=== PATIENT | male | born 1935 | race Caucasian/White ===

== ENCOUNTER 2017-08-31 15:51 | Inpatient (IN) | payer MEDICARE, OTHER ==
[~2017-08-31 15:51] MED LIST: ETOMIDATE 20 MG INJ; ROCURONIUM 50 MG INJ
[2017-08-31] MEDS ORDERED: BISACODYL (EC) 5 MG TAB PO (16:30)
[2017-08-31] MEDS: SOD CHLORIDE 0.9% 1,000 ML IV (16:30)
[2017-08-31] MEDS ORDERED: DOCUSATE SODIUM 100 MG CAP PO (16:30)
[2017-08-31] MEDS ORDERED: NACL 0.9% 3 ML SYG IV (16:30)
[2017-08-31] MEDS: NA PHOSPHATE/BIPHOS 133 ML ENEMA PR (17:45)
[2017-08-31] MEDS: MAGNESIUM HYDROXIDE 30ML CUP PO (17:46)
[2017-08-31] MEDS: METOCLOPRAMIDE 10 MG INJ IV (17:46)
[2017-08-31] MEDS: LORAZEPAM 2 MG INJ IV (19:12)
[2017-08-31] MEDS ORDERED: HEPARIN 5,000 UNIT/0.5 ML VIAL (20:47)
[2017-08-31] MEDS: POLYETHYLENE GLYCOL 17 GM PACKET PO (20:53)
[2017-08-31] MEDS: clonAZEPAM 0.5 MG TAB PO (20:53)
[2017-08-31] MEDS: ATORVASTATIN 10 MG TAB PO (20:53)
[2017-08-31] MEDS ORDERED: PROPRANOLOL 40 MG TAB PO (21:00)
[2017-08-31] MEDS ORDERED: ATORVASTATIN 10 MG TAB PO (21:00)
[2017-08-31] MEDS ORDERED: FERROUS FUMARATE (SR) TAB PO (21:00)
[2017-08-31] MEDS: PROPRANOLOL (LA) 60 MG CAP PO (22:17)
[2017-08-31] MEDS: HEPARIN 5,000 UNIT/0.5 ML VIAL SC (22:20)
[2017-08-31 23:53] LABS: AADO2 Arterial 552.4 mmHg (7.0-24.0); Allen Test ACCEPTAB; Arterial Base Excess -6.9 mmol/L (-3.0-3); Arterial Blood Gas Oxygen Sat 97.1 mmHG (95.0-100.0); Arterial COHb 0.6 % (0.0-3.0); Arterial Fraction of Oxyhgb 96.3 % (93.0-99.0); Arterial HCO3 20.9 mmol/L (22.0-26.0); Arterial MetHb 0.2 % (0.0-1.5); Arterial Total Hemglobin 14.1 g/dl (12.0-18.0); Arterial pCO2 50.7 mmhg (35-45); MODE MASK - NRB; Site Left Radial
[2017-09-01] MEDS: ALBUTEROL/IPRATROPIUM (NEB) 3 ML AMP HHN (00:19)
[2017-09-01] MEDS: METOCLOPRAMIDE 10 MG INJ IV ×5 (00:35→23:57)
[2017-09-01 01:19] LABS: ADD MAN DIFF? NO
[2017-09-01 01:22] LABS: BASOPHIL # 0.1 10^3/ul (0.0-0.1); BASOPHILS % 0.3 % (0.0-2.0); HEMATOCRIT 36.7 % (42.0-52.0); HEMOGLOBIN 12.2 g/dl (14.0-18.0); LYMPHOCYTES # 1.4 10^3/ul (0.8-2.9); MEAN CORPUSCULAR HEMOGLOBIN 30.3 pg (29.0-33.0); MEAN CORPUSCULAR HGB CONC 33.2 g/dl (32.0-37.0); MEAN CORPUSCULAR VOLUME 91.3 fl (82.0-101.0); MEAN PLATELET VOLUME 9.1 fl (7.4-10.4); MONOCYTES % 5.1 % (0.0-11.0); NEUTROPHIL # 17.6 10^3/ul (1.6-7.5); NEUTROPHILS % 86.5 % (39.0-77.0); NUCLEATED RED BLOOD CELLS% 0.1 /100WBC (0.0-0.0); PLATELET COUNT 365 10^3/UL (140-415); RED BLOOD COUNT 4.02 10^6/ul (4.70-6.10); RED CELL DISTRIBUTION WIDTH 13.4 % (11.5-14.5)
[2017-09-01 01:22] LABS: WHITE BLOOD COUNT 20.3 10^3/ul (4.8-10.8)
[2017-09-01] MEDS ORDERED: PROPOFOL 100 ML (01:40)
[2017-09-01 01:41] LABS: ANION GAP 20 (8-16); BLOOD UREA NITROGEN 38 mg/dl (7-20); CALCIUM 9.3 mg/dl (8.4-10.2); CARBON DIOXIDE 20 mmol/L (21-31); CHLORIDE 108 mmol/L (97-110); CREATININE 1.26 mg/dl (0.61-1.24); GLUCOSE 136 mg/dl (70-220); SODIUM 145 mmol/L (135-144)
[2017-09-01 01:44] LABS: POTASSIUM 2.7 mmol/L (3.5-5.1)
[2017-09-01 02:16] LABS: MAGNESIUM 1.9 mg/dl (1.7-2.5)
[2017-09-01] MEDS: PROPOFOL 100 ML IV ×2 (03:00→13:11)
[2017-09-01] MEDS: MAGNESIUM SULFATE 1 GM/D5W 100 ML IVPB (03:20)
[2017-09-01] MEDS: POTASSIUM CHLORIDE 250 ML IVPB ×2 (03:36→07:09)
[2017-09-01] MEDS: AMPICILLIN/SULB 3 GM/NS (PMX) 100 ML IVPB ×5 (03:36→23:57)
[2017-09-01 03:37] LABS: AADO2 Arterial 569.2 mmHg (7.0-24.0); Allen Test ACCEPTAB; Arterial Blood Gas Oxygen Sat 97.3 mmHG (95.0-100.0); Arterial COHb 0.3 % (0.0-3.0); Arterial Fraction of Oxyhgb 96.6 % (93.0-99.0); Arterial MetHb 0.4 % (0.0-1.5); MODE VENT - AC; Site Right Radial
[2017-09-01] MEDS: SOD CHLORIDE 0.9% 1,000 ML IV (05:45)
[2017-09-01] MEDS: HEPARIN 5,000 UNIT/0.5 ML VIAL SC ×3 (05:54→21:48)
[2017-09-01 06:35] LABS: ADD MAN DIFF? NO
[2017-09-01 06:38] LABS: WHITE BLOOD COUNT 19.9 10^3/ul (4.8-10.8)
[2017-09-01 06:38] LABS: BASOPHIL # 0.1 10^3/ul (0.0-0.1); BASOPHILS % 0.3 % (0.0-2.0); EOSINOPHILS % 0.1 % (0.0-7.0); HEMATOCRIT 36.8 % (42.0-52.0); LYMPHOCYTES # 2.2 10^3/ul (0.8-2.9); LYMPHOCYTES % 11.2 % (15.0-51.0); MEAN CORPUSCULAR HEMOGLOBIN 30.1 pg (29.0-33.0); MEAN CORPUSCULAR HGB CONC 32.6 g/dl (32.0-37.0); MEAN CORPUSCULAR VOLUME 92.2 fl (82.0-101.0); MEAN PLATELET VOLUME 10.1 fl (7.4-10.4); MONOCYTE # 1.2 10^3/ul (0.3-0.9); MONOCYTES % 5.9 % (0.0-11.0); NEUTROPHIL # 16.3 10^3/ul (1.6-7.5); NEUTROPHILS % 81.8 % (39.0-77.0); PLATELET COUNT 329 10^3/UL (140-415); RED BLOOD COUNT 3.99 10^6/ul (4.70-6.10); RED CELL DISTRIBUTION WIDTH 13.4 % (11.5-14.5)
[2017-09-01 07:18] LABS: ALANINE AMINOTRANSFERASE 12 IU/L (13-69); ALBUMIN 3.5 g/dl (3.3-4.9); ALBUMIN/GLOBULIN RATIO 1.06; ALKALINE PHOSPHATASE 101 IU/L (42-121); ANION GAP 25 (8-16); ASPARTATE AMINO TRANSFERASE 36 IU/L (15-46); BILIRUBIN,INDIRECT 0.2 mg/dl (0-1.1); BILIRUBIN,TOTAL 0.2 mg/dl (0.2-1.3); BLOOD UREA NITROGEN 39 mg/dl (7-20); CARBON DIOXIDE 15 mmol/L (21-31); CHLORIDE 110 mmol/L (97-110); CREATININE 1.39 mg/dl (0.61-1.24); GLUCOSE 104 mg/dl (70-220); POTASSIUM 3.1 mmol/L (3.5-5.1); SODIUM 147 mmol/L (135-144); TOTAL PROTEIN 6.8 g/dl (6.1-8.1)
[2017-09-01 07:33] LABS: LACTIC ACID 1.8 mmol/L (0.5-2.0)
[2017-09-01 07:34] LABS: PHOSPHORUS 4.5 mg/dl (2.5-4.9)
[2017-09-01 07:34] LABS: MAGNESIUM 1.9 mg/dl (1.7-2.5)
[2017-09-01] MEDS: PROPRANOLOL (LA) 60 MG CAP PO ×3 (09:00→20:15)
[2017-09-01] MEDS ORDERED: CLOPIDOGREL 75 MG TAB PO (09:00)
[2017-09-01] MEDS: POLYETHYLENE GLYCOL 17 GM PACKET PO ×2 (09:00→20:48)
[2017-09-01] MEDS: CLOPIDOGREL 75 MG TAB PO (09:00)
[2017-09-01] MEDS: ASPIRIN (EC) 81 MG TAB PO (09:00)
[2017-09-01] MEDS: ONDANSETRON 4 MG INJ IV (10:55)
[2017-09-01 13:09] LABS: AADO2 Arterial 108.2 mmHg (7.0-24.0); Allen Test ACCEPTAB; Arterial Base Excess -2.4 mmol/L (-3.0-3); Arterial Blood Gas Oxygen Sat 92.4 mmHG (95.0-100.0); Arterial COHb 0.3 % (0.0-3.0); Arterial Fraction of Oxyhgb 91.9 % (93.0-99.0); Arterial HCO3 21.2 mmol/L (22.0-26.0); Arterial MetHb 0.2 % (0.0-1.5); Arterial Total Hemglobin 12.5 g/dl (12.0-18.0); Arterial pCO2 32.6 mmhg (35-45); Blood Gas PS 10; MODE VENT - CPAP; Site Right Radial
[2017-09-01 19:52] LABS: ANION GAP 17 (8-16); BLOOD UREA NITROGEN 41 mg/dl (7-20); CALCIUM 8.9 mg/dl (8.4-10.2); CARBON DIOXIDE 26 mmol/L (21-31); CHLORIDE 110 mmol/L (97-110); CREATININE 1.24 mg/dl (0.61-1.24); GLUCOSE 105 mg/dl (70-220); POTASSIUM 3.1 mmol/L (3.5-5.1); SODIUM 150 mmol/L (135-144)
[2017-09-01] MEDS: ATORVASTATIN 10 MG TAB PO (20:15)
[2017-09-01 20:19] LABS: MAGNESIUM 2.4 mg/dl (1.7-2.5)
[2017-09-01] MEDS ORDERED: POTASSIUM CHLORIDE 250 ML IVPB (20:30)
[2017-09-01] MEDS: PHENOL 1.4% SOLN 180 ML BTL MT (20:44)
[2017-09-01] MEDS: POTASSIUM CHLORIDE 40 MEQ in SOD CHLORIDE 0.9% 250 ML IV (21:22)
[2017-09-02] MEDS: PROPOFOL 100 ML IV ×2 (00:02→15:08)
[2017-09-02] MEDS: POTASSIUM CHLORIDE 40 MEQ in SOD CHLORIDE 0.9% 250 ML IV (02:07)
[2017-09-02] MEDS: METOCLOPRAMIDE 10 MG INJ IV ×3 (05:53→18:22)
[2017-09-02] MEDS: AMPICILLIN/SULB 3 GM/NS (PMX) 100 ML IVPB ×3 (05:55→18:23)
[2017-09-02] MEDS: HEPARIN 5,000 UNIT/0.5 ML VIAL SC ×3 (05:59→21:44)
[2017-09-02 06:22] LABS: ADD MAN DIFF? NO
[2017-09-02 06:26] LABS: BASOPHIL # 0.1 10^3/ul (0.0-0.1); BASOPHILS % 0.4 % (0.0-2.0); EOSINOPHILS # 0.3 10^3/ul (0.0-0.5); HEMATOCRIT 34.1 % (42.0-52.0); HEMOGLOBIN 10.9 g/dl (14.0-18.0); LYMPHOCYTES # 1.7 10^3/ul (0.8-2.9); LYMPHOCYTES % 12.1 % (15.0-51.0); MEAN CORPUSCULAR HEMOGLOBIN 29.9 pg (29.0-33.0); MEAN CORPUSCULAR VOLUME 93.7 fl (82.0-101.0); MEAN PLATELET VOLUME 9.6 fl (7.4-10.4); MONOCYTES % 7.6 % (0.0-11.0); NEUTROPHIL # 10.6 10^3/ul (1.6-7.5); NEUTROPHILS % 77.4 % (39.0-77.0); PLATELET COUNT 334 10^3/UL (140-415); RED BLOOD COUNT 3.64 10^6/ul (4.70-6.10); RED CELL DISTRIBUTION WIDTH 13.7 % (11.5-14.5)
[2017-09-02 06:26] LABS: WHITE BLOOD COUNT 13.7 10^3/ul (4.8-10.8)
[2017-09-02 07:39] LABS: ALANINE AMINOTRANSFERASE 23 IU/L (13-69); ALBUMIN 3.1 g/dl (3.3-4.9); ALBUMIN/GLOBULIN RATIO 0.93; ALKALINE PHOSPHATASE 103 IU/L (42-121); ANION GAP 20 (8-16); ASPARTATE AMINO TRANSFERASE 33 IU/L (15-46); BILIRUBIN,INDIRECT 0.1 mg/dl (0-1.1); BILIRUBIN,TOTAL 0.1 mg/dl (0.2-1.3); BLOOD UREA NITROGEN 36 mg/dl (7-20); CARBON DIOXIDE 23 mmol/L (21-31); CHLORIDE 115 mmol/L (97-110); CREATININE 1.05 mg/dl (0.61-1.24); GLUCOSE 94 mg/dl (70-220); POTASSIUM 3.5 mmol/L (3.5-5.1); SODIUM 154 mmol/L (135-144); TOTAL PROTEIN 6.4 g/dl (6.1-8.1)
[2017-09-02] MEDS: POLYETHYLENE GLYCOL 17 GM PACKET PO ×2 (09:00→21:42)
[2017-09-02 09:03] LABS: AADO2 Arterial 105.2 mmHg (7.0-24.0); Allen Test ACCEPTAB; Arterial Blood Gas Oxygen Sat 92.4 mmHG (95.0-100.0); Arterial COHb 0.4 % (0.0-3.0); Arterial Fraction of Oxyhgb 91.7 % (93.0-99.0); Arterial HCO3 21.4 mmol/L (22.0-26.0); Arterial MetHb 0.4 % (0.0-1.5); Arterial Total Hemglobin 11.9 g/dl (12.0-18.0); Arterial pCO2 35.8 mmhg (35-45); MODE NASAL CANNULA; Site Right Radial
[2017-09-02] MEDS: BISACODYL (EC) 5 MG TAB PO (09:30)
[2017-09-02] MEDS: METHYLNALTREXONE 12 MG/0.6 ML VIAL SC (11:04)
[2017-09-02] MEDS: ASPIRIN (EC) 81 MG TAB PO (12:41)
[2017-09-02] MEDS: CLOPIDOGREL 75 MG TAB PO (12:41)
[2017-09-02] MEDS: PROPRANOLOL (LA) 60 MG CAP PO ×3 (12:41→21:43)
[2017-09-02] MEDS: ATORVASTATIN 10 MG TAB PO (21:42)
[2017-09-02] MEDS: clonAZEPAM 0.5 MG TAB PO (23:00)
[2017-09-03] MEDS: METOCLOPRAMIDE 10 MG INJ IV ×5 (00:23→23:40)
[2017-09-03] MEDS: AMPICILLIN/SULB 3 GM/NS (PMX) 100 ML IVPB ×5 (01:23→23:32)
[2017-09-03 05:09] LABS: ADD MAN DIFF? NO
[2017-09-03 05:15] LABS: BASOPHIL # 0.1 10^3/ul (0.0-0.1); BASOPHILS % 0.5 % (0.0-2.0); EOSINOPHILS # 0.4 10^3/ul (0.0-0.5); EOSINOPHILS % 3.3 % (0.0-7.0); HEMATOCRIT 32.1 % (42.0-52.0); HEMOGLOBIN 10.3 g/dl (14.0-18.0); LYMPHOCYTES # 1.9 10^3/ul (0.8-2.9); LYMPHOCYTES % 14.8 % (15.0-51.0); MEAN CORPUSCULAR HEMOGLOBIN 30.2 pg (29.0-33.0); MEAN CORPUSCULAR HGB CONC 32.1 g/dl (32.0-37.0); MEAN CORPUSCULAR VOLUME 94.1 fl (82.0-101.0); MEAN PLATELET VOLUME 9.9 fl (7.4-10.4); MONOCYTE # 1.2 10^3/ul (0.3-0.9); MONOCYTES % 8.9 % (0.0-11.0); NEUTROPHIL # 9.4 10^3/ul (1.6-7.5); PLATELET COUNT 327 10^3/UL (140-415); RED BLOOD COUNT 3.41 10^6/ul (4.70-6.10)
[2017-09-03 05:55] LABS: ALANINE AMINOTRANSFERASE 29 IU/L (13-69); ALBUMIN 2.7 g/dl (3.3-4.9); ALBUMIN/GLOBULIN RATIO 0.79; ALKALINE PHOSPHATASE 84 IU/L (42-121); ANION GAP 12 (8-16); ASPARTATE AMINO TRANSFERASE 28 IU/L (15-46); BILIRUBIN,INDIRECT 0.2 mg/dl (0-1.1); BILIRUBIN,TOTAL 0.2 mg/dl (0.2-1.3); BLOOD UREA NITROGEN 28 mg/dl (7-20); CARBON DIOXIDE 26 mmol/L (21-31); CHLORIDE 116 mmol/L (97-110); GLUCOSE 96 mg/dl (70-220); SODIUM 151 mmol/L (135-144); TOTAL PROTEIN 6.1 g/dl (6.1-8.1)
[2017-09-03] MEDS: HEPARIN 5,000 UNIT/0.5 ML VIAL SC ×3 (06:10→21:28)
[2017-09-03 06:16] LABS: POTASSIUM 2.5 mmol/L (3.5-5.1)
[2017-09-03] MEDS: POTASSIUM CHLORIDE 250 ML IVPB ×2 (08:01→13:36)
[2017-09-03] MEDS: PROPRANOLOL (LA) 60 MG CAP PO ×3 (08:59→21:37)
[2017-09-03] MEDS: CLOPIDOGREL 75 MG TAB PO (08:59)
[2017-09-03] MEDS: ASPIRIN (EC) 81 MG TAB PO (09:00)
[2017-09-03] MEDS: POLYETHYLENE GLYCOL 17 GM PACKET PO ×2 (09:00→21:30)
[2017-09-03] MEDS: clonAZEPAM 0.5 MG TAB PO ×2 (09:02→21:30)
[2017-09-03] MEDS: ATORVASTATIN 10 MG TAB PO (21:24)
[2017-09-04 05:44] LABS: ADD MAN DIFF? NO
[2017-09-04 05:56] LABS: BASOPHIL # 0.1 10^3/ul (0.0-0.1); BASOPHILS % 0.5 % (0.0-2.0); EOSINOPHILS # 0.3 10^3/ul (0.0-0.5); HEMATOCRIT 36.2 % (42.0-52.0); HEMOGLOBIN 11.4 g/dl (14.0-18.0); LYMPHOCYTES # 1.9 10^3/ul (0.8-2.9); LYMPHOCYTES % 12.4 % (15.0-51.0); MEAN CORPUSCULAR HEMOGLOBIN 30.3 pg (29.0-33.0); MEAN CORPUSCULAR HGB CONC 31.5 g/dl (32.0-37.0); MEAN CORPUSCULAR VOLUME 96.3 fl (82.0-101.0); MEAN PLATELET VOLUME 9.9 fl (7.4-10.4); MONOCYTE # 1.4 10^3/ul (0.3-0.9); MONOCYTES % 9.4 % (0.0-11.0); NEUTROPHIL # 11.5 10^3/ul (1.6-7.5); NEUTROPHILS % 75.1 % (39.0-77.0); PLATELET COUNT 373 10^3/UL (140-415); RED BLOOD COUNT 3.76 10^6/ul (4.70-6.10); RED CELL DISTRIBUTION WIDTH 13.9 % (11.5-14.5)
[2017-09-04 05:56] LABS: WHITE BLOOD COUNT 15.3 10^3/ul (4.8-10.8)
[2017-09-04] MEDS: METOCLOPRAMIDE 10 MG INJ IV ×3 (06:18→17:25)
[2017-09-04] MEDS: AMPICILLIN/SULB 3 GM/NS (PMX) 100 ML IVPB ×3 (06:19→17:25)
[2017-09-04] MEDS: HEPARIN 5,000 UNIT/0.5 ML VIAL SC ×2 (06:21→13:13)
[2017-09-04 07:19] LABS: ALANINE AMINOTRANSFERASE 19 IU/L (13-69); ALBUMIN 2.9 g/dl (3.3-4.9); ALBUMIN/GLOBULIN RATIO 0.78; ALKALINE PHOSPHATASE 86 IU/L (42-121); ANION GAP 13 (8-16); ASPARTATE AMINO TRANSFERASE 30 IU/L (15-46); BILIRUBIN,INDIRECT 0.4 mg/dl (0-1.1); BILIRUBIN,TOTAL 0.4 mg/dl (0.2-1.3); BLOOD UREA NITROGEN 22 mg/dl (7-20); CALCIUM 8.8 mg/dl (8.4-10.2); CARBON DIOXIDE 25 mmol/L (21-31); CHLORIDE 115 mmol/L (97-110); GLUCOSE 106 mg/dl (70-220); SODIUM 150 mmol/L (135-144); TOTAL PROTEIN 6.6 g/dl (6.1-8.1)
[2017-09-04] MEDS: ALBUTEROL/IPRATROPIUM (NEB) 3 ML AMP HHN ×2 (07:21→19:40)
[2017-09-04] MEDS: PROPRANOLOL (LA) 60 MG CAP PO ×3 (08:47→20:29)
[2017-09-04] MEDS: ASPIRIN (EC) 81 MG TAB PO (08:47)
[2017-09-04] MEDS: CLOPIDOGREL 75 MG TAB PO (08:48)
[2017-09-04] MEDS: POLYETHYLENE GLYCOL 17 GM PACKET PO ×2 (08:48→20:30)
[2017-09-04] MEDS: clonAZEPAM 0.5 MG TAB PO ×2 (08:49→20:27)
[2017-09-04 10:45] LABS: Allen Test ACCEPTAB; Arterial Base Excess -3.1 mmol/L (-3.0-3); Arterial COHb 0.6 % (0.0-3.0); Arterial Fraction of Oxyhgb 87.2 % (93.0-99.0); Arterial HCO3 20.5 mmol/L (22.0-26.0); Arterial MetHb 0.3 % (0.0-1.5); Arterial Total Hemglobin 12.5 g/dl (12.0-18.0); Arterial pCO2 32.3 mmhg (35-45); MODE NASAL CANNULA; Site Right Radial
[2017-09-04] MEDS: D5W + KCL 20 MEQ 1,000 ML IV ×2 (11:22→21:00)
[2017-09-04] MEDS: POTASSIUM CHLORIDE (SR) 20 MEQ TAB PO ×2 (11:37→15:44)
[2017-09-04] MEDS: FUROSEMIDE 40 MG INJ IV (11:41)
[2017-09-04] MEDS: ATORVASTATIN 10 MG TAB PO (20:28)
[2017-09-04] MEDS: BARIUM SULF 2% 450 ML BTL (BERRY SMOOTHIE) PO (22:30)
[2017-09-04] MEDS ORDERED: VANCOMYCIN IV PER PHARMACY XX (22:30)
[2017-09-04 23:35] LABS: Allen Test ACCEPTAB; Arterial Base Excess -5.8 mmol/L (-3.0-3); Arterial Blood Gas Oxygen Sat 93.6 mmHG (95.0-100.0); Arterial COHb 0.4 % (0.0-3.0); Arterial HCO3 18.2 mmol/L (22.0-26.0); Arterial MetHb 0.2 % (0.0-1.5); Arterial Total Hemglobin 12.7 g/dl (12.0-18.0); Arterial pCO2 31.3 mmhg (35-45); MODE MASK - NRB; Site Right Radial
[2017-09-04] MEDS: VANCOMYCIN 2 GM in SOD CHLORIDE 0.9% 500 ML IVPB (23:57)
[2017-09-05] MEDS ORDERED: SUCCINYLCHOLINE CHLORIDE 100 MG/5 ML SYG IV
[2017-09-05] MEDS ORDERED: ETOMIDATE 20 MG INJ
[2017-09-05] MEDS ORDERED: PIPER-TAZO 3.375 GM IV (PMX) 50 ML IVPB
[2017-09-05] MEDS: METOCLOPRAMIDE 10 MG INJ IV ×5 (00:07→23:54)
[2017-09-05] MEDS: HEPARIN 5,000 UNIT/0.5 ML VIAL SC ×4 (00:10→21:02)
[2017-09-05] MEDS: D5W + KCL 20 MEQ 1,000 ML IV (01:21)
[2017-09-05] MEDS ORDERED: PHENYLephrine (100 MCG/ML) 5ML SYG (02:23)
[2017-09-05] MEDS ORDERED: ROCURONIUM 50 MG INJ ×2 (02:23→07:00)
[2017-09-05 02:39] LABS: AADO2 Arterial 587.6 mmHg (7.0-24.0); Allen Test ACCEPTAB; Arterial Base Excess -4.2 mmol/L (-3.0-3); Arterial COHb 0 % (0.0-3.0); Arterial Fraction of Oxyhgb 96.8 % (93.0-99.0); Arterial HCO3 19.4 mmol/L (22.0-26.0); Arterial MetHb 0.2 % (0.0-1.5); Arterial Total Hemglobin 11.9 g/dl (12.0-18.0); Arterial pCO2 31.2 mmhg (35-45); MODE VENT - AC; Site Right Radial
[2017-09-05] MEDS ORDERED: METHYLENE BLUE 1% 10 ML INJ (03:07)
[2017-09-05] MEDS ORDERED: morphine 2 MG INJ IV (05:00)
[2017-09-05] MEDS ORDERED: LORAZEPAM 2 MG INJ IV (05:00)
[2017-09-05] MEDS ORDERED: LABETALOL HCL 20MG INJ IV (05:00)
[2017-09-05] MEDS ORDERED: EPHEDrine SULFATE 50 MG/5 ML SYG IV (05:00)
[2017-09-05] MEDS ORDERED: morphine 10 MG INJ IV (05:00)
[2017-09-05] MEDS ORDERED: hydrALAzine 20 MG INJ IV (05:00)
[2017-09-05] MEDS ORDERED: MIDAZOLAM 1 MG/ML 2 ML INJ IV (05:00)
[2017-09-05] MEDS ORDERED: NORepinephrine 8MG/250 ML (PMX 250 ML (05:16)
[2017-09-05] MEDS: NORepinephrine 8MG/250 ML (PMX 250 ML IV ×2 (05:30→05:41)
[2017-09-05] MEDS: SOD CHLORIDE 0.9% 1,000 ML IV ×2 (05:39→11:05)
[2017-09-05 05:44] LABS: ADD MAN DIFF? NO
[2017-09-05] MEDS: PANTOPRAZOLE 40 MG INJ IV (05:48)
[2017-09-05] MEDS: AMPICILLIN/SULB 3 GM/NS (PMX) 100 ML IVPB ×3 (05:48→15:33)
[2017-09-05 06:01] LABS: BASOPHILS % 0.2 % (0.0-2.0); EOSINOPHILS # 0.2 10^3/ul (0.0-0.5); EOSINOPHILS % 1.2 % (0.0-7.0); HEMATOCRIT 32.8 % (42.0-52.0); HEMOGLOBIN 10.1 g/dl (14.0-18.0); LYMPHOCYTES # 1.9 10^3/ul (0.8-2.9); LYMPHOCYTES % 14.3 % (15.0-51.0); MEAN CORPUSCULAR HEMOGLOBIN 29.9 pg (29.0-33.0); MEAN CORPUSCULAR HGB CONC 30.8 g/dl (32.0-37.0); MEAN PLATELET VOLUME 10.1 fl (7.4-10.4); MONOCYTE # 0.8 10^3/ul (0.3-0.9); MONOCYTES % 6.2 % (0.0-11.0); NEUTROPHILS % 77.1 % (39.0-77.0); PLATELET COUNT 325 10^3/UL (140-415); RED BLOOD COUNT 3.38 10^6/ul (4.70-6.10); RED CELL DISTRIBUTION WIDTH 13.8 % (11.5-14.5)
[2017-09-05] MEDS: morphine 2 MG INJ IV (06:29)
[2017-09-05] MEDS: D5-NS + KCL 20 MEQ 1,000 ML IV ×3 (06:33→23:04)
[2017-09-05 06:39] LABS: ANION GAP 10 (8-16); BLOOD UREA NITROGEN 22 mg/dl (7-20); CALCIUM 7.7 mg/dl (8.4-10.2); CARBON DIOXIDE 23 mmol/L (21-31); CHLORIDE 114 mmol/L (97-110); CREATININE 1.38 mg/dl (0.61-1.24); GLUCOSE 148 mg/dl (70-220); MAGNESIUM 1.4 mg/dl (1.7-2.5); POTASSIUM 3.1 mmol/L (3.5-5.1); SODIUM 144 mmol/L (135-144)
[2017-09-05 06:46] LABS: B-TYPE NATRIURETIC PEPTIDE 2600 PG/ML (0-450)
[2017-09-05] MEDS: ENOXAPARIN 40 MG/0.4 ML SYG SC (07:00)
[2017-09-05] MEDS: POLYETHYLENE GLYCOL 17 GM PACKET PO ×2 (08:40→20:18)
[2017-09-05] MEDS: morphine 4 MG/ML VIAL IV (08:52)
[2017-09-05] MEDS: ASPIRIN (EC) 81 MG TAB PO (09:00)
[2017-09-05] MEDS: PROPRANOLOL (LA) 60 MG CAP PO ×3 (09:00→20:17)
[2017-09-05] MEDS: clonAZEPAM 0.5 MG TAB PO ×2 (09:00→20:17)
[2017-09-05] MEDS: CLOPIDOGREL 75 MG TAB PO (09:00)
[2017-09-05] MEDS: FUROSEMIDE 40 MG INJ IV (09:00)
[2017-09-05] MEDS ORDERED: FENTAnyl (DRIP) 1000 mcg/100mL 100 ML IV (09:18)
[2017-09-05] MEDS: FENTAnyl (DRIP) 1000 mcg/100mL 100 ML IV ×2 (09:28→21:30)
[2017-09-05] MEDS: MAGNESIUM SULFATE 4 GM/100 ML 100 ML IVPB (09:35)
[2017-09-05] MEDS: POTASSIUM CHLORIDE 250 ML IVPB ×2 (10:34→13:28)
[2017-09-05] MEDS ORDERED: ALBUMIN HUMAN 5% 250 ML (13:11)
[2017-09-05] MEDS: metroNIDAZOLE 500 MG/NS (PMX) 100 ML IVPB (13:20)
[2017-09-05] MEDS: ALBUMIN HUMAN 5% 250 ML IV (13:29)
[2017-09-05] MEDS ORDERED: PHENYLephrine 20MG IN 250 ML 250 ML IV (13:30)
[2017-09-05] MEDS ORDERED: PHENYLephrine 10 MG INJ (14:42)
[2017-09-05] MEDS: PHENYLephrine 20MG IN 250 ML 250 ML IV ×4 (15:09→23:56)
[2017-09-05] MEDS: ATORVASTATIN 10 MG TAB PO (20:18)
[2017-09-05] MEDS: FAMOTIDINE 20 MG INJ IV (20:24)
[2017-09-05] MEDS ORDERED: AMPICILLIN/SULB 3 GM/NS (PMX) 100 ML IVPB (21:00)
[2017-09-05] MEDS: MEROPENEM 500MG/50 ML (PMX) 50 ML IVPB (21:30)
[2017-09-05] MEDS ORDERED: ACETAMINOPHEN 1000MG/100ML IV 100 ML (22:18)
[2017-09-05] MEDS ORDERED: ACETAMINOPHEN 1000MG/100ML IV 100 ML IVPB (22:30)
[2017-09-05] MEDS: ACETAMINOPHEN 1000 MG/100 ML IVPB (22:34)
[2017-09-06] MEDS: PHENYLephrine 40 MG in DEXTROSE 5% 496 ML IV ×2 (03:28→10:56)
[2017-09-06] MEDS: VANCOMYCIN 1 GM in NS 250 ML IVPB (04:45)
[2017-09-06 05:31] LABS: ADD MAN DIFF? NO
[2017-09-06 05:38] LABS: BASOPHIL # 0.1 10^3/ul (0.0-0.1); BASOPHILS % 0.4 % (0.0-2.0); EOSINOPHILS # 0.5 10^3/ul (0.0-0.5); EOSINOPHILS % 2.5 % (0.0-7.0); HEMATOCRIT 32.4 % (42.0-52.0); LYMPHOCYTES # 2.4 10^3/ul (0.8-2.9); LYMPHOCYTES % 12.4 % (15.0-51.0); MEAN CORPUSCULAR HEMOGLOBIN 30.6 pg (29.0-33.0); MEAN CORPUSCULAR HGB CONC 30.9 g/dl (32.0-37.0); MEAN CORPUSCULAR VOLUME 99.1 fl (82.0-101.0); MEAN PLATELET VOLUME 10.4 fl (7.4-10.4); MONOCYTE # 1.5 10^3/ul (0.3-0.9); MONOCYTES % 7.7 % (0.0-11.0); NEUTROPHIL # 14.7 10^3/ul (1.6-7.5); PLATELET COUNT 320 10^3/UL (140-415); RED BLOOD COUNT 3.27 10^6/ul (4.70-6.10); RED CELL DISTRIBUTION WIDTH 13.7 % (11.5-14.5)
[2017-09-06 05:38] LABS: WHITE BLOOD COUNT 19.3 10^3/ul (4.8-10.8)
[2017-09-06] MEDS: D5-NS + KCL 20 MEQ 1,000 ML IV (05:41)
[2017-09-06] MEDS: METOCLOPRAMIDE 10 MG INJ IV ×3 (05:41→18:40)
[2017-09-06] MEDS: HEPARIN 5,000 UNIT/0.5 ML VIAL SC ×2 (05:51→13:29)
[2017-09-06 05:56] LABS: LACTIC ACID 1.4 mmol/L (0.5-2.0)
[2017-09-06 06:10] LABS: ANION GAP 13 (8-16); BLOOD UREA NITROGEN 24 mg/dl (7-20); CALCIUM 7.5 mg/dl (8.4-10.2); CARBON DIOXIDE 17 mmol/L (21-31); CHLORIDE 119 mmol/L (97-110); GLUCOSE 182 mg/dl (70-220); PHOSPHORUS 3.6 mg/dl (2.5-4.9); POTASSIUM 4.6 mmol/L (3.5-5.1); SODIUM 144 mmol/L (135-144)
[2017-09-06] MEDS: MEROPENEM 500MG/50 ML (PMX) 50 ML IVPB ×3 (06:38→21:27)
[2017-09-06] MEDS: PROPRANOLOL (LA) 60 MG CAP PO (08:54)
[2017-09-06] MEDS: clonAZEPAM 0.5 MG TAB PO ×2 (08:56→21:00)
[2017-09-06] MEDS: CLOPIDOGREL 75 MG TAB PO (08:56)
[2017-09-06] MEDS: POLYETHYLENE GLYCOL 17 GM PACKET PO ×2 (08:56→21:00)
[2017-09-06] MEDS: ASPIRIN (EC) 81 MG TAB PO (08:57)
[2017-09-06] MEDS: FAMOTIDINE 20 MG INJ IV (09:00)
[2017-09-06] MEDS: ENOXAPARIN 40 MG/0.4 ML SYG SC (10:08)
[2017-09-06] MEDS: SOD CHLORIDE 0.9% 1,000 ML IV ×3 (10:09→18:12)
[2017-09-06] MEDS: ACETAMINOPHEN 1000 MG/100 ML IVPB (10:09)
[2017-09-06] MEDS ORDERED: ACETAMINOPHEN 650 MG SUPP PR (11:30)
[2017-09-06] MEDS: CASPOFUNGIN 70 MG in SOD CHLORIDE 0.9% 250 ML IVPB (18:13)
[2017-09-06] MEDS ORDERED: LORAZEPAM 2 MG INJ (20:54)
[2017-09-06] MEDS: ATORVASTATIN 10 MG TAB PO (21:00)
[2017-09-06] MEDS: LORAZEPAM 2 MG INJ IV (21:08)
[2017-09-06 21:27] LABS: ADD MAN DIFF? NO
[2017-09-06] MEDS: LEVETIRACETAM IV 500 MG in DEXTROSE 5% 100 ML IVPB (21:27)
[2017-09-06 21:29] LABS: BASOPHIL # 0.1 10^3/ul (0.0-0.1); BASOPHILS % 0.3 % (0.0-2.0); EOSINOPHILS # 0.2 10^3/ul (0.0-0.5); EOSINOPHILS % 1.2 % (0.0-7.0); HEMATOCRIT 30.2 % (42.0-52.0); HEMOGLOBIN 9.2 g/dl (14.0-18.0); LYMPHOCYTES # 1.2 10^3/ul (0.8-2.9); LYMPHOCYTES % 6.3 % (15.0-51.0); MEAN CORPUSCULAR HEMOGLOBIN 30.4 pg (29.0-33.0); MEAN CORPUSCULAR HGB CONC 30.5 g/dl (32.0-37.0); MEAN CORPUSCULAR VOLUME 99.7 fl (82.0-101.0); MEAN PLATELET VOLUME 10.2 fl (7.4-10.4); MONOCYTE # 0.9 10^3/ul (0.3-0.9); MONOCYTES % 4.4 % (0.0-11.0); NEUTROPHIL # 16.7 10^3/ul (1.6-7.5); NEUTROPHILS % 85.8 % (39.0-77.0); PLATELET COUNT 241 10^3/UL (140-415); RED BLOOD COUNT 3.03 10^6/ul (4.70-6.10); RED CELL DISTRIBUTION WIDTH 14.1 % (11.5-14.5)
[2017-09-06 21:29] LABS: WHITE BLOOD COUNT 19.4 10^3/ul (4.8-10.8)
[2017-09-06 21:48] LABS: ANION GAP 14 (8-16); BLOOD UREA NITROGEN 25 mg/dl (7-20); CALCIUM 7.3 mg/dl (8.4-10.2); CARBON DIOXIDE 16 mmol/L (21-31); CHLORIDE 115 mmol/L (97-110); CREATININE 2.62 mg/dl (0.61-1.24); GLUCOSE 86 mg/dl (70-220); MAGNESIUM 1.9 mg/dl (1.7-2.5); PHOSPHORUS 4.5 mg/dl (2.5-4.9); POTASSIUM 4.2 mmol/L (3.5-5.1); SODIUM 141 mmol/L (135-144)
[2017-09-06] MEDS: FENTAnyl (DRIP) 1000 mcg/100mL 100 ML IV (21:59)
[2017-09-06 23:10] LABS: SODIUM,URINE RANDOM 58 mmol/L (30-90)
[2017-09-06 23:10] LABS: CREATININE,URINE RANDOM 99.89 mg/dl (20-370)
[2017-09-06 23:31] LABS: ADD UMIC YES; UR AMORPHOUS CRYSTAL FEW /HPF (NONE SEEN); UR ASCORBIC ACID NEGATIVE (NEGATIVE); UR BACTERIA FEW /HPF (NONE SEEN); UR BILIRUBIN (Dip) NEGATIVE (NEGATIVE); UR BLOOD (Dip) 2+ mg/dL (NEGATIVE); UR CLARITY CLOUDY (CLEAR); UR COLOR YELLOW (YELLOW); UR GLUCOSE (Dip) NEGATIVE (NEGATIVE); UR KETONES (Dip) NEGATIVE (NEGATIVE); UR LEUKOCYTE ESTERASE (Dip) 3+ Leu/ul (NEGATIVE); UR MUCUS FEW /HPF (NONE SEEN); UR NITRITE (Dip) NEGATIVE (NEGATIVE); UR RBC 29 /HPF (0-5); UR SPECIFIC GRAVITY (Dip) 1.014 (1.003-1.030); UR TOTAL PROTEIN (Dip) 2+ mg/dl (NEGATIVE); UR UROBILINOGEN (Dip) NEGATIVE (NEGATIVE); UR WBC 126 /HPF (0-5)
[2017-09-07] MEDS: METOCLOPRAMIDE 10 MG INJ IV ×4 (00:37→18:23)
[2017-09-07] MEDS: HEPARIN 5,000 UNIT/0.5 ML VIAL SC ×4 (00:38→21:51)
[2017-09-07] MEDS: ACETAMINOPHEN 1000MG/100ML IV 100 ML IVPB (01:31)
[2017-09-07] MEDS: SOD CHLORIDE 0.9% 1,000 ML IV (04:37)
[2017-09-07 05:45] LABS: ADD MAN DIFF? NO
[2017-09-07 05:57] LABS: BASOPHIL # 0.1 10^3/ul (0.0-0.1); BASOPHILS % 0.2 % (0.0-2.0); EOSINOPHILS # 0.2 10^3/ul (0.0-0.5); EOSINOPHILS % 0.8 % (0.0-7.0); HEMATOCRIT 31.7 % (42.0-52.0); HEMOGLOBIN 9.5 g/dl (14.0-18.0); LYMPHOCYTES # 1.6 10^3/ul (0.8-2.9); LYMPHOCYTES % 7.1 % (15.0-51.0); MEAN CORPUSCULAR HEMOGLOBIN 30.2 pg (29.0-33.0); MEAN CORPUSCULAR VOLUME 100.6 fl (82.0-101.0); MEAN PLATELET VOLUME 10.6 fl (7.4-10.4); MONOCYTE # 0.9 10^3/ul (0.3-0.9); MONOCYTES % 4.3 % (0.0-11.0); NEUTROPHIL # 18.9 10^3/ul (1.6-7.5); NEUTROPHILS % 86.5 % (39.0-77.0); NUCLEATED RED BLOOD CELLS% 0.1 /100WBC (0.0-0.0); PLATELET COUNT 291 10^3/UL (140-415); RED BLOOD COUNT 3.15 10^6/ul (4.70-6.10); RED CELL DISTRIBUTION WIDTH 14.1 % (11.5-14.5)
[2017-09-07 05:57] LABS: WHITE BLOOD COUNT 21.9 10^3/ul (4.8-10.8)
[2017-09-07] MEDS: MEROPENEM 500MG/50 ML (PMX) 50 ML IVPB ×2 (06:04→21:34)
[2017-09-07 06:26] LABS: ANION GAP 12 (8-16); BLOOD UREA NITROGEN 27 mg/dl (7-20); CALCIUM 7.7 mg/dl (8.4-10.2); CARBON DIOXIDE 17 mmol/L (21-31); CHLORIDE 117 mmol/L (97-110); CREATININE 2.88 mg/dl (0.61-1.24); GLUCOSE 94 mg/dl (70-220); MAGNESIUM 1.9 mg/dl (1.7-2.5); PHOSPHORUS 4.7 mg/dl (2.5-4.9); POTASSIUM 4.3 mmol/L (3.5-5.1); SODIUM 142 mmol/L (135-144)
[2017-09-07 08:13] LABS: AADO2 Arterial 439.4 mmHg (7.0-24.0); Allen Test ACCEPTAB; Arterial Blood Gas Oxygen Sat 95.5 mmHG (95.0-100.0); Arterial COHb 0.1 % (0.0-3.0); Arterial HCO3 15.5 mmol/L (22.0-26.0); Arterial MetHb 0.4 % (0.0-1.5); Arterial Total Hemglobin 10.4 g/dl (12.0-18.0); Arterial pCO2 46.9 mmhg (35-45); MODE VENT - AC; Site Right Radial
[2017-09-07] MEDS: CLOPIDOGREL 75 MG TAB PO (08:58)
[2017-09-07] MEDS: ASPIRIN (EC) 81 MG TAB PO (08:58)
[2017-09-07] MEDS: POLYETHYLENE GLYCOL 17 GM PACKET PO ×2 (08:59→21:34)
[2017-09-07] MEDS: FAMOTIDINE 20 MG INJ IV (08:59)
[2017-09-07] MEDS: clonAZEPAM 0.5 MG TAB PO ×2 (08:59→21:34)
[2017-09-07] MEDS: NA BICARBONATE 8.4% 50 ML SYG IV (10:32)
[2017-09-07] MEDS: SODIUM BICARBONATE (IV ADD) 100 MEQ in DEXTROSE 5%-0.45% NACL 900 ML IV ×2 (12:08→21:33)
[2017-09-07] MEDS: metroNIDAZOLE 500 MG/NS (PMX) 100 ML IVPB ×2 (14:09→21:36)
[2017-09-07 14:26] LABS: Allen Test ACCEPTAB; MODE VENT - AC; Site Right Radial
[2017-09-07] MEDS: CASPOFUNGIN 50 MG in SOD CHLORIDE 0.9% 250 ML IVPB (15:47)
[2017-09-07] MEDS ORDERED: VANCOMYCIN 1 GM in NS 250 ML IVPB (17:00)
[2017-09-07] MEDS: ACETAMINOPHEN 325 MG TAB PO (21:34)
[2017-09-07] MEDS: ATORVASTATIN 10 MG TAB PO (21:34)
[2017-09-08] MEDS: METOCLOPRAMIDE 10 MG INJ IV ×5 (00:54→23:48)
[2017-09-08 05:20] LABS: ADD MAN DIFF? NO
[2017-09-08 05:24] LABS: BASOPHILS % 0.1 % (0.0-2.0); EOSINOPHILS # 0.1 10^3/ul (0.0-0.5); EOSINOPHILS % 0.7 % (0.0-7.0); HEMATOCRIT 28.1 % (42.0-52.0); HEMOGLOBIN 8.6 g/dl (14.0-18.0); LYMPHOCYTES # 1.2 10^3/ul (0.8-2.9); MEAN CORPUSCULAR HEMOGLOBIN 30.1 pg (29.0-33.0); MEAN CORPUSCULAR HGB CONC 30.6 g/dl (32.0-37.0); MEAN CORPUSCULAR VOLUME 98.3 fl (82.0-101.0); MEAN PLATELET VOLUME 10.7 fl (7.4-10.4); MONOCYTE # 0.7 10^3/ul (0.3-0.9); NEUTROPHIL # 14.7 10^3/ul (1.6-7.5); NEUTROPHILS % 87.4 % (39.0-77.0); PLATELET COUNT 229 10^3/UL (140-415); RED BLOOD COUNT 2.86 10^6/ul (4.70-6.10); RED CELL DISTRIBUTION WIDTH 14.1 % (11.5-14.5)
[2017-09-08 05:24] LABS: WHITE BLOOD COUNT 16.9 10^3/ul (4.8-10.8)
[2017-09-08 06:01] LABS: ANION GAP 13 (8-16); BLOOD UREA NITROGEN 33 mg/dl (7-20); CALCIUM 7.3 mg/dl (8.4-10.2); CARBON DIOXIDE 20 mmol/L (21-31); CHLORIDE 115 mmol/L (97-110); CREATININE 3.08 mg/dl (0.61-1.24); GLUCOSE 121 mg/dl (70-220); MAGNESIUM 1.8 mg/dl (1.7-2.5); PHOSPHORUS 5.2 mg/dl (2.5-4.9); POTASSIUM 3.8 mmol/L (3.5-5.1); SODIUM 144 mmol/L (135-144)
[2017-09-08 06:07] LABS: VANCOMYCIN,RANDOM 10.2 ug/ml
[2017-09-08] MEDS: metroNIDAZOLE 500 MG/NS (PMX) 100 ML IVPB ×3 (06:27→21:29)
[2017-09-08] MEDS: SODIUM BICARBONATE (IV ADD) 100 MEQ in DEXTROSE 5%-0.45% NACL 900 ML IV ×2 (06:28→10:23)
[2017-09-08] MEDS: HEPARIN 5,000 UNIT/0.5 ML VIAL SC ×3 (06:31→21:34)
[2017-09-08] MEDS: FUROSEMIDE 40 MG INJ IV (07:00)
[2017-09-08 08:48] LABS: Allen Test ACCEPTAB; MODE VENT - AC; Site Right Radial
[2017-09-08] MEDS: VANCOMYCIN 1 GM in NS 250 ML IVPB (09:53)
[2017-09-08] MEDS: POLYETHYLENE GLYCOL 17 GM PACKET PO ×2 (09:57→21:29)
[2017-09-08] MEDS: FAMOTIDINE 20 MG INJ IV (10:00)
[2017-09-08] MEDS: CLOPIDOGREL 75 MG TAB PO (10:23)
[2017-09-08] MEDS: ASPIRIN (EC) 81 MG TAB PO (10:23)
[2017-09-08] MEDS: MEROPENEM 500MG/50 ML (PMX) 50 ML IVPB ×2 (10:45→21:50)
[2017-09-08] MEDS: clonAZEPAM 0.5 MG TAB PO ×2 (10:45→21:39)
[2017-09-08 10:55] LABS: AADO2 Arterial 445.5 mmHg (7.0-24.0); Arterial Base Excess -9.3 mmol/L (-3.0-3); Arterial Blood Gas Oxygen Sat 95.9 mmHG (95.0-100.0); Arterial COHb 0.1 % (0.0-3.0); Arterial Fraction of Oxyhgb 95.3 % (93.0-99.0); Arterial HCO3 17.5 mmol/L (22.0-26.0); Arterial MetHb 0.5 % (0.0-1.5); Arterial Total Hemglobin 10.6 g/dl (12.0-18.0); Arterial pCO2 41.4 mmhg (35-45)
[2017-09-08 10:56] LABS: AADO2 Arterial 304.2 mmHg (7.0-24.0); Arterial Base Excess -9.1 mmol/L (-3.0-3); Arterial Blood Gas Oxygen Sat 99.1 mmHG (95.0-100.0); Arterial COHb 0.2 % (0.0-3.0); Arterial Fraction of Oxyhgb 98.6 % (93.0-99.0); Arterial HCO3 14.5 mmol/L (22.0-26.0); Arterial MetHb 0.3 % (0.0-1.5); Arterial Total Hemglobin 8.9 g/dl (12.0-18.0); Arterial pCO2 24.4 mmhg (35-45)
[2017-09-08] MEDS: MAGNESIUM SULFATE 2 GM/50 ML 50 ML IVPB (13:18)
[2017-09-08 14:01] LABS: CREATININE, RANDOM URINE 122 mg/dL (20-370); MICROALBUMIN 17.9 mg/dL; MICROALBUMIN/CREATININE RATIO 147 (<30)
[2017-09-08] MEDS: AMIODARONE 900 MG in DEXTROSE 5% 482 ML IV (15:11)
[2017-09-08] MEDS: CASPOFUNGIN 50 MG in SOD CHLORIDE 0.9% 250 ML IVPB (16:00)
[2017-09-08] MEDS: FENTAnyl (DRIP) 1000 mcg/100mL 100 ML IV (18:32)
[2017-09-08] MEDS: ATORVASTATIN 10 MG TAB PO (21:29)
[2017-09-08] MEDS: BALSAM PERU/CASTOR OIL 60 GM TUBE TOP (21:38)
[2017-09-08] MEDS ORDERED: NORepinephrine 8MG/250 ML (PMX 250 ML (22:24)
[2017-09-09] MEDS: SODIUM BICARBONATE (IV ADD) 100 MEQ in DEXTROSE 5%-0.45% NACL 900 ML IV (01:13)
[2017-09-09 05:01] LABS: ADD MAN DIFF? NO
[2017-09-09 05:12] LABS: BASOPHILS % 0.2 % (0.0-2.0); EOSINOPHILS # 0.4 10^3/ul (0.0-0.5); EOSINOPHILS % 2.8 % (0.0-7.0); HEMOGLOBIN 8.8 g/dl (14.0-18.0); LYMPHOCYTES # 0.9 10^3/ul (0.8-2.9); LYMPHOCYTES % 6.4 % (15.0-51.0); MEAN CORPUSCULAR HEMOGLOBIN 29.9 pg (29.0-33.0); MEAN CORPUSCULAR HGB CONC 31.4 g/dl (32.0-37.0); MEAN CORPUSCULAR VOLUME 95.2 fl (82.0-101.0); MEAN PLATELET VOLUME 10.2 fl (7.4-10.4); MONOCYTE # 0.7 10^3/ul (0.3-0.9); MONOCYTES % 5.2 % (0.0-11.0); NEUTROPHIL # 11.9 10^3/ul (1.6-7.5); NEUTROPHILS % 84.8 % (39.0-77.0); PLATELET COUNT 233 10^3/UL (140-415); RED BLOOD COUNT 2.94 10^6/ul (4.70-6.10); RED CELL DISTRIBUTION WIDTH 14.1 % (11.5-14.5)
[2017-09-09] MEDS: metroNIDAZOLE 500 MG/NS (PMX) 100 ML IVPB ×3 (05:20→21:39)
[2017-09-09] MEDS: HEPARIN 5,000 UNIT/0.5 ML VIAL SC ×3 (05:21→21:41)
[2017-09-09] MEDS: METOCLOPRAMIDE 10 MG INJ IV ×3 (05:30→18:36)
[2017-09-09 06:27] LABS: ANION GAP 9 (8-16); BLOOD UREA NITROGEN 35 mg/dl (7-20); CALCIUM 7.5 mg/dl (8.4-10.2); CARBON DIOXIDE 26 mmol/L (21-31); CHLORIDE 111 mmol/L (97-110); CREATININE 2.85 mg/dl (0.61-1.24); GLUCOSE 108 mg/dl (70-220); MAGNESIUM 1.8 mg/dl (1.7-2.5); PHOSPHORUS 4.2 mg/dl (2.5-4.9); POTASSIUM 3.2 mmol/L (3.5-5.1); SODIUM 143 mmol/L (135-144)
[2017-09-09] MEDS: SOD CHLORIDE 0.9% 1,000 ML IV (08:13)
[2017-09-09] MEDS: POTASSIUM CHLORIDE 250 ML IVPB (08:13)
[2017-09-09 09:13] LABS: AADO2 Arterial 411.1 mmHg (7.0-24.0); Allen Test ACCEPTAB; Arterial Base Excess -3.1 mmol/L (-3.0-3); Arterial Blood Gas Oxygen Sat 97.5 mmHG (95.0-100.0); Arterial COHb 0.5 % (0.0-3.0); Arterial Fraction of Oxyhgb 96.7 % (93.0-99.0); Arterial HCO3 23.9 mmol/L (22.0-26.0); Arterial MetHb 0.3 % (0.0-1.5); Arterial Total Hemglobin 12.1 g/dl (12.0-18.0); Arterial pCO2 51.6 mmhg (35-45); MODE VENT - AC; Site Right Radial
[2017-09-09] MEDS: FAMOTIDINE 20 MG INJ IV (09:19)
[2017-09-09] MEDS: ASPIRIN (EC) 81 MG TAB PO (09:19)
[2017-09-09] MEDS: MEROPENEM 500MG/50 ML (PMX) 50 ML IVPB ×2 (09:19→21:39)
[2017-09-09] MEDS: CLOPIDOGREL 75 MG TAB PO (09:19)
[2017-09-09] MEDS: POLYETHYLENE GLYCOL 17 GM PACKET PO ×2 (09:19→21:40)
[2017-09-09] MEDS: BALSAM PERU/CASTOR OIL 60 GM TUBE TOP ×2 (09:23→21:40)
[2017-09-09] MEDS: clonAZEPAM 0.5 MG TAB PO ×2 (09:28→21:42)
[2017-09-09] MEDS: FUROSEMIDE 40 MG INJ IV (10:09)
[2017-09-09] MEDS: FENTAnyl (DRIP) 1000 mcg/100mL 100 ML IV (12:57)
[2017-09-09] MEDS: CASPOFUNGIN 50 MG in SOD CHLORIDE 0.9% 250 ML IVPB (15:50)
[2017-09-09] MEDS: ACETAMINOPHEN 325 MG TAB PO (21:40)
[2017-09-09] MEDS: ATORVASTATIN 10 MG TAB PO (21:40)
[2017-09-10] MEDS: METOCLOPRAMIDE 10 MG INJ IV ×5 (00:27→23:33)
[2017-09-10 03:43] LABS: ADD MAN DIFF? NO
[2017-09-10] MEDS: SOD CHLORIDE 0.9% 1,000 ML IV ×2 (04:06→23:24)
[2017-09-10] MEDS: FENTAnyl (DRIP) 1000 mcg/100mL 100 ML IV (04:17)
[2017-09-10 04:19] LABS: WHITE BLOOD COUNT 11.1 10^3/ul (4.8-10.8)
[2017-09-10 04:19] LABS: BASOPHILS % 0.2 % (0.0-2.0); EOSINOPHILS # 0.3 10^3/ul (0.0-0.5); EOSINOPHILS % 2.3 % (0.0-7.0); HEMATOCRIT 26.8 % (42.0-52.0); HEMOGLOBIN 8.5 g/dl (14.0-18.0); LYMPHOCYTES # 1.1 10^3/ul (0.8-2.9); LYMPHOCYTES % 9.7 % (15.0-51.0); MEAN CORPUSCULAR HEMOGLOBIN 29.7 pg (29.0-33.0); MEAN CORPUSCULAR HGB CONC 31.7 g/dl (32.0-37.0); MEAN CORPUSCULAR VOLUME 93.7 fl (82.0-101.0); MEAN PLATELET VOLUME 10.4 fl (7.4-10.4); MONOCYTE # 0.6 10^3/ul (0.3-0.9); MONOCYTES % 5.1 % (0.0-11.0); NEUTROPHIL # 9.1 10^3/ul (1.6-7.5); NEUTROPHILS % 82.1 % (39.0-77.0); PLATELET COUNT 281 10^3/UL (140-415); RED BLOOD COUNT 2.86 10^6/ul (4.70-6.10); RED CELL DISTRIBUTION WIDTH 14.1 % (11.5-14.5)
[2017-09-10 04:20] LABS: ANION GAP 11 (8-16); BLOOD UREA NITROGEN 35 mg/dl (7-20); CALCIUM 7.2 mg/dl (8.4-10.2); CARBON DIOXIDE 27 mmol/L (21-31); CHLORIDE 108 mmol/L (97-110); CREATININE 2.45 mg/dl (0.61-1.24); GLUCOSE 96 mg/dl (70-220); MAGNESIUM 1.6 mg/dl (1.7-2.5); POTASSIUM 3.1 mmol/L (3.5-5.1); SODIUM 143 mmol/L (135-144)
[2017-09-10] MEDS: metroNIDAZOLE 500 MG/NS (PMX) 100 ML IVPB ×3 (05:52→21:20)
[2017-09-10] MEDS: POTASSIUM CHLORIDE 50 ML IVPB ×4 (05:52→09:11)
[2017-09-10] MEDS: HEPARIN 5,000 UNIT/0.5 ML VIAL SC (05:53)
[2017-09-10] MEDS ORDERED: POTASSIUM CHLORIDE 30 MEQ in SOD CHLORIDE 0.9% 150 ML IVPB (06:30)
[2017-09-10 08:08] LABS: AADO2 Arterial 337.6 mmHg (7.0-24.0); Allen Test ACCEPTAB; Arterial Base Excess -0.1 mmol/L (-3.0-3); Arterial Blood Gas Oxygen Sat 98.2 mmHG (95.0-100.0); Arterial COHb 0.7 % (0.0-3.0); Arterial Fraction of Oxyhgb 97.3 % (93.0-99.0); Arterial HCO3 24.8 mmol/L (22.0-26.0); Arterial MetHb 0.2 % (0.0-1.5); Arterial pCO2 41.3 mmhg (35-45); MODE VENT - AC; Site Right Radial
[2017-09-10] MEDS: POLYETHYLENE GLYCOL 17 GM PACKET PO ×2 (09:00→20:42)
[2017-09-10] MEDS: CLOPIDOGREL 75 MG TAB PO (09:11)
[2017-09-10] MEDS: MEROPENEM 500MG/50 ML (PMX) 50 ML IVPB ×2 (09:11→20:42)
[2017-09-10] MEDS: FAMOTIDINE 20 MG INJ IV (09:11)
[2017-09-10] MEDS: clonAZEPAM 0.5 MG TAB PO ×2 (09:11→20:42)
[2017-09-10] MEDS: ASPIRIN (EC) 81 MG TAB PO (09:11)
[2017-09-10] MEDS: BALSAM PERU/CASTOR OIL 60 GM TUBE TOP ×2 (09:12→20:42)
[2017-09-10] MEDS: VANCOMYCIN 1 GM in NS 250 ML IVPB (10:03)
[2017-09-10] MEDS: ENOXAPARIN 80 MG/0.8 ML SYG SC (10:08)
[2017-09-10] MEDS: MAGNESIUM SULFATE 2 GM/50 ML 50 ML IVPB (11:11)
[2017-09-10] MEDS: FUROSEMIDE 20 MG INJ IV (15:30)
[2017-09-10] MEDS: CASPOFUNGIN 50 MG in SOD CHLORIDE 0.9% 250 ML IVPB (15:30)
[2017-09-10] MEDS: ATORVASTATIN 10 MG TAB PO (20:42)
[2017-09-11] MEDS: FENTAnyl (DRIP) 1000 mcg/100mL 100 ML IV (01:54)
[2017-09-11 05:31] LABS: ADD MAN DIFF? NO
[2017-09-11] MEDS: METOCLOPRAMIDE 10 MG INJ IV ×3 (05:37→16:45)
[2017-09-11] MEDS: metroNIDAZOLE 500 MG/NS (PMX) 100 ML IVPB ×3 (05:37→21:39)
[2017-09-11 05:38] LABS: BASOPHILS % 0.3 % (0.0-2.0); EOSINOPHILS # 0.3 10^3/ul (0.0-0.5); EOSINOPHILS % 3.4 % (0.0-7.0); HEMATOCRIT 26.4 % (42.0-52.0); HEMOGLOBIN 8.4 g/dl (14.0-18.0); LYMPHOCYTES # 0.9 10^3/ul (0.8-2.9); LYMPHOCYTES % 10.4 % (15.0-51.0); MEAN CORPUSCULAR HEMOGLOBIN 29.6 pg (29.0-33.0); MEAN CORPUSCULAR HGB CONC 31.8 g/dl (32.0-37.0); MEAN PLATELET VOLUME 10.2 fl (7.4-10.4); MONOCYTE # 0.5 10^3/ul (0.3-0.9); MONOCYTES % 5.4 % (0.0-11.0); NEUTROPHIL # 7.1 10^3/ul (1.6-7.5); NEUTROPHILS % 79.5 % (39.0-77.0); PLATELET COUNT 304 10^3/UL (140-415); RED BLOOD COUNT 2.84 10^6/ul (4.70-6.10); RED CELL DISTRIBUTION WIDTH 14.3 % (11.5-14.5)
[2017-09-11 05:38] LABS: WHITE BLOOD COUNT 8.9 10^3/ul (4.8-10.8)
[2017-09-11 06:11] LABS: ANION GAP 10 (8-16); BLOOD UREA NITROGEN 37 mg/dl (7-20); CALCIUM 7.4 mg/dl (8.4-10.2); CARBON DIOXIDE 27 mmol/L (21-31); CHLORIDE 111 mmol/L (97-110); CREATININE 1.84 mg/dl (0.61-1.24); GLUCOSE 95 mg/dl (70-220); MAGNESIUM 1.8 mg/dl (1.7-2.5); PHOSPHORUS 2.9 mg/dl (2.5-4.9); SODIUM 145 mmol/L (135-144)
[2017-09-11 06:15] LABS: POTASSIUM 2.9 mmol/L (3.5-5.1)
[2017-09-11 08:11] LABS: AADO2 Arterial 305.9 mmHg (7.0-24.0); Allen Test ACCEPTAB; Arterial Base Excess -0.7 mmol/L (-3.0-3); Arterial COHb 0.3 % (0.0-3.0); Arterial Fraction of Oxyhgb 95.6 % (93.0-99.0); Arterial HCO3 22.8 mmol/L (22.0-26.0); Arterial MetHb 0.1 % (0.0-1.5); Arterial Total Hemglobin 9.2 g/dl (12.0-18.0); Arterial pCO2 33.2 mmhg (35-45); MODE VENT - AC; Site Right Radial
[2017-09-11] MEDS: POLYETHYLENE GLYCOL 17 GM PACKET PO ×2 (08:23→20:40)
[2017-09-11] MEDS: FAMOTIDINE 20 MG INJ IV (09:29)
[2017-09-11] MEDS: POTASSIUM CHLORIDE 20 MEQ POWDER FOR ORAL SOLN GTB ×2 (09:29→10:34)
[2017-09-11] MEDS: ASPIRIN 81 MG TAB GTB (09:29)
[2017-09-11] MEDS: clonAZEPAM 0.5 MG TAB PO ×2 (09:29→20:41)
[2017-09-11] MEDS: CLOPIDOGREL 75 MG TAB PO (09:29)
[2017-09-11] MEDS: MEROPENEM 500MG/50 ML (PMX) 50 ML IVPB ×2 (09:30→20:35)
[2017-09-11] MEDS: BALSAM PERU/CASTOR OIL 60 GM TUBE TOP ×2 (09:30→20:41)
[2017-09-11] MEDS: ENOXAPARIN 80 MG/0.8 ML SYG SC (09:31)
[2017-09-11] MEDS: FUROSEMIDE 40 MG INJ IV ×2 (09:34→16:53)
[2017-09-11] MEDS: MAGNESIUM SULFATE 2 GM/50 ML 50 ML IVPB (10:29)
[2017-09-11] MEDS: DIGOXIN 500 MCG INJ IV ×2 (13:37→19:38)
[2017-09-11 14:17] LABS: ANION GAP 13 (8-16); BLOOD UREA NITROGEN 37 mg/dl (7-20); CALCIUM 7.4 mg/dl (8.4-10.2); CARBON DIOXIDE 26 mmol/L (21-31); CHLORIDE 109 mmol/L (97-110); CREATININE 1.93 mg/dl (0.61-1.24); GLUCOSE 106 mg/dl (70-220); POTASSIUM 3.4 mmol/L (3.5-5.1); SODIUM 145 mmol/L (135-144)
[2017-09-11] MEDS: CASPOFUNGIN 50 MG in SOD CHLORIDE 0.9% 250 ML IVPB (16:53)
[2017-09-11] MEDS: AMIODARONE 200 MG TAB PO (20:41)
[2017-09-11] MEDS: ATORVASTATIN 10 MG TAB PO (20:41)
[2017-09-11] MEDS: METOPROLOL 25 MG TAB PO (20:41)
[2017-09-12] MEDS: metroNIDAZOLE 500 MG/NS (PMX) 100 ML IVPB ×3 (05:15→22:26)
[2017-09-12] MEDS: METOCLOPRAMIDE 10 MG INJ IV ×2 (05:15)
[2017-09-12 05:18] LABS: ADD MAN DIFF? NO
[2017-09-12 05:20] LABS: WHITE BLOOD COUNT 8.1 10^3/ul (4.8-10.8)
[2017-09-12 05:20] LABS: BASOPHILS % 0.4 % (0.0-2.0); EOSINOPHILS # 0.4 10^3/ul (0.0-0.5); HEMATOCRIT 25.2 % (42.0-52.0); HEMOGLOBIN 8.1 g/dl (14.0-18.0); LYMPHOCYTES % 12.7 % (15.0-51.0); MEAN CORPUSCULAR HEMOGLOBIN 30.2 pg (29.0-33.0); MEAN CORPUSCULAR HGB CONC 32.1 g/dl (32.0-37.0); MEAN PLATELET VOLUME 10.1 fl (7.4-10.4); MONOCYTE # 0.5 10^3/ul (0.3-0.9); MONOCYTES % 5.8 % (0.0-11.0); NEUTROPHIL # 6.1 10^3/ul (1.6-7.5); NEUTROPHILS % 74.9 % (39.0-77.0); PLATELET COUNT 336 10^3/UL (140-415); RED BLOOD COUNT 2.68 10^6/ul (4.70-6.10); RED CELL DISTRIBUTION WIDTH 14.6 % (11.5-14.5)
[2017-09-12 06:04] LABS: ALANINE AMINOTRANSFERASE 24 IU/L (13-69); ALBUMIN 1.9 g/dl (3.3-4.9); ALBUMIN/GLOBULIN RATIO 0.67; ALKALINE PHOSPHATASE 193 IU/L (42-121); ANION GAP 12 (8-16); ASPARTATE AMINO TRANSFERASE 32 IU/L (15-46); BLOOD UREA NITROGEN 37 mg/dl (7-20); CALCIUM 7.4 mg/dl (8.4-10.2); CARBON DIOXIDE 29 mmol/L (21-31); CHLORIDE 108 mmol/L (97-110); CREATININE 1.93 mg/dl (0.61-1.24); GLUCOSE 96 mg/dl (70-220); SODIUM 146 mmol/L (135-144); TOTAL PROTEIN 4.7 g/dl (6.1-8.1)
[2017-09-12 06:05] LABS: POTASSIUM 2.7 mmol/L (3.5-5.1)
[2017-09-12] MEDS ORDERED: POTASSIUM CHLORIDE 250 ML (06:10)
[2017-09-12] MEDS: POTASSIUM CHLORIDE 250 ML IVPB ×3 (06:12→16:38)
[2017-09-12 07:12] LABS: MAGNESIUM 2.1 mg/dl (1.7-2.5)
[2017-09-12 07:12] LABS: PHOSPHORUS 2.6 mg/dl (2.5-4.9)
[2017-09-12] MEDS: POLYETHYLENE GLYCOL 17 GM PACKET PO (08:08)
[2017-09-12] MEDS: METOPROLOL 25 MG TAB PO ×2 (08:42→20:56)
[2017-09-12] MEDS: SPIRONOLACTONE 25 MG TAB NGT (08:42)
[2017-09-12] MEDS: ASPIRIN 81 MG TAB GTB (08:42)
[2017-09-12] MEDS: FUROSEMIDE 40 MG INJ IV (08:42)
[2017-09-12] MEDS: AMIODARONE 200 MG TAB PO ×3 (08:43→20:55)
[2017-09-12] MEDS: CLOPIDOGREL 75 MG TAB PO (08:43)
[2017-09-12] MEDS: BALSAM PERU/CASTOR OIL 60 GM TUBE TOP ×2 (08:43→20:56)
[2017-09-12] MEDS: clonAZEPAM 0.5 MG TAB PO ×2 (08:45→20:55)
[2017-09-12] MEDS: MEROPENEM 500MG/50 ML (PMX) 50 ML IVPB ×2 (08:45→21:29)
[2017-09-12] MEDS: FAMOTIDINE 20 MG INJ IV (08:45)
[2017-09-12] MEDS: ENOXAPARIN 80 MG/0.8 ML SYG SC (08:46)
[2017-09-12 10:18] LABS: VANCOMYCIN,TROUGH 9.9 ug/ml (10.0-20.0)
[2017-09-12] MEDS: VANCOMYCIN 1 GM in NS 250 ML IVPB (10:27)
[2017-09-12 15:21] LABS: ANION GAP 10 (8-16); BLOOD UREA NITROGEN 39 mg/dl (7-20); CALCIUM 7.2 mg/dl (8.4-10.2); CARBON DIOXIDE 29 mmol/L (21-31); CHLORIDE 111 mmol/L (97-110); CREATININE 1.61 mg/dl (0.61-1.24); GLUCOSE 96 mg/dl (70-220); POTASSIUM 3.5 mmol/L (3.5-5.1); SODIUM 146 mmol/L (135-144)
[2017-09-12] MEDS: CASPOFUNGIN 50 MG in SOD CHLORIDE 0.9% 250 ML IVPB (15:57)
[2017-09-12] MEDS: ATORVASTATIN 10 MG TAB PO (20:55)
[2017-09-13] MEDS: ACETAMINOPHEN 325 MG TAB PO ×2 (04:13→16:44)
[2017-09-13 05:42] LABS: ADD MAN DIFF? NO
[2017-09-13 05:48] LABS: WHITE BLOOD COUNT 9.3 10^3/ul (4.8-10.8)
[2017-09-13 05:48] LABS: BASOPHILS % 0.3 % (0.0-2.0); EOSINOPHILS # 0.4 10^3/ul (0.0-0.5); EOSINOPHILS % 4.2 % (0.0-7.0); HEMATOCRIT 26.4 % (42.0-52.0); HEMOGLOBIN 8.2 g/dl (14.0-18.0); LYMPHOCYTES # 1.1 10^3/ul (0.8-2.9); LYMPHOCYTES % 11.4 % (15.0-51.0); MEAN CORPUSCULAR HEMOGLOBIN 29.9 pg (29.0-33.0); MEAN CORPUSCULAR HGB CONC 31.1 g/dl (32.0-37.0); MEAN CORPUSCULAR VOLUME 96.4 fl (82.0-101.0); MEAN PLATELET VOLUME 10.1 fl (7.4-10.4); MONOCYTE # 0.6 10^3/ul (0.3-0.9); MONOCYTES % 6.4 % (0.0-11.0); NEUTROPHIL # 7.1 10^3/ul (1.6-7.5); NEUTROPHILS % 76.2 % (39.0-77.0); PLATELET COUNT 407 10^3/UL (140-415); RED BLOOD COUNT 2.74 10^6/ul (4.70-6.10); RED CELL DISTRIBUTION WIDTH 14.9 % (11.5-14.5)
[2017-09-13] MEDS: metroNIDAZOLE 500 MG/NS (PMX) 100 ML IVPB ×3 (05:55→23:13)
[2017-09-13 06:11] LABS: PHOSPHORUS 2.7 mg/dl (2.5-4.9)
[2017-09-13 06:11] LABS: MAGNESIUM 1.9 mg/dl (1.7-2.5)
[2017-09-13 06:22] LABS: ALANINE AMINOTRANSFERASE 22 IU/L (13-69); ALBUMIN 1.7 g/dl (3.3-4.9); ALBUMIN/GLOBULIN RATIO 0.62; ALKALINE PHOSPHATASE 172 IU/L (42-121); ANION GAP 9 (8-16); ASPARTATE AMINO TRANSFERASE 29 IU/L (15-46); BLOOD UREA NITROGEN 39 mg/dl (7-20); CALCIUM 7.6 mg/dl (8.4-10.2); CARBON DIOXIDE 29 mmol/L (21-31); CHLORIDE 115 mmol/L (97-110); CREATININE 1.66 mg/dl (0.61-1.24); GLUCOSE 99 mg/dl (70-220); POTASSIUM 3.9 mmol/L (3.5-5.1); SODIUM 149 mmol/L (135-144); TOTAL PROTEIN 4.4 g/dl (6.1-8.1)
[2017-09-13] MEDS: ENOXAPARIN 80 MG/0.8 ML SYG SC (08:40)
[2017-09-13] MEDS: CLOPIDOGREL 75 MG TAB PO (08:41)
[2017-09-13] MEDS: FAMOTIDINE 20 MG INJ IV ×2 (08:41→20:50)
[2017-09-13] MEDS: clonAZEPAM 0.5 MG TAB PO (08:41)
[2017-09-13] MEDS: BALSAM PERU/CASTOR OIL 60 GM TUBE TOP ×2 (08:41→21:01)
[2017-09-13] MEDS: SPIRONOLACTONE 25 MG TAB NGT (08:41)
[2017-09-13] MEDS: FUROSEMIDE 40 MG INJ IV ×3 (08:42→18:10)
[2017-09-13] MEDS: METOPROLOL 25 MG TAB PO ×2 (08:42→20:51)
[2017-09-13] MEDS: AMIODARONE 200 MG TAB PO ×3 (08:43→20:52)
[2017-09-13] MEDS: MEROPENEM 500MG/50 ML (PMX) 50 ML IVPB (11:03)
[2017-09-13 13:12] LABS: Allen Test ACCEPTAB; MODE VENT - AC; Site Right Radial
[2017-09-13] MEDS: CASPOFUNGIN 50 MG in SOD CHLORIDE 0.9% 250 ML IVPB (14:06)
[2017-09-13] MEDS: ATORVASTATIN 10 MG TAB PO (20:50)
[2017-09-13] MEDS: MEROPENEM 1 GM/50ML(PMX) 50 ML IVPB (21:01)
[2017-09-14 05:11] LABS: ADD MAN DIFF? NO
[2017-09-14 05:13] LABS: BASOPHILS % 0.3 % (0.0-2.0); EOSINOPHILS # 0.4 10^3/ul (0.0-0.5); HEMATOCRIT 26.1 % (42.0-52.0); HEMOGLOBIN 8.3 g/dl (14.0-18.0); LYMPHOCYTES # 1.4 10^3/ul (0.8-2.9); LYMPHOCYTES % 11.8 % (15.0-51.0); MEAN CORPUSCULAR HEMOGLOBIN 29.9 pg (29.0-33.0); MEAN CORPUSCULAR HGB CONC 31.8 g/dl (32.0-37.0); MEAN CORPUSCULAR VOLUME 93.9 fl (82.0-101.0); MEAN PLATELET VOLUME 9.7 fl (7.4-10.4); MONOCYTE # 0.6 10^3/ul (0.3-0.9); MONOCYTES % 5.4 % (0.0-11.0); NEUTROPHIL # 9.2 10^3/ul (1.6-7.5); NEUTROPHILS % 78.6 % (39.0-77.0); PLATELET COUNT 444 10^3/UL (140-415); RED BLOOD COUNT 2.78 10^6/ul (4.70-6.10); RED CELL DISTRIBUTION WIDTH 15.1 % (11.5-14.5)
[2017-09-14 05:13] LABS: WHITE BLOOD COUNT 11.7 10^3/ul (4.8-10.8)
[2017-09-14 05:49] LABS: ANION GAP 9 (8-16); BLOOD UREA NITROGEN 42 mg/dl (7-20); CALCIUM 7.6 mg/dl (8.4-10.2); CARBON DIOXIDE 30 mmol/L (21-31); CHLORIDE 113 mmol/L (97-110); CREATININE 1.49 mg/dl (0.61-1.24); GLUCOSE 91 mg/dl (70-220); MAGNESIUM 1.7 mg/dl (1.7-2.5); PHOSPHORUS 3.5 mg/dl (2.5-4.9); POTASSIUM 3.6 mmol/L (3.5-5.1); SODIUM 148 mmol/L (135-144)
[2017-09-14] MEDS ORDERED: PENDING SANTYL ORDER FOR WOUND CARE XX (06:00)
[2017-09-14] MEDS: FUROSEMIDE 40 MG INJ IV ×2 (06:01→18:01)
[2017-09-14] MEDS: metroNIDAZOLE 500 MG/NS (PMX) 100 ML IVPB ×3 (06:01→21:39)
[2017-09-14 07:57] LABS: AADO2 Arterial 169.1 mmHg (7.0-24.0); Arterial Blood Gas Oxygen Sat 95.4 mmHG (95.0-100.0); Arterial COHb 0.1 % (0.0-3.0); Arterial HCO3 26.8 mmol/L (22.0-26.0); Arterial MetHb 0.3 % (0.0-1.5); Arterial Total Hemglobin 9.6 g/dl (12.0-18.0); Arterial pCO2 33.4 mmhg (35-45)
[2017-09-14] MEDS: MAGNESIUM SULFATE 2 GM/50 ML 50 ML IVPB (09:15)
[2017-09-14] MEDS: MEROPENEM 1 GM/50ML(PMX) 50 ML IVPB (09:15)
[2017-09-14] MEDS: POTASSIUM CHLORIDE 20 MEQ POWDER FOR ORAL SOLN NGT (09:15)
[2017-09-14] MEDS: BALSAM PERU/CASTOR OIL 60 GM TUBE TOP ×2 (09:16→21:03)
[2017-09-14] MEDS: CLOPIDOGREL 75 MG TAB PO (09:16)
[2017-09-14] MEDS: SPIRONOLACTONE 25 MG TAB NGT (09:16)
[2017-09-14] MEDS: ENOXAPARIN 80 MG/0.8 ML SYG SC (09:16)
[2017-09-14] MEDS: METOPROLOL 25 MG TAB PO ×2 (09:17→21:02)
[2017-09-14] MEDS: AMIODARONE 200 MG TAB PO ×3 (09:17→21:02)
[2017-09-14] MEDS: FAMOTIDINE 20 MG INJ IV (09:18)
[2017-09-14] MEDS: VANCOMYCIN 1.25 GM in SOD CHLORIDE 0.9% 250 ML IVPB (09:21)
[2017-09-14] MEDS: ATORVASTATIN 10 MG TAB PO (21:02)
[2017-09-15 04:58] LABS: ADD MAN DIFF? NO
[2017-09-15 05:14] LABS: BASOPHILS % 0.3 % (0.0-2.0); EOSINOPHILS # 0.8 10^3/ul (0.0-0.5); EOSINOPHILS % 7.8 % (0.0-7.0); HEMATOCRIT 24.8 % (42.0-52.0); HEMOGLOBIN 7.7 g/dl (14.0-18.0); LYMPHOCYTES # 1.3 10^3/ul (0.8-2.9); LYMPHOCYTES % 12.4 % (15.0-51.0); MEAN CORPUSCULAR HEMOGLOBIN 29.6 pg (29.0-33.0); MEAN CORPUSCULAR VOLUME 95.4 fl (82.0-101.0); MEAN PLATELET VOLUME 9.9 fl (7.4-10.4); MONOCYTE # 0.6 10^3/ul (0.3-0.9); NEUTROPHIL # 7.7 10^3/ul (1.6-7.5); NEUTROPHILS % 72.5 % (39.0-77.0); PLATELET COUNT 427 10^3/UL (140-415)
[2017-09-15 05:14] LABS: WHITE BLOOD COUNT 10.6 10^3/ul (4.8-10.8)
[2017-09-15 05:36] LABS: ALANINE AMINOTRANSFERASE 25 IU/L (13-69); ALBUMIN/GLOBULIN RATIO 0.68; ALKALINE PHOSPHATASE 118 IU/L (42-121); ANION GAP 9 (8-16); ASPARTATE AMINO TRANSFERASE 32 IU/L (15-46); BLOOD UREA NITROGEN 43 mg/dl (7-20); CALCIUM 7.4 mg/dl (8.4-10.2); CARBON DIOXIDE 32 mmol/L (21-31); CHLORIDE 109 mmol/L (97-110); CREATININE 1.61 mg/dl (0.61-1.24); GLUCOSE 107 mg/dl (70-220); POTASSIUM 3.1 mmol/L (3.5-5.1); SODIUM 147 mmol/L (135-144); TOTAL PROTEIN 4.9 g/dl (6.1-8.1)
[2017-09-15 05:46] LABS: PHOSPHORUS 3.2 mg/dl (2.5-4.9)
[2017-09-15] MEDS: LANSOPRAZOLE 30 MG CAP GTB (05:50)
[2017-09-15] MEDS: metroNIDAZOLE 500 MG/NS (PMX) 100 ML IVPB ×3 (05:50→22:23)
[2017-09-15] MEDS: FUROSEMIDE 40 MG INJ IV ×2 (05:50→17:29)
[2017-09-15] MEDS: POTASSIUM CHLORIDE 20 MEQ POWDER FOR ORAL SOLN NGT (08:31)
[2017-09-15] MEDS: METOLAZONE 5 MG TAB PO (08:32)
[2017-09-15] MEDS: AMIODARONE 200 MG TAB PO ×3 (08:32→20:57)
[2017-09-15] MEDS: CLOPIDOGREL 75 MG TAB PO (08:32)
[2017-09-15] MEDS: ENOXAPARIN 80 MG/0.8 ML SYG SC (08:33)
[2017-09-15] MEDS: BALSAM PERU/CASTOR OIL 60 GM TUBE TOP ×2 (08:36→21:00)
[2017-09-15] MEDS: METOPROLOL 25 MG TAB PO ×2 (09:48→21:00)
[2017-09-15] MEDS: SPIRONOLACTONE 25 MG TAB NGT (09:48)
[2017-09-15 14:32] LABS: ANION GAP 10 (8-16); BLOOD UREA NITROGEN 42 mg/dl (7-20); CALCIUM 7.2 mg/dl (8.4-10.2); CARBON DIOXIDE 31 mmol/L (21-31); CHLORIDE 108 mmol/L (97-110); CREATININE 1.56 mg/dl (0.61-1.24); GLUCOSE 91 mg/dl (70-220); POTASSIUM 3.8 mmol/L (3.5-5.1); SODIUM 145 mmol/L (135-144)
[2017-09-15] MEDS: ATORVASTATIN 10 MG TAB PO (20:57)
[2017-09-16] MEDS: ACETAMINOPHEN 325 MG TAB PO (00:24)
[2017-09-16 05:14] LABS: ADD MAN DIFF? NO
[2017-09-16 05:18] LABS: WHITE BLOOD COUNT 11.4 10^3/ul (4.8-10.8)
[2017-09-16 05:18] LABS: BASOPHILS % 0.3 % (0.0-2.0); EOSINOPHILS # 0.8 10^3/ul (0.0-0.5); EOSINOPHILS % 6.6 % (0.0-7.0); HEMATOCRIT 24.1 % (42.0-52.0); HEMOGLOBIN 7.6 g/dl (14.0-18.0); LYMPHOCYTES # 1.6 10^3/ul (0.8-2.9); LYMPHOCYTES % 13.7 % (15.0-51.0); MEAN CORPUSCULAR HEMOGLOBIN 29.5 pg (29.0-33.0); MEAN CORPUSCULAR HGB CONC 31.5 g/dl (32.0-37.0); MEAN CORPUSCULAR VOLUME 93.4 fl (82.0-101.0); MEAN PLATELET VOLUME 9.7 fl (7.4-10.4); MONOCYTE # 0.7 10^3/ul (0.3-0.9); MONOCYTES % 5.8 % (0.0-11.0); NEUTROPHIL # 8.3 10^3/ul (1.6-7.5); NEUTROPHILS % 72.7 % (39.0-77.0); PLATELET COUNT 396 10^3/UL (140-415); RED BLOOD COUNT 2.58 10^6/ul (4.70-6.10); RED CELL DISTRIBUTION WIDTH 14.9 % (11.5-14.5)
[2017-09-16 06:09] LABS: ANION GAP 10 (8-16); BLOOD UREA NITROGEN 41 mg/dl (7-20); CALCIUM 7.2 mg/dl (8.4-10.2); CARBON DIOXIDE 32 mmol/L (21-31); CHLORIDE 106 mmol/L (97-110); CREATININE 1.57 mg/dl (0.61-1.24); GLUCOSE 106 mg/dl (70-220); MAGNESIUM 1.9 mg/dl (1.7-2.5); PHOSPHORUS 3.5 mg/dl (2.5-4.9); POTASSIUM 3.5 mmol/L (3.5-5.1); SODIUM 144 mmol/L (135-144)
[2017-09-16] MEDS: metroNIDAZOLE 500 MG/NS (PMX) 100 ML IVPB ×3 (06:18→21:52)
[2017-09-16] MEDS: FUROSEMIDE 40 MG INJ IV ×3 (06:19→21:52)
[2017-09-16] MEDS: LANSOPRAZOLE 30 MG CAP GTB (06:19)
[2017-09-16] MEDS: AMIODARONE 200 MG TAB PO ×3 (08:42→20:37)
[2017-09-16] MEDS: CLOPIDOGREL 75 MG TAB PO (08:42)
[2017-09-16] MEDS: SPIRONOLACTONE 25 MG TAB NGT (08:42)
[2017-09-16] MEDS: BALSAM PERU/CASTOR OIL 60 GM TUBE TOP ×2 (08:50→20:44)
[2017-09-16] MEDS: ENOXAPARIN 80 MG/0.8 ML SYG SC (08:50)
[2017-09-16] MEDS: METOPROLOL 25 MG TAB PO ×2 (09:49→20:37)
[2017-09-16] MEDS: ATORVASTATIN 10 MG TAB PO (20:37)
[2017-09-17 04:46] LABS: ADD MAN DIFF? NO
[2017-09-17 04:55] LABS: BASOPHIL # 0.1 10^3/ul (0.0-0.1); BASOPHILS % 0.4 % (0.0-2.0); EOSINOPHILS # 0.7 10^3/ul (0.0-0.5); EOSINOPHILS % 4.9 % (0.0-7.0); HEMATOCRIT 24.9 % (42.0-52.0); HEMOGLOBIN 7.9 g/dl (14.0-18.0); LYMPHOCYTES # 1.7 10^3/ul (0.8-2.9); LYMPHOCYTES % 12.7 % (15.0-51.0); MEAN CORPUSCULAR HEMOGLOBIN 29.6 pg (29.0-33.0); MEAN CORPUSCULAR HGB CONC 31.7 g/dl (32.0-37.0); MEAN CORPUSCULAR VOLUME 93.3 fl (82.0-101.0); MEAN PLATELET VOLUME 10.2 fl (7.4-10.4); MONOCYTE # 0.7 10^3/ul (0.3-0.9); MONOCYTES % 5.4 % (0.0-11.0); NEUTROPHIL # 10.4 10^3/ul (1.6-7.5); NEUTROPHILS % 75.9 % (39.0-77.0); PLATELET COUNT 405 10^3/UL (140-415); RED BLOOD COUNT 2.67 10^6/ul (4.70-6.10); RED CELL DISTRIBUTION WIDTH 14.7 % (11.5-14.5)
[2017-09-17 04:55] LABS: WHITE BLOOD COUNT 13.7 10^3/ul (4.8-10.8)
[2017-09-17 05:15] LABS: ALANINE AMINOTRANSFERASE 26 IU/L (13-69); ALBUMIN/GLOBULIN RATIO 0.66; ALKALINE PHOSPHATASE 98 IU/L (42-121); ANION GAP 10 (8-16); ASPARTATE AMINO TRANSFERASE 32 IU/L (15-46); BILIRUBIN,INDIRECT 0.1 mg/dl (0-1.1); BILIRUBIN,TOTAL 0.1 mg/dl (0.2-1.3); BLOOD UREA NITROGEN 41 mg/dl (7-20); CALCIUM 7.4 mg/dl (8.4-10.2); CARBON DIOXIDE 36 mmol/L (21-31); CHLORIDE 100 mmol/L (97-110); GLUCOSE 106 mg/dl (70-220); MAGNESIUM 1.8 mg/dl (1.7-2.5); PHOSPHORUS 3.9 mg/dl (2.5-4.9); POTASSIUM 3.7 mmol/L (3.5-5.1); SODIUM 142 mmol/L (135-144)
[2017-09-17] MEDS: metroNIDAZOLE 500 MG/NS (PMX) 100 ML IVPB ×3 (05:25→21:56)
[2017-09-17] MEDS: FUROSEMIDE 40 MG INJ IV ×3 (05:25→21:55)
[2017-09-17] MEDS: LANSOPRAZOLE 30 MG CAP GTB (05:25)
[2017-09-17 06:24] LABS: AADO2 Arterial 170.8 mmHg (7.0-24.0); Allen Test ACCEPTAB; Arterial Base Excess 9.5 mmol/L (-3.0-3); Arterial Blood Gas Oxygen Sat 93.9 mmHG (95.0-100.0); Arterial COHb 0.3 % (0.0-3.0); Arterial Fraction of Oxyhgb 93.5 % (93.0-99.0); Arterial HCO3 32.7 mmol/L (22.0-26.0); Arterial MetHb 0.1 % (0.0-1.5); Arterial Total Hemglobin 8.9 g/dl (12.0-18.0); Arterial pCO2 38.7 mmhg (35-45); MODE VENT - AC; Site Right Radial
[2017-09-17] MEDS: ENOXAPARIN 80 MG/0.8 ML SYG SC (09:40)
[2017-09-17] MEDS: SPIRONOLACTONE 25 MG TAB NGT (09:40)
[2017-09-17] MEDS: AMIODARONE 200 MG TAB PO ×3 (09:41→20:46)
[2017-09-17] MEDS: CLOPIDOGREL 75 MG TAB PO (09:41)
[2017-09-17] MEDS: METOPROLOL 25 MG TAB PO ×2 (09:41→20:46)
[2017-09-17] MEDS: BALSAM PERU/CASTOR OIL 60 GM TUBE TOP ×2 (09:42→20:45)
[2017-09-17] MEDS: METOLAZONE 5 MG TAB PO (15:22)
[2017-09-17] MEDS: ATORVASTATIN 10 MG TAB PO (20:45)
[2017-09-17] MEDS: ACETAMINOPHEN 325 MG TAB PO (21:56)
[2017-09-17] MEDS: ZOLPIDEM 5 MG TAB PO (21:56)
[2017-09-18] MEDS: LORAZEPAM 2 MG INJ IV (00:30)
[2017-09-18 06:00] LABS: ADD MAN DIFF? NO
[2017-09-18 06:05] LABS: BASOPHILS % 0.2 % (0.0-2.0); EOSINOPHILS # 0.4 10^3/ul (0.0-0.5); EOSINOPHILS % 2.2 % (0.0-7.0); HEMATOCRIT 24.5 % (42.0-52.0); HEMOGLOBIN 7.7 g/dl (14.0-18.0); LYMPHOCYTES # 1.6 10^3/ul (0.8-2.9); LYMPHOCYTES % 8.9 % (15.0-51.0); MEAN CORPUSCULAR HEMOGLOBIN 29.1 pg (29.0-33.0); MEAN CORPUSCULAR HGB CONC 31.4 g/dl (32.0-37.0); MEAN CORPUSCULAR VOLUME 92.5 fl (82.0-101.0); MEAN PLATELET VOLUME 10.3 fl (7.4-10.4); MONOCYTE # 0.7 10^3/ul (0.3-0.9); NEUTROPHIL # 15.4 10^3/ul (1.6-7.5); NEUTROPHILS % 84.1 % (39.0-77.0); PLATELET COUNT 388 10^3/UL (140-415); RED BLOOD COUNT 2.65 10^6/ul (4.70-6.10); RED CELL DISTRIBUTION WIDTH 14.6 % (11.5-14.5)
[2017-09-18 06:05] LABS: WHITE BLOOD COUNT 18.3 10^3/ul (4.8-10.8)
[2017-09-18] MEDS: FUROSEMIDE 40 MG INJ IV (06:42)
[2017-09-18] MEDS: LANSOPRAZOLE 30 MG CAP GTB (06:42)
[2017-09-18] MEDS: metroNIDAZOLE 500 MG/NS (PMX) 100 ML IVPB ×3 (06:42→22:11)
[2017-09-18 06:50] LABS: ANION GAP 10 (8-16); BLOOD UREA NITROGEN 39 mg/dl (7-20); CALCIUM 7.3 mg/dl (8.4-10.2); CARBON DIOXIDE 37 mmol/L (21-31); CHLORIDE 96 mmol/L (97-110); CREATININE 1.63 mg/dl (0.61-1.24); GLUCOSE 115 mg/dl (70-220); POTASSIUM 3.2 mmol/L (3.5-5.1); SODIUM 140 mmol/L (135-144)
[2017-09-18] MEDS: METOPROLOL 25 MG TAB PO ×2 (09:00→20:54)
[2017-09-18] MEDS: SPIRONOLACTONE 25 MG TAB NGT (09:15)
[2017-09-18] MEDS: ENOXAPARIN 80 MG/0.8 ML SYG SC (09:15)
[2017-09-18] MEDS: POTASSIUM CHLORIDE 20 MEQ POWDER FOR ORAL SOLN NGT (09:15)
[2017-09-18] MEDS: ACETAZOLAMIDE 500 MG INJ IV ×2 (09:15→20:54)
[2017-09-18] MEDS: BALSAM PERU/CASTOR OIL 60 GM TUBE TOP ×2 (09:15→20:55)
[2017-09-18] MEDS: AMIODARONE 200 MG TAB PO ×3 (09:28→20:54)
[2017-09-18] MEDS ORDERED: VANCOMYCIN IV PER PHARMACY XX (11:00)
[2017-09-18] MEDS: BARIUM SULF 2% 450 ML BTL (BERRY SMOOTHIE) PO (11:00)
[2017-09-18] MEDS: VANCOMYCIN 1.25 GM in SOD CHLORIDE 0.9% 250 ML IVPB (14:40)
[2017-09-18] MEDS: MEROPENEM 500MG/50 ML (PMX) 50 ML IVPB ×2 (14:40→20:55)
[2017-09-18 15:45] LABS: ANION GAP 9 (8-16); BLOOD UREA NITROGEN 36 mg/dl (7-20); CALCIUM 7.6 mg/dl (8.4-10.2); CARBON DIOXIDE 38 mmol/L (21-31); CHLORIDE 97 mmol/L (97-110); CREATININE 1.76 mg/dl (0.61-1.24); GLUCOSE 128 mg/dl (70-220); POTASSIUM 4.1 mmol/L (3.5-5.1); SODIUM 140 mmol/L (135-144)
[2017-09-18] MEDS: ATORVASTATIN 10 MG TAB PO (20:54)
[2017-09-19] MEDS: LORAZEPAM 2 MG INJ IV (00:57)
[2017-09-19 05:02] LABS: ADD MAN DIFF? NO
[2017-09-19 05:18] LABS: BASOPHIL # 0.1 10^3/ul (0.0-0.1); BASOPHILS % 0.4 % (0.0-2.0); EOSINOPHILS # 0.9 10^3/ul (0.0-0.5); EOSINOPHILS % 4.8 % (0.0-7.0); HEMATOCRIT 25.2 % (42.0-52.0); HEMOGLOBIN 7.8 g/dl (14.0-18.0); LYMPHOCYTES # 1.6 10^3/ul (0.8-2.9); LYMPHOCYTES % 9.1 % (15.0-51.0); MEAN CORPUSCULAR HEMOGLOBIN 29.5 pg (29.0-33.0); MEAN CORPUSCULAR VOLUME 95.5 fl (82.0-101.0); MEAN PLATELET VOLUME 10.5 fl (7.4-10.4); MONOCYTES % 5.4 % (0.0-11.0); NEUTROPHIL # 14.1 10^3/ul (1.6-7.5); NEUTROPHILS % 79.6 % (39.0-77.0); PLATELET COUNT 380 10^3/UL (140-415); RED BLOOD COUNT 2.64 10^6/ul (4.70-6.10); RED CELL DISTRIBUTION WIDTH 14.4 % (11.5-14.5)
[2017-09-19 05:18] LABS: WHITE BLOOD COUNT 17.7 10^3/ul (4.8-10.8)
[2017-09-19 06:01] LABS: ANION GAP 10 (8-16); BLOOD UREA NITROGEN 35 mg/dl (7-20); CALCIUM 7.8 mg/dl (8.4-10.2); CARBON DIOXIDE 35 mmol/L (21-31); CHLORIDE 100 mmol/L (97-110); CREATININE 1.78 mg/dl (0.61-1.24); GLUCOSE 124 mg/dl (70-220); MAGNESIUM 1.9 mg/dl (1.7-2.5); PHOSPHORUS 4.5 mg/dl (2.5-4.9); POTASSIUM 3.6 mmol/L (3.5-5.1); SODIUM 141 mmol/L (135-144)
[2017-09-19] MEDS: metroNIDAZOLE 500 MG/NS (PMX) 100 ML IVPB ×3 (06:21→21:58)
[2017-09-19] MEDS: LANSOPRAZOLE 30 MG CAP GTB (06:21)
[2017-09-19] MEDS: METOPROLOL 25 MG TAB PO ×2 (08:50→20:45)
[2017-09-19] MEDS: MEROPENEM 500MG/50 ML (PMX) 50 ML IVPB ×2 (09:01→20:43)
[2017-09-19] MEDS: BALSAM PERU/CASTOR OIL 60 GM TUBE TOP ×2 (09:02→20:55)
[2017-09-19] MEDS: SPIRONOLACTONE 25 MG TAB NGT (09:02)
[2017-09-19] MEDS: AMIODARONE 200 MG TAB PO ×3 (09:02→20:44)
[2017-09-19] MEDS: ACETAZOLAMIDE 500 MG INJ IV ×2 (09:03→20:43)
[2017-09-19] MEDS: ENOXAPARIN 80 MG/0.8 ML SYG SC (09:06)
[2017-09-19 11:25] LABS: Allen Test ACCEPTAB; Arterial Base Excess 3.3 mmol/L (-3.0-3); Arterial Blood Gas Oxygen Sat 96.3 mmHG (95.0-100.0); Arterial COHb 0.3 % (0.0-3.0); Arterial Fraction of Oxyhgb 95.8 % (93.0-99.0); Arterial HCO3 27.6 mmol/L (22.0-26.0); Arterial MetHb 0.2 % (0.0-1.5); Arterial Total Hemglobin 8.3 g/dl (12.0-18.0); Arterial pCO2 40.6 mmhg (35-45); Blood Gas PS 10; MODE VENT - CPAP; Site Right Radial
[2017-09-19] MEDS: ATORVASTATIN 10 MG TAB PO (20:43)
[2017-09-20] MEDS: ZOLPIDEM 5 MG TAB PO (00:06)
[2017-09-20] MEDS: ACETAMINOPHEN 325 MG TAB PO (00:06)
[2017-09-20 05:42] LABS: ADD MAN DIFF? NO
[2017-09-20 05:49] LABS: BASOPHIL # 0.1 10^3/ul (0.0-0.1); BASOPHILS % 0.5 % (0.0-2.0); EOSINOPHILS # 0.7 10^3/ul (0.0-0.5); EOSINOPHILS % 4.8 % (0.0-7.0); HEMOGLOBIN 7.4 g/dl (14.0-18.0); LYMPHOCYTES # 1.2 10^3/ul (0.8-2.9); LYMPHOCYTES % 7.6 % (15.0-51.0); MEAN CORPUSCULAR HEMOGLOBIN 29.4 pg (29.0-33.0); MEAN CORPUSCULAR HGB CONC 30.8 g/dl (32.0-37.0); MEAN CORPUSCULAR VOLUME 95.2 fl (82.0-101.0); MEAN PLATELET VOLUME 10.3 fl (7.4-10.4); MONOCYTE # 0.7 10^3/ul (0.3-0.9); MONOCYTES % 4.6 % (0.0-11.0); NEUTROPHIL # 12.6 10^3/ul (1.6-7.5); PLATELET COUNT 386 10^3/UL (140-415); RED BLOOD COUNT 2.52 10^6/ul (4.70-6.10); RED CELL DISTRIBUTION WIDTH 14.3 % (11.5-14.5)
[2017-09-20 05:49] LABS: WHITE BLOOD COUNT 15.3 10^3/ul (4.8-10.8)
[2017-09-20 06:29] LABS: ANION GAP 11 (8-16); BLOOD UREA NITROGEN 30 mg/dl (7-20); CARBON DIOXIDE 28 mmol/L (21-31); CHLORIDE 105 mmol/L (97-110); CREATININE 1.67 mg/dl (0.61-1.24); GLUCOSE 99 mg/dl (70-220); PHOSPHORUS 4.3 mg/dl (2.5-4.9); POTASSIUM 3.1 mmol/L (3.5-5.1); SODIUM 141 mmol/L (135-144)
[2017-09-20] MEDS: LANSOPRAZOLE 30 MG CAP GTB (06:31)
[2017-09-20] MEDS: metroNIDAZOLE 500 MG/NS (PMX) 100 ML IVPB ×3 (06:31→21:26)
[2017-09-20] MEDS: MEROPENEM 500MG/50 ML (PMX) 50 ML IVPB ×2 (09:15→21:12)
[2017-09-20] MEDS: AMIODARONE 200 MG TAB PO ×3 (09:16→21:25)
[2017-09-20] MEDS: SPIRONOLACTONE 25 MG TAB NGT (09:16)
[2017-09-20] MEDS: BALSAM PERU/CASTOR OIL 60 GM TUBE TOP ×2 (09:17→21:25)
[2017-09-20] MEDS: ACETAZOLAMIDE 500 MG INJ IV ×2 (09:17→21:24)
[2017-09-20] MEDS: METOPROLOL 25 MG TAB PO ×2 (09:17→21:25)
[2017-09-20] MEDS: ENOXAPARIN 80 MG/0.8 ML SYG SC (09:37)
[2017-09-20] MEDS: POTASSIUM CHLORIDE 250 ML IVPB ×2 (09:44→14:34)
[2017-09-20] MEDS: VANCOMYCIN 1.25 GM in SOD CHLORIDE 0.9% 250 ML IVPB (14:34)
[2017-09-20] MEDS: LIDOCAINE 1% (MPF) 5 ML VIAL SC (16:30)
[2017-09-20] MEDS: SOD CHLORIDE 0.9% 100 ML (16:50)
[2017-09-20] MEDS: ALBUTEROL/IPRATROPIUM (NEB) 3 ML AMP HHN ×2 (18:18→20:45)
[2017-09-20] MEDS: ATORVASTATIN 10 MG TAB PO (21:25)
[2017-09-21] MEDS: ALBUTEROL/IPRATROPIUM (NEB) 3 ML AMP HHN (00:47)
[2017-09-21] MEDS: LORAZEPAM 2 MG INJ IV ×3 (01:15→23:40)
[2017-09-21 02:29] LABS: AADO2 Arterial 589.9 mmHg (7.0-24.0); Allen Test ACCEPTAB; Arterial Base Excess -4.4 mmol/L (-3.0-3); Arterial Blood Gas Oxygen Sat 93.7 mmHG (95.0-100.0); Arterial COHb 0.3 % (0.0-3.0); Arterial Fraction of Oxyhgb 93.2 % (93.0-99.0); Arterial HCO3 21.9 mmol/L (22.0-26.0); Arterial MetHb 0.2 % (0.0-1.5); Arterial Total Hemglobin 9.1 g/dl (12.0-18.0); Arterial pCO2 45.5 mmhg (35-45); MODE MASK - NRB; Site Right Radial
[2017-09-21 03:10] LABS: AADO2 Arterial 502.7 mmHg (7.0-24.0); Allen Test ACCEPTAB; Arterial Base Excess -2.6 mmol/L (-3.0-3); Arterial Blood Gas Oxygen Sat 98.7 mmHG (95.0-100.0); Arterial COHb 0.3 % (0.0-3.0); Arterial Fraction of Oxyhgb 98.1 % (93.0-99.0); Arterial HCO3 23.8 mmol/L (22.0-26.0); Arterial MetHb 0.3 % (0.0-1.5); Arterial Total Hemglobin 9.4 g/dl (12.0-18.0); Blood Gas IEPAP 18/5; Blood Gas PS 13; MODE MASK - BIPAP; Site Right Radial
[2017-09-21] MEDS: ACETAMINOPHEN 325 MG TAB PO ×2 (04:46→23:47)
[2017-09-21 05:04] LABS: AADO2 Arterial 433.9 mmHg (7.0-24.0); Allen Test ACCEPTAB; Arterial Base Excess -5.6 mmol/L (-3.0-3); Arterial Blood Gas Oxygen Sat 99.2 mmHG (95.0-100.0); Arterial COHb 0.3 % (0.0-3.0); Arterial Fraction of Oxyhgb 98.5 % (93.0-99.0); Arterial HCO3 23.3 mmol/L (22.0-26.0); Arterial MetHb 0.4 % (0.0-1.5); Arterial Total Hemglobin 9.5 g/dl (12.0-18.0); Arterial pCO2 65.7 mmhg (35-45); MODE VENT - AC; Site Right Radial
[2017-09-21] MEDS: LANSOPRAZOLE 30 MG CAP GTB (06:19)
[2017-09-21] MEDS: metroNIDAZOLE 500 MG/NS (PMX) 100 ML IVPB ×3 (06:19→22:04)
[2017-09-21 06:26] LABS: ADD MAN DIFF? NO
[2017-09-21] MEDS: DEXTROSE 5%-0.45% NACL 1,000 ML IV (06:28)
[2017-09-21 06:31] LABS: ABNORMAL IP MESSAGE 1; BASOPHIL # 0.1 10^3/ul (0.0-0.1); BASOPHILS % 0.4 % (0.0-2.0); EOSINOPHILS # 0.5 10^3/ul (0.0-0.5); EOSINOPHILS % 2.3 % (0.0-7.0); HEMOGLOBIN 8.3 g/dl (14.0-18.0); LYMPHOCYTES # 1.1 10^3/ul (0.8-2.9); LYMPHOCYTES % 4.5 % (15.0-51.0); MEAN CORPUSCULAR HEMOGLOBIN 29.1 pg (29.0-33.0); MEAN CORPUSCULAR HGB CONC 29.6 g/dl (32.0-37.0); MEAN CORPUSCULAR VOLUME 98.2 fl (82.0-101.0); MONOCYTE # 1.2 10^3/ul (0.3-0.9); NEUTROPHIL # 20.4 10^3/ul (1.6-7.5); NEUTROPHILS % 86.9 % (39.0-77.0); PLATELET COUNT 488 10^3/UL (140-415); POSITIVE DIFF @See below; RED BLOOD COUNT 2.85 10^6/ul (4.70-6.10); RED CELL DISTRIBUTION WIDTH 14.1 % (11.5-14.5)
[2017-09-21 06:31] LABS: WHITE BLOOD COUNT 23.4 10^3/ul (4.8-10.8)
[2017-09-21 06:55] LABS: ANION GAP 10 (8-16); BLOOD UREA NITROGEN 28 mg/dl (7-20); CALCIUM 8.1 mg/dl (8.4-10.2); CARBON DIOXIDE 27 mmol/L (21-31); CHLORIDE 110 mmol/L (97-110); CREATININE 1.72 mg/dl (0.61-1.24); GLUCOSE 149 mg/dl (70-220); MAGNESIUM 2.1 mg/dl (1.7-2.5); PHOSPHORUS 5.3 mg/dl (2.5-4.9); POTASSIUM 4.4 mmol/L (3.5-5.1); SODIUM 143 mmol/L (135-144)
[2017-09-21] MEDS ORDERED: ETOMIDATE 20 MG INJ (07:00)
[2017-09-21] MEDS ORDERED: ROCURONIUM 50 MG INJ ×2 (07:00)
[2017-09-21 08:26] LABS: AADO2 Arterial 418.1 mmHg (7.0-24.0); Allen Test ACCEPTAB; Arterial Base Excess -4.8 mmol/L (-3.0-3); Arterial Blood Gas Oxygen Sat 98.3 mmHG (95.0-100.0); Arterial COHb 0.3 % (0.0-3.0); Arterial Fraction of Oxyhgb 97.9 % (93.0-99.0); Arterial HCO3 22.6 mmol/L (22.0-26.0); Arterial MetHb 0.1 % (0.0-1.5); Arterial Total Hemglobin 8.8 g/dl (12.0-18.0); Arterial pCO2 54.1 mmhg (35-45); MODE VENT - AC; Site Right Radial
[2017-09-21] MEDS: ALBUMIN HUMAN 5% 250 ML IV (08:53)
[2017-09-21] MEDS: METOPROLOL 25 MG TAB PO ×2 (09:00→21:00)
[2017-09-21] MEDS: SPIRONOLACTONE 25 MG TAB NGT (09:01)
[2017-09-21] MEDS: AMIODARONE 200 MG TAB PO ×3 (09:02→21:22)
[2017-09-21] MEDS: ENOXAPARIN 80 MG/0.8 ML SYG SC (09:03)
[2017-09-21] MEDS: BALSAM PERU/CASTOR OIL 60 GM TUBE TOP ×2 (09:04→21:21)
[2017-09-21] MEDS: MEROPENEM 500MG/50 ML (PMX) 50 ML IVPB (11:49)
[2017-09-21] MEDS: LEVETIRACETAM 500 MG (PMX) 100 ML IVPB (12:37)
[2017-09-21] MEDS: ALBUMIN HUMAN 25% 100 ML IV ×2 (13:10→20:28)
[2017-09-21] MEDS: PIPER-TAZO 3.375 GM IV (PMX) 50 ML IVPB ×2 (13:25→21:31)
[2017-09-21] MEDS ORDERED: FENTAnyl (DRIP) 1000 mcg/100mL 100 ML IV (13:44)
[2017-09-21] MEDS: FENTAnyl (DRIP) 1000 mcg/100mL 100 ML IV (14:01)
[2017-09-21] MEDS: FUROSEMIDE 40 MG INJ IV (19:48)
[2017-09-21] MEDS: ATORVASTATIN 10 MG TAB PO (21:22)
[2017-09-22] MEDS: FENTAnyl (DRIP) 1000 mcg/100mL 100 ML IV (04:26)
[2017-09-22] MEDS: ALBUMIN HUMAN 25% 100 ML IV (04:27)
[2017-09-22 05:59] LABS: ANION GAP 13 (8-16); BLOOD UREA NITROGEN 29 mg/dl (7-20); CALCIUM 8.3 mg/dl (8.4-10.2); CARBON DIOXIDE 28 mmol/L (21-31); CHLORIDE 108 mmol/L (97-110); CREATININE 1.72 mg/dl (0.61-1.24); GLUCOSE 135 mg/dl (70-220); MAGNESIUM 1.9 mg/dl (1.7-2.5); PHOSPHORUS 3.2 mg/dl (2.5-4.9); POTASSIUM 4.1 mmol/L (3.5-5.1); SODIUM 145 mmol/L (135-144)
[2017-09-22] MEDS: LANSOPRAZOLE 30 MG CAP GTB (06:04)
[2017-09-22] MEDS: PIPER-TAZO 3.375 GM IV (PMX) 50 ML IVPB ×3 (06:04→21:39)
[2017-09-22] MEDS: FUROSEMIDE 40 MG INJ IV ×4 (06:05→17:56)
[2017-09-22] MEDS: ACETAMINOPHEN 325 MG TAB PO (06:11)
[2017-09-22] MEDS: LORAZEPAM 2 MG INJ IV ×2 (06:22→22:23)
[2017-09-22] MEDS: metroNIDAZOLE 500 MG/NS (PMX) 100 ML IVPB ×3 (06:44→21:39)
[2017-09-22 07:50] LABS: WHITE BLOOD COUNT 14.7 10^3/ul (4.8-10.8)
[2017-09-22 07:50] LABS: ABNORMAL IP MESSAGE 1; HEMATOCRIT 20.9 % (42.0-52.0); MEAN CORPUSCULAR HEMOGLOBIN 29.2 pg (29.0-33.0); MEAN CORPUSCULAR HGB CONC 29.7 g/dl (32.0-37.0); MEAN CORPUSCULAR VOLUME 98.6 fl (82.0-101.0); MEAN PLATELET VOLUME 9.7 fl (7.4-10.4); PLATELET COUNT 274 10^3/UL (140-415); POSITIVE DIFF @See below; RED BLOOD COUNT 2.12 10^6/ul (4.70-6.10)
[2017-09-22 08:13] LABS: HEMOGLOBIN 6.2 g/dl (14.0-18.0)
[2017-09-22 08:14] LABS: ADD MAN DIFF? YES
[2017-09-22 08:40] LABS: Arterial Base Excess -3.5 mmol/L (-3.0-3); Arterial Blood Gas Oxygen Sat 92.5 mmHG (95.0-100.0); Arterial COHb 0.8 % (0.0-3.0); Arterial Fraction of Oxyhgb 91.6 % (93.0-99.0); Arterial HCO3 23.1 mmol/L (22.0-26.0); Arterial MetHb 0.2 % (0.0-1.5); Arterial Total Hemglobin 8.4 g/dl (12.0-18.0); Arterial pCO2 49.4 mmhg (35-45); MODE VENT-AC; Site Right Brachial
[2017-09-22] MEDS: SOD CHLORIDE 0.9% 250 ML IV* (08:41)
[2017-09-22] MEDS: BALSAM PERU/CASTOR OIL 60 GM TUBE TOP ×2 (09:00→21:42)
[2017-09-22 09:43] LABS: ANISOCYTOSIS 1+ (0-0); BAND NEUTROPHILS #M 0.1 10^3/ul (0.0-0.6); BAND NEUTROPHILS % (M) 1 % (0-4); EOSINOPHILS % (M) 11 % (0-7); LYMPHOCYTES #M 1.3 10^3/ul (0.8-2.9); LYMPHOCYTES % (M) 9 % (15-51); MICROCYTOSIS 1+ (0-0); PLATELET ESTIMATE NORMAL; POLYCHROMASIA 3+ (0-0); SEG NEUT #M 11.6 10^3/ul (1.7-7.5); SEGMENTED NEUTROPHILS (M) % 79 % (39-77); SMUDGE%M 1 % (0-0)
[2017-09-22] MEDS: NA BICARBONATE 8.4% 50 ML SYG IV (09:56)
[2017-09-22] MEDS: ENOXAPARIN 80 MG/0.8 ML SYG SC (10:17)
[2017-09-22 10:44] LABS: IMMEDIATE SPIN CROSSMATCH 1 3
[2017-09-22] MEDS: SPIRONOLACTONE 25 MG TAB NGT (11:13)
[2017-09-22] MEDS: AMIODARONE 200 MG TAB PO ×3 (11:13→21:40)
[2017-09-22] MEDS: METOPROLOL 25 MG TAB PO ×2 (11:14→21:40)
[2017-09-22] MEDS: NA BICARBONATE 650 MG TAB PO ×2 (13:10→21:39)
[2017-09-22] MEDS ORDERED: NORepinephrine 8MG/250 ML (PMX 250 ML (13:45)
[2017-09-22 14:05] LABS: VANCOMYCIN,TROUGH 9.7 ug/ml (10.0-20.0)
[2017-09-22 17:13] LABS: HEMATOCRIT 28.4 % (42.0-52.0); HEMOGLOBIN 8.9 g/dl (14.0-18.0)
[2017-09-22] MEDS: ATORVASTATIN 10 MG TAB PO (21:40)
[2017-09-23] MEDS: FENTAnyl (DRIP) 1000 mcg/100mL 100 ML IV ×2 (02:28→22:47)
[2017-09-23 05:33] LABS: ADD MAN DIFF? NO
[2017-09-23 05:45] LABS: BASOPHIL # 0.1 10^3/ul (0.0-0.1); BASOPHILS % 0.5 % (0.0-2.0); EOSINOPHILS # 0.7 10^3/ul (0.0-0.5); EOSINOPHILS % 3.5 % (0.0-7.0); HEMOGLOBIN 9.5 g/dl (14.0-18.0); LYMPHOCYTES # 1.2 10^3/ul (0.8-2.9); MEAN CORPUSCULAR HEMOGLOBIN 29.3 pg (29.0-33.0); MEAN CORPUSCULAR HGB CONC 31.7 g/dl (32.0-37.0); MEAN CORPUSCULAR VOLUME 92.6 fl (82.0-101.0); MEAN PLATELET VOLUME 10.2 fl (7.4-10.4); MONOCYTE # 0.8 10^3/ul (0.3-0.9); MONOCYTES % 4.1 % (0.0-11.0); NEUTROPHIL # 16.4 10^3/ul (1.6-7.5); PLATELET COUNT 368 10^3/UL (140-415); RED BLOOD COUNT 3.24 10^6/ul (4.70-6.10); RED CELL DISTRIBUTION WIDTH 15.3 % (11.5-14.5)
[2017-09-23 05:45] LABS: WHITE BLOOD COUNT 19.3 10^3/ul (4.8-10.8)
[2017-09-23] MEDS: FUROSEMIDE 40 MG INJ IV (05:49)
[2017-09-23] MEDS: metroNIDAZOLE 500 MG/NS (PMX) 100 ML IVPB ×3 (05:49→21:19)
[2017-09-23] MEDS: PIPER-TAZO 3.375 GM IV (PMX) 50 ML IVPB ×3 (05:49→21:19)
[2017-09-23] MEDS: LANSOPRAZOLE 30 MG CAP GTB (05:50)
[2017-09-23 06:21] LABS: ANION GAP 15 (8-16); BLOOD UREA NITROGEN 35 mg/dl (7-20); CALCIUM 8.2 mg/dl (8.4-10.2); CARBON DIOXIDE 30 mmol/L (21-31); CHLORIDE 106 mmol/L (97-110); CREATININE 1.76 mg/dl (0.61-1.24); GLUCOSE 141 mg/dl (70-220); MAGNESIUM 1.7 mg/dl (1.7-2.5); PHOSPHORUS 3.2 mg/dl (2.5-4.9); POTASSIUM 4.5 mmol/L (3.5-5.1); SODIUM 146 mmol/L (135-144)
[2017-09-23] MEDS: NA PHOSPHATE/BIPHOS 133 ML ENEMA PR (08:06)
[2017-09-23] MEDS: NA BICARBONATE 650 MG TAB PO ×3 (08:07→21:19)
[2017-09-23] MEDS: SPIRONOLACTONE 25 MG TAB NGT (08:07)
[2017-09-23] MEDS: METOPROLOL 25 MG TAB PO (08:08)
[2017-09-23] MEDS: ENOXAPARIN 80 MG/0.8 ML SYG SC (08:09)
[2017-09-23] MEDS: AMIODARONE 200 MG TAB PO ×3 (08:09→21:19)
[2017-09-23] MEDS: BALSAM PERU/CASTOR OIL 60 GM TUBE TOP ×2 (08:09→21:20)
[2017-09-23 09:10] LABS: AADO2 Arterial 455.7 mmHg (7.0-24.0); Allen Test ACCEPTAB; Arterial Base Excess -1.8 mmol/L (-3.0-3); Arterial Blood Gas Oxygen Sat 89.6 mmHG (95.0-100.0); Arterial COHb 0.3 % (0.0-3.0); Arterial Fraction of Oxyhgb 89.2 % (93.0-99.0); Arterial HCO3 25.1 mmol/L (22.0-26.0); Arterial MetHb 0.1 % (0.0-1.5); Arterial Total Hemglobin 10.6 g/dl (12.0-18.0); Arterial pCO2 52.6 mmhg (35-45); MODE VENT - AC; Site Right Radial
[2017-09-23] MEDS: BUMETANIDE 25 MG in DEXTROSE 5% 150 ML IV (11:36)
[2017-09-23] MEDS: MAGNESIUM SULFATE 2 GM/50 ML 50 ML IVPB (13:22)
[2017-09-23] MEDS: ATORVASTATIN 10 MG TAB PO (21:18)
[2017-09-24] MEDS: DILTIAZEM 25 MG INJ IV (01:41)
[2017-09-24] MEDS: AMIODARONE 200 MG TAB PO (04:12)
[2017-09-24 04:54] LABS: AADO2 Arterial 479.3 mmHg (7.0-24.0); Allen Test ACCEPTAB; Arterial Base Excess 4.4 mmol/L (-3.0-3); Arterial Blood Gas Oxygen Sat 97.1 mmHG (95.0-100.0); Arterial COHb 0.1 % (0.0-3.0); Arterial Fraction of Oxyhgb 96.8 % (93.0-99.0); Arterial MetHb 0.2 % (0.0-1.5); Arterial Total Hemglobin 10.7 g/dl (12.0-18.0); Arterial pCO2 65.2 mmhg (35-45); MODE VENT - AC; Site Left Radial
[2017-09-24 05:21] LABS: ADD MAN DIFF? NO
[2017-09-24 05:30] LABS: WHITE BLOOD COUNT 14.2 10^3/ul (4.8-10.8)
[2017-09-24 05:30] LABS: ABNORMAL IP MESSAGE 1; BASOPHILS % 0.1 % (0.0-2.0); HEMATOCRIT 30.9 % (42.0-52.0); HEMOGLOBIN 9.7 g/dl (14.0-18.0); LYMPHOCYTES # 0.5 10^3/ul (0.8-2.9); LYMPHOCYTES % 3.2 % (15.0-51.0); MEAN CORPUSCULAR HEMOGLOBIN 29.6 pg (29.0-33.0); MEAN CORPUSCULAR HGB CONC 31.4 g/dl (32.0-37.0); MEAN CORPUSCULAR VOLUME 94.2 fl (82.0-101.0); MEAN PLATELET VOLUME 10.1 fl (7.4-10.4); MONOCYTE # 0.3 10^3/ul (0.3-0.9); NEUTROPHIL # 13.4 10^3/ul (1.6-7.5); NEUTROPHILS % 94.2 % (39.0-77.0); PLATELET COUNT 384 10^3/UL (140-415); POSITIVE DIFF @See below; RED BLOOD COUNT 3.28 10^6/ul (4.70-6.10)
[2017-09-24] MEDS: LANSOPRAZOLE 30 MG CAP GTB (05:48)
[2017-09-24] MEDS: PIPER-TAZO 3.375 GM IV (PMX) 50 ML IVPB (05:48)
[2017-09-24] MEDS: metroNIDAZOLE 500 MG/NS (PMX) 100 ML IVPB ×3 (05:48→21:48)
[2017-09-24 05:58] LABS: LACTIC ACID 1.8 mmol/L (0.5-2.0)
[2017-09-24 06:23] LABS: ANION GAP 14 (8-16); BLOOD UREA NITROGEN 45 mg/dl (7-20); CALCIUM 8.3 mg/dl (8.4-10.2); CARBON DIOXIDE 36 mmol/L (21-31); CHLORIDE 102 mmol/L (97-110); CREATININE 2.11 mg/dl (0.61-1.24); GLUCOSE 217 mg/dl (70-220); MAGNESIUM 2.1 mg/dl (1.7-2.5); POTASSIUM 3.1 mmol/L (3.5-5.1); SODIUM 149 mmol/L (135-144)
[2017-09-24] MEDS: BALSAM PERU/CASTOR OIL 60 GM TUBE TOP ×2 (09:00→20:52)
[2017-09-24] MEDS: AMIODARONE 150MG/D5W BOLUS 100 ML IV (09:15)
[2017-09-24] MEDS: AMIODARONE 900 MG in DEXTROSE 5% 482 ML IV (09:40)
[2017-09-24] MEDS: LORAZEPAM 2 MG INJ IV (09:59)
[2017-09-24] MEDS: ONDANSETRON 4 MG INJ IV (09:59)
[2017-09-24] MEDS: NA BICARBONATE 650 MG TAB PO ×3 (10:00→20:52)
[2017-09-24] MEDS: SPIRONOLACTONE 25 MG TAB NGT (10:00)
[2017-09-24] MEDS: ENOXAPARIN 80 MG/0.8 ML SYG SC (10:07)
[2017-09-24] MEDS: FENTAnyl (DRIP) 1000 mcg/100mL 100 ML IV (10:07)
[2017-09-24] MEDS: POTASSIUM CHLORIDE 250 ML IVPB ×2 (11:31→15:12)
[2017-09-24] MEDS: ACETAMINOPHEN 325 MG TAB PO ×2 (12:52→20:52)
[2017-09-24] MEDS: PIPER-TAZO 2.25 GM (PMX) 50 ML IVPB ×2 (15:11→20:51)
[2017-09-24 19:23] LABS: URIC ACID 7.4 mg/dl (3.1-7.9)
[2017-09-24 20:30] LABS: CREATINE KINASE 52 IU/L (23-200)
[2017-09-24 20:32] LABS: ALANINE AMINOTRANSFERASE 25 IU/L (13-69); ALBUMIN 2.8 g/dl (3.3-4.9); ALBUMIN/GLOBULIN RATIO 0.73; ALKALINE PHOSPHATASE 155 IU/L (42-121); ANION GAP 15 (8-16); ASPARTATE AMINO TRANSFERASE 33 IU/L (15-46); BLOOD UREA NITROGEN 54 mg/dl (7-20); CALCIUM 7.5 mg/dl (8.4-10.2); CARBON DIOXIDE 35 mmol/L (21-31); CHLORIDE 104 mmol/L (97-110); CREATININE 2.26 mg/dl (0.61-1.24); GLUCOSE 185 mg/dl (70-220); POTASSIUM 4.2 mmol/L (3.5-5.1); SODIUM 150 mmol/L (135-144); TOTAL PROTEIN 6.6 g/dl (6.1-8.1)
[2017-09-24 20:43] LABS: CK INDEX 0.5; TROPONIN-I 0.041 ng/ml (0.00-0.12)
[2017-09-24 20:52] LABS: CK-MB 0.28 ng/ml (0.0-2.4)
[2017-09-24] MEDS: ATORVASTATIN 10 MG TAB PO (20:52)
[2017-09-24 21:18] LABS: ALANINE AMINOTRANSFERASE 25 IU/L (13-69); ALBUMIN 2.7 g/dl (3.3-4.9); ALKALINE PHOSPHATASE 149 IU/L (42-121); ASPARTATE AMINO TRANSFERASE 39 IU/L (15-46); TOTAL PROTEIN 6.5 g/dl (6.1-8.1)
[2017-09-24 21:18] LABS: AMMONIA 20 umol/l (9-30)
[2017-09-24 22:20] LABS: % IRON SATURATION 9 % SAT (22-52)
[2017-09-24 22:36] LABS: IRON 15 ug/dl (35-150); TOTAL IRON BINDING CAPACITY 167 ug/dl (241-421)
[2017-09-25] MEDS: FUROSEMIDE 40 MG INJ IV ×2 (00:02→09:46)
[2017-09-25] MEDS: PIPER-TAZO 2.25 GM (PMX) 50 ML IVPB ×4 (00:02→18:32)
[2017-09-25] MEDS: EPOETIN 10000 UNITS/1 ML INJ (ESRD) SC (00:03)
[2017-09-25 05:21] LABS: AADO2 Arterial 305.7 mmHg (7.0-24.0); Allen Test ACCEPTAB; Arterial Base Excess 5.4 mmol/L (-3.0-3); Arterial Blood Gas Oxygen Sat 97.2 mmHG (95.0-100.0); Arterial COHb 0.1 % (0.0-3.0); Arterial Fraction of Oxyhgb 96.9 % (93.0-99.0); Arterial HCO3 35.6 mmol/L (22.0-26.0); Arterial MetHb 0.2 % (0.0-1.5); Arterial Total Hemglobin 12.5 g/dl (12.0-18.0); Arterial pCO2 86.1 mmhg (35-45); MODE VENT - AC; Site Right Radial
[2017-09-25] MEDS: FENTAnyl (DRIP) 1000 mcg/100mL 100 ML IV (06:22)
[2017-09-25 06:32] LABS: ADD MAN DIFF? NO
[2017-09-25 06:50] LABS: BASOPHILS % 0.1 % (0.0-2.0); EOSINOPHILS % 0.1 % (0.0-7.0); HEMATOCRIT 29.9 % (42.0-52.0); HEMOGLOBIN 9.1 g/dl (14.0-18.0); LYMPHOCYTES # 0.9 10^3/ul (0.8-2.9); LYMPHOCYTES % 6.4 % (15.0-51.0); MEAN CORPUSCULAR HEMOGLOBIN 29.3 pg (29.0-33.0); MEAN CORPUSCULAR HGB CONC 30.4 g/dl (32.0-37.0); MEAN CORPUSCULAR VOLUME 96.1 fl (82.0-101.0); MEAN PLATELET VOLUME 9.9 fl (7.4-10.4); MONOCYTES % 7.3 % (0.0-11.0); NEUTROPHIL # 11.7 10^3/ul (1.6-7.5); NEUTROPHILS % 85.4 % (39.0-77.0); PLATELET COUNT 327 10^3/UL (140-415); RED BLOOD COUNT 3.11 10^6/ul (4.70-6.10); RED CELL DISTRIBUTION WIDTH 14.9 % (11.5-14.5)
[2017-09-25 06:50] LABS: WHITE BLOOD COUNT 13.7 10^3/ul (4.8-10.8)
[2017-09-25 07:28] LABS: ANION GAP 16 (8-16); BLOOD UREA NITROGEN 60 mg/dl (7-20); CALCIUM 7.5 mg/dl (8.4-10.2); CARBON DIOXIDE 35 mmol/L (21-31); CHLORIDE 104 mmol/L (97-110); CREATININE 2.18 mg/dl (0.61-1.24); GLUCOSE 135 mg/dl (70-220); POTASSIUM 4.2 mmol/L (3.5-5.1); SODIUM 151 mmol/L (135-144)
[2017-09-25] MEDS: AMIODARONE 900 MG in DEXTROSE 5% 482 ML IV (08:07)
[2017-09-25] MEDS: INSULIN ASPART [NOVOLOG] 3 ML PEN SC ×4 (09:00→21:00)
[2017-09-25] MEDS: FAMOTIDINE 20 MG TAB NGT (09:48)
[2017-09-25] MEDS: ENOXAPARIN 80 MG/0.8 ML SYG SC (09:49)
[2017-09-25] MEDS: MIDAZOLAM (DRIP) 50 mg/50 mL 50 ML IV (09:53)
[2017-09-25] MEDS: BALSAM PERU/CASTOR OIL 60 GM TUBE TOP ×2 (10:17→21:00)
[2017-09-25] MEDS: ALBUTEROL HFA 8 GM INHALER INH ×3 (10:58→20:06)
[2017-09-25 10:59] LABS: AADO2 Arterial 348.4 mmHg (7.0-24.0); Allen Test ACCEPTAB; Arterial Base Excess 6.8 mmol/L (-3.0-3); Arterial Blood Gas Oxygen Sat 95.8 mmHG (95.0-100.0); Arterial COHb 0.3 % (0.0-3.0); Arterial Fraction of Oxyhgb 95.3 % (93.0-99.0); Arterial MetHb 0.2 % (0.0-1.5); Arterial Total Hemglobin 10.2 g/dl (12.0-18.0); Arterial pCO2 64.4 mmhg (35-45); MODE VENT - AC; Site Right Radial
[2017-09-25] MEDS: IPRATROPIUM (HFA) 12.9 GM INHALER INH ×3 (10:59→20:06)
[2017-09-25] MEDS: ACETYLCYSTEINE 20% 4 ML VIAL NEB ×3 (11:06→20:06)
[2017-09-25] MEDS: METOLAZONE 5 MG TAB PO (11:10)
[2017-09-26] MEDS: PIPER-TAZO 2.25 GM (PMX) 50 ML IVPB ×4 (00:28→20:44)
[2017-09-26] MEDS: MIDAZOLAM (DRIP) 50 mg/50 mL 50 ML IV (00:34)
[2017-09-26] MEDS: INSULIN ASPART [NOVOLOG] 3 ML PEN SC ×6 (00:46→20:44)
[2017-09-26] MEDS: IPRATROPIUM (HFA) 12.9 GM INHALER INH ×4 (01:45→19:44)
[2017-09-26] MEDS: ACETYLCYSTEINE 20% 4 ML VIAL NEB ×4 (01:45→19:45)
[2017-09-26] MEDS: ALBUTEROL HFA 8 GM INHALER INH ×4 (01:45→19:44)
[2017-09-26] MEDS: FENTAnyl (DRIP) 1000 mcg/100mL 100 ML IV (01:47)
[2017-09-26] MEDS: ACCU-CHEK XX (01:48)
[2017-09-26 05:40] LABS: ADD MAN DIFF? NO
[2017-09-26 06:03] LABS: WHITE BLOOD COUNT 10.8 10^3/ul (4.8-10.8)
[2017-09-26 06:03] LABS: BASOPHILS % 0.1 % (0.0-2.0); EOSINOPHILS # 0.4 10^3/ul (0.0-0.5); EOSINOPHILS % 3.3 % (0.0-7.0); HEMATOCRIT 27.4 % (42.0-52.0); HEMOGLOBIN 8.5 g/dl (14.0-18.0); LYMPHOCYTES # 1.1 10^3/ul (0.8-2.9); MEAN CORPUSCULAR HEMOGLOBIN 29.1 pg (29.0-33.0); MEAN CORPUSCULAR VOLUME 93.8 fl (82.0-101.0); MEAN PLATELET VOLUME 10.2 fl (7.4-10.4); MONOCYTE # 0.7 10^3/ul (0.3-0.9); MONOCYTES % 6.2 % (0.0-11.0); NEUTROPHIL # 8.6 10^3/ul (1.6-7.5); NEUTROPHILS % 79.5 % (39.0-77.0); NUCLEATED RED BLOOD CELLS% 0.2 /100WBC (0.0-0.0); PLATELET COUNT 284 10^3/UL (140-415); POSITIVE DIFF @See below; RED BLOOD COUNT 2.92 10^6/ul (4.70-6.10); RED CELL DISTRIBUTION WIDTH 14.7 % (11.5-14.5)
[2017-09-26 06:09] LABS: ALANINE AMINOTRANSFERASE 31 IU/L (13-69); ALBUMIN 2.7 g/dl (3.3-4.9); ALBUMIN/GLOBULIN RATIO 0.77; ALKALINE PHOSPHATASE 318 IU/L (42-121); ANION GAP 14 (8-16); ASPARTATE AMINO TRANSFERASE 47 IU/L (15-46); BLOOD UREA NITROGEN 67 mg/dl (7-20); CALCIUM 7.7 mg/dl (8.4-10.2); CARBON DIOXIDE 38 mmol/L (21-31); CHLORIDE 103 mmol/L (97-110); CREATININE 2.05 mg/dl (0.61-1.24); GLUCOSE 124 mg/dl (70-220); POTASSIUM 3.5 mmol/L (3.5-5.1); SODIUM 151 mmol/L (135-144); TOTAL PROTEIN 6.2 g/dl (6.1-8.1)
[2017-09-26 06:29] LABS: PHOSPHORUS 3.8 mg/dl (2.5-4.9)
[2017-09-26 07:53] LABS: AADO2 Arterial 367.9 mmHg (7.0-24.0); Allen Test ACCEPTAB; Arterial Base Excess 9.2 mmol/L (-3.0-3); Arterial Blood Gas Oxygen Sat 92.6 mmHG (95.0-100.0); Arterial COHb 0.1 % (0.0-3.0); Arterial Fraction of Oxyhgb 92.3 % (93.0-99.0); Arterial HCO3 36.1 mmol/L (22.0-26.0); Arterial MetHb 0.2 % (0.0-1.5); Arterial Total Hemglobin 12.8 g/dl (12.0-18.0); Arterial pCO2 59.7 mmhg (35-45); MODE VENT - AC; Site Right Radial
[2017-09-26] MEDS: POTASSIUM CHLORIDE (SR) 20 MEQ TAB PO (08:22)
[2017-09-26] MEDS: PROPOFOL 100 ML IV ×3 (08:30→20:52)
[2017-09-26] MEDS: SOD CHLORIDE 0.9% 250 ML IV* (08:34)
[2017-09-26] MEDS: BALSAM PERU/CASTOR OIL 60 GM TUBE TOP ×2 (09:00→20:44)
[2017-09-26] MEDS: FAMOTIDINE 20 MG TAB NGT (10:09)
[2017-09-26] MEDS: FUROSEMIDE 40 MG INJ IV ×2 (10:09→12:38)
[2017-09-26] MEDS: ENOXAPARIN 80 MG/0.8 ML SYG SC (10:11)
[2017-09-26 11:31] LABS: IMMEDIATE SPIN CROSSMATCH 1 2
[2017-09-26 12:22] LABS: AADO2 Arterial 607.4 mmHg (7.0-24.0); Allen Test ACCEPTAB; Arterial Base Excess 10.3 mmol/L (-3.0-3); Arterial Blood Gas Oxygen Sat 76.9 mmHG (95.0-100.0); Arterial COHb 0.3 % (0.0-3.0); Arterial Fraction of Oxyhgb 76.5 % (93.0-99.0); Arterial HCO3 37.2 mmol/L (22.0-26.0); Arterial MetHb 0.2 % (0.0-1.5); Arterial Total Hemglobin 10.6 g/dl (12.0-18.0); MODE AMBU BAG; Site Left Radial
[2017-09-26 15:38] LABS: ANION GAP 15 (8-16); BLOOD UREA NITROGEN 71 mg/dl (7-20); CARBON DIOXIDE 39 mmol/L (21-31); CHLORIDE 101 mmol/L (97-110); CREATININE 2.15 mg/dl (0.61-1.24); GLUCOSE 134 mg/dl (70-220); POTASSIUM 3.5 mmol/L (3.5-5.1); SODIUM 151 mmol/L (135-144)
[2017-09-26] MEDS: POTASSIUM CHLORIDE 20 MEQ POWDER FOR ORAL SOLN GTB (15:46)
[2017-09-26] MEDS: ACETAMINOPHEN 325 MG TAB PO (15:47)
[2017-09-27] MEDS: PIPER-TAZO 2.25 GM (PMX) 50 ML IVPB ×4 (00:19→17:49)
[2017-09-27] MEDS: INSULIN ASPART [NOVOLOG] 3 ML PEN SC ×6 (01:00→21:20)
[2017-09-27] MEDS: ACCU-CHEK XX (01:15)
[2017-09-27] MEDS: ALBUTEROL HFA 8 GM INHALER INH ×4 (01:50→19:26)
[2017-09-27] MEDS: ACETYLCYSTEINE 20% 4 ML VIAL NEB ×4 (01:50→19:26)
[2017-09-27] MEDS: IPRATROPIUM (HFA) 12.9 GM INHALER INH ×3 (01:50→14:38)
[2017-09-27 04:59] LABS: ADD MAN DIFF? NO
[2017-09-27 05:12] LABS: WHITE BLOOD COUNT 13.9 10^3/ul (4.8-10.8)
[2017-09-27 05:12] LABS: BASOPHILS % 0.3 % (0.0-2.0); EOSINOPHILS # 0.8 10^3/ul (0.0-0.5); EOSINOPHILS % 5.9 % (0.0-7.0); HEMATOCRIT 29.2 % (42.0-52.0); HEMOGLOBIN 9.4 g/dl (14.0-18.0); LYMPHOCYTES # 1.1 10^3/ul (0.8-2.9); LYMPHOCYTES % 7.6 % (15.0-51.0); MEAN CORPUSCULAR HEMOGLOBIN 29.4 pg (29.0-33.0); MEAN CORPUSCULAR HGB CONC 32.2 g/dl (32.0-37.0); MEAN CORPUSCULAR VOLUME 91.3 fl (82.0-101.0); MEAN PLATELET VOLUME 10.3 fl (7.4-10.4); MONOCYTE # 0.5 10^3/ul (0.3-0.9); MONOCYTES % 3.7 % (0.0-11.0); NEUTROPHIL # 11.3 10^3/ul (1.6-7.5); NEUTROPHILS % 81.2 % (39.0-77.0); PLATELET COUNT 261 10^3/UL (140-415)
[2017-09-27 05:21] LABS: MAGNESIUM 2.1 mg/dl (1.7-2.5)
[2017-09-27 05:26] LABS: ALANINE AMINOTRANSFERASE 34 IU/L (13-69); ALBUMIN 2.3 g/dl (3.3-4.9); ALBUMIN/GLOBULIN RATIO 0.67; ALKALINE PHOSPHATASE 325 IU/L (42-121); ANION GAP 16 (8-16); ASPARTATE AMINO TRANSFERASE 42 IU/L (15-46); BILIRUBIN,INDIRECT 0.2 mg/dl (0-1.1); BILIRUBIN,TOTAL 0.2 mg/dl (0.2-1.3); BLOOD UREA NITROGEN 69 mg/dl (7-20); CARBON DIOXIDE 38 mmol/L (21-31); CHLORIDE 104 mmol/L (97-110); GLUCOSE 114 mg/dl (70-220); PHOSPHORUS 3.4 mg/dl (2.5-4.9); POTASSIUM 3.8 mmol/L (3.5-5.1); SODIUM 154 mmol/L (135-144); TOTAL PROTEIN 5.7 g/dl (6.1-8.1)
[2017-09-27 08:28] LABS: AADO2 Arterial 374.5 mmHg (7.0-24.0); Allen Test ACCEPTAB; Arterial Base Excess 9.9 mmol/L (-3.0-3); Arterial COHb 0.3 % (0.0-3.0); Arterial Fraction of Oxyhgb 93.7 % (93.0-99.0); Arterial HCO3 34.9 mmol/L (22.0-26.0); Arterial MetHb 0 % (0.0-1.5); Arterial Total Hemglobin 10.8 g/dl (12.0-18.0); Arterial pCO2 49.2 mmhg (35-45); MODE VENT - AC; Site Right Radial
[2017-09-27] MEDS: FAMOTIDINE 20 MG TAB NGT (08:28)
[2017-09-27] MEDS: ENOXAPARIN 80 MG/0.8 ML SYG SC (08:29)
[2017-09-27] MEDS: FUROSEMIDE 40 MG INJ IV (08:29)
[2017-09-27] MEDS: ALBUMIN HUMAN 25% 100 ML IV ×2 (08:55→16:30)
[2017-09-27] MEDS: DEXTROSE 5% 1,000 ML IV (08:55)
[2017-09-27] MEDS: POTASSIUM BICARBONATE 25 MEQ TAB PO (10:03)
[2017-09-27] MEDS: BALSAM PERU/CASTOR OIL 60 GM TUBE TOP ×2 (10:03→21:26)
[2017-09-27] MEDS: ACETAZOLAMIDE 500 MG INJ IV (10:03)
[2017-09-27] MEDS: morphine 2 MG INJ IV (10:54)
[2017-09-27] MEDS: ACETAMINOPHEN 325 MG TAB PO (12:10)
[2017-09-27] MEDS: PROPOFOL 100 ML IV ×2 (13:17→20:47)
[2017-09-27 16:30] LABS: ANION GAP 16 (8-16); BLOOD UREA NITROGEN 66 mg/dl (7-20); CARBON DIOXIDE 36 mmol/L (21-31); CHLORIDE 101 mmol/L (97-110); CREATININE 2.04 mg/dl (0.61-1.24); GLUCOSE 131 mg/dl (70-220); POTASSIUM 3.6 mmol/L (3.5-5.1); SODIUM 149 mmol/L (135-144)
[2017-09-27] MEDS: METHYLPREDNISOLONE 125 MG INJ IV ×2 (16:30→21:27)
[2017-09-27] MEDS: POTASSIUM CHLORIDE 20 MEQ POWDER FOR ORAL SOLN NGT (17:49)
[2017-09-28] MEDS: PIPER-TAZO 2.25 GM (PMX) 50 ML IVPB ×5 (00:32→23:28)
[2017-09-28] MEDS: ALBUMIN HUMAN 25% 100 ML IV (00:33)
[2017-09-28] MEDS: INSULIN ASPART [NOVOLOG] 3 ML PEN SC ×6 (01:26→21:04)
[2017-09-28] MEDS: ACETYLCYSTEINE 20% 4 ML VIAL NEB ×5 (01:29→19:53)
[2017-09-28] MEDS: ALBUTEROL HFA 8 GM INHALER INH ×6 (01:29→19:53)
[2017-09-28] MEDS: ACCU-CHEK XX (02:00)
[2017-09-28] MEDS: METHYLPREDNISOLONE 125 MG INJ IV ×3 (05:13→21:31)
[2017-09-28 08:00] LABS: WHITE BLOOD COUNT 10.7 10^3/ul (4.8-10.8)
[2017-09-28 08:01] LABS: ABNORMAL IP MESSAGE 1; HEMOGLOBIN 8.5 g/dl (14.0-18.0); MEAN CORPUSCULAR HEMOGLOBIN 29.1 pg (29.0-33.0); MEAN CORPUSCULAR HGB CONC 30.4 g/dl (32.0-37.0); MEAN CORPUSCULAR VOLUME 95.9 fl (82.0-101.0); MEAN PLATELET VOLUME 10.8 fl (7.4-10.4); NUCLEATED RED BLOOD CELLS% 0.2 /100WBC (0.0-0.0); PLATELET COUNT 220 10^3/UL (140-415); POSITIVE DIFF @See below; RED BLOOD COUNT 2.92 10^6/ul (4.70-6.10); RED CELL DISTRIBUTION WIDTH 14.6 % (11.5-14.5)
[2017-09-28 08:04] LABS: ADD MAN DIFF? YES
[2017-09-28 08:09] LABS: ANION GAP 17 (8-16); CARBON DIOXIDE 38 mmol/L (21-31); CHLORIDE 99 mmol/L (97-110); GLUCOSE 138 mg/dl (70-220); POTASSIUM 3.8 mmol/L (3.5-5.1); SODIUM 150 mmol/L (135-144)
[2017-09-28 08:10] LABS: BLOOD UREA NITROGEN 64 mg/dl (7-20); CALCIUM 8.6 mg/dl (8.4-10.2); CREATININE 1.93 mg/dl (0.61-1.24); MAGNESIUM 2.2 mg/dl (1.7-2.5); PHOSPHORUS 5.6 mg/dl (2.5-4.9)
[2017-09-28] MEDS: FUROSEMIDE 40 MG INJ IV (08:10)
[2017-09-28] MEDS: PROPOFOL 100 ML IV ×6 (08:10→23:39)
[2017-09-28] MEDS: FAMOTIDINE 20 MG TAB NGT (08:10)
[2017-09-28] MEDS: ENOXAPARIN 80 MG/0.8 ML SYG SC (08:11)
[2017-09-28] MEDS: BALSAM PERU/CASTOR OIL 60 GM TUBE TOP ×2 (08:12→20:55)
[2017-09-28 09:20] LABS: ANISOCYTOSIS 1+ (0-0); BAND NEUTROPHILS #M 0.3 10^3/ul (0.0-0.6); BAND NEUTROPHILS % (M) 3 % (0-4); LYMPHOCYTES #M 0.4 10^3/ul (0.8-2.9); LYMPHOCYTES % (M) 4 % (15-51); MONOCYTE #M 0.2 10^3/ul (0.3-0.9); MONOCYTES % (M) 2 % (0-11); PLATELET ESTIMATE NORMAL; POLYCHROMASIA 3+ (0-0); SEG NEUT #M 9.9 10^3/ul (1.7-7.5); SEGMENTED NEUTROPHILS (M) % 92 % (39-77)
[2017-09-28] MEDS: ACETAZOLAMIDE 500 MG INJ IV (10:25)
[2017-09-28] MEDS: CEFAZOLIN 2 GM in SOD CHLORIDE 0.9% 50 ML IVPB (10:57)
[2017-09-28 12:14] LABS: AADO2 Arterial 489.3 mmHg (7.0-24.0); Allen Test ACCEPTAB; Arterial Base Excess 9.3 mmol/L (-3.0-3); Arterial Blood Gas Oxygen Sat 98.5 mmHG (95.0-100.0); Arterial COHb 0.3 % (0.0-3.0); Arterial Fraction of Oxyhgb 98.2 % (93.0-99.0); Arterial HCO3 37.3 mmol/L (22.0-26.0); Arterial MetHb 0 % (0.0-1.5); Arterial Total Hemglobin 10.5 g/dl (12.0-18.0); Arterial pCO2 72.4 mmhg (35-45); MODE VENT - AC; Site Right Radial
[2017-09-28 14:49] LABS: ANION GAP 15 (8-16); BLOOD UREA NITROGEN 67 mg/dl (7-20); CALCIUM 8.8 mg/dl (8.4-10.2); CARBON DIOXIDE 38 mmol/L (21-31); CHLORIDE 97 mmol/L (97-110); CREATININE 2.03 mg/dl (0.61-1.24); GLUCOSE 153 mg/dl (70-220); POTASSIUM 3.1 mmol/L (3.5-5.1); SODIUM 147 mmol/L (135-144)
[2017-09-28] MEDS: POTASSIUM CHLORIDE 20 MEQ POWDER FOR ORAL SOLN NGT (16:34)
[2017-09-28] MEDS: DEXTROSE 5% 1,000 ML IV (23:28)
[2017-09-29] MEDS: ACETYLCYSTEINE 20% 4 ML VIAL NEB ×4 (01:13→19:46)
[2017-09-29] MEDS: ALBUTEROL HFA 8 GM INHALER INH ×4 (01:14→19:46)
[2017-09-29] MEDS: IPRATROPIUM (HFA) 12.9 GM INHALER INH ×2 (01:14→19:46)
[2017-09-29] MEDS: ACCU-CHEK XX (02:00)
[2017-09-29] MEDS: INSULIN ASPART [NOVOLOG] 3 ML PEN SC ×6 (02:53→20:24)
[2017-09-29] MEDS: PROPOFOL 100 ML IV ×3 (02:55→20:00)
[2017-09-29 06:20] LABS: ADD MAN DIFF? NO
[2017-09-29] MEDS: PIPER-TAZO 2.25 GM (PMX) 50 ML IVPB (06:26)
[2017-09-29] MEDS: METHYLPREDNISOLONE 125 MG INJ IV ×3 (06:26→21:52)
[2017-09-29 06:29] LABS: ABNORMAL IP MESSAGE 1; BASOPHILS % 0.1 % (0.0-2.0); HEMATOCRIT 30.2 % (42.0-52.0); HEMOGLOBIN 9.1 g/dl (14.0-18.0); LYMPHOCYTES # 0.5 10^3/ul (0.8-2.9); MEAN CORPUSCULAR HGB CONC 30.1 g/dl (32.0-37.0); MEAN CORPUSCULAR VOLUME 96.2 fl (82.0-101.0); MEAN PLATELET VOLUME 10.8 fl (7.4-10.4); MONOCYTE # 0.7 10^3/ul (0.3-0.9); MONOCYTES % 3.9 % (0.0-11.0); NEUTROPHIL # 15.6 10^3/ul (1.6-7.5); NEUTROPHILS % 91.1 % (39.0-77.0); NUCLEATED RED BLOOD CELLS% 0.1 /100WBC (0.0-0.0); PLATELET COUNT 252 10^3/UL (140-415); POSITIVE DIFF @See below; RED BLOOD COUNT 3.14 10^6/ul (4.70-6.10); RED CELL DISTRIBUTION WIDTH 14.2 % (11.5-14.5)
[2017-09-29 06:29] LABS: WHITE BLOOD COUNT 17.1 10^3/ul (4.8-10.8)
[2017-09-29 06:50] LABS: INR 1.24; PROTIME 15.8 Sec (11.9-14.9); PT RATIO 1.2
[2017-09-29 06:57] LABS: ANION GAP 15 (8-16)
[2017-09-29 07:11] LABS: BLOOD UREA NITROGEN 68 mg/dl (7-20); CALCIUM 8.8 mg/dl (8.4-10.2); CARBON DIOXIDE 36 mmol/L (21-31); CHLORIDE 94 mmol/L (97-110); CREATININE 1.82 mg/dl (0.61-1.24); GLUCOSE 134 mg/dl (70-220); MAGNESIUM 2.2 mg/dl (1.7-2.5); PHOSPHORUS 5.6 mg/dl (2.5-4.9); SODIUM 142 mmol/L (135-144)
[2017-09-29 07:13] LABS: POTASSIUM 2.9 mmol/L (3.5-5.1)
[2017-09-29 09:10] LABS: ALBUMIN 3.1 g/dl (3.3-4.9)
[2017-09-29] MEDS: POTASSIUM CHLORIDE 250 ML IVPB ×2 (09:33→12:30)
[2017-09-29] MEDS: FAMOTIDINE 20 MG TAB NGT (09:33)
[2017-09-29] MEDS: ENOXAPARIN 80 MG/0.8 ML SYG SC (09:42)
[2017-09-29] MEDS: BALSAM PERU/CASTOR OIL 60 GM TUBE TOP ×2 (09:44→20:25)
[2017-09-29] MEDS: CEFAZOLIN 2 GM/50 ML (PMX) 50 ML IVPB (11:00)
[2017-09-29] MEDS: FLUCONAZOLE 100 MG TAB PO (11:56)
[2017-09-29] MEDS: FUROSEMIDE 40 MG INJ IV (13:33)
[2017-09-29] MEDS: CEFTAZIDIME 1GM/50 ML (PMX) 50 ML IVPB ×2 (15:16→23:24)
[2017-09-29] MEDS: DEXTROSE 5% 1,000 ML IV (19:48)
[2017-09-29] MEDS: AMIODARONE 200 MG TAB PO (20:31)
[2017-09-30] MEDS: PROPOFOL 100 ML IV ×6 (00:12→21:19)
[2017-09-30] MEDS: INSULIN ASPART [NOVOLOG] 3 ML PEN SC ×6 (01:13→21:33)
[2017-09-30] MEDS: ACETYLCYSTEINE 20% 4 ML VIAL NEB ×4 (01:13→19:27)
[2017-09-30] MEDS: ALBUTEROL HFA 8 GM INHALER INH ×4 (01:13→19:27)
[2017-09-30] MEDS: ACCU-CHEK XX (02:00)
[2017-09-30 04:55] LABS: ADD MAN DIFF? NO
[2017-09-30 04:56] LABS: WHITE BLOOD COUNT 13.1 10^3/ul (4.8-10.8)
[2017-09-30 04:56] LABS: ABNORMAL IP MESSAGE 1; BASOPHILS % 0.1 % (0.0-2.0); HEMATOCRIT 30.4 % (42.0-52.0); HEMOGLOBIN 9.2 g/dl (14.0-18.0); LYMPHOCYTES # 0.3 10^3/ul (0.8-2.9); LYMPHOCYTES % 1.9 % (15.0-51.0); MEAN CORPUSCULAR HEMOGLOBIN 28.6 pg (29.0-33.0); MEAN CORPUSCULAR HGB CONC 30.3 g/dl (32.0-37.0); MEAN CORPUSCULAR VOLUME 94.4 fl (82.0-101.0); MEAN PLATELET VOLUME 10.5 fl (7.4-10.4); MONOCYTE # 0.3 10^3/ul (0.3-0.9); NEUTROPHIL # 12.2 10^3/ul (1.6-7.5); NEUTROPHILS % 93.1 % (39.0-77.0); NUCLEATED RED BLOOD CELLS% 0.2 /100WBC (0.0-0.0); PLATELET COUNT 271 10^3/UL (140-415); POSITIVE DIFF @See below; RED BLOOD COUNT 3.22 10^6/ul (4.70-6.10); RED CELL DISTRIBUTION WIDTH 14.1 % (11.5-14.5)
[2017-09-30] MEDS: METHYLPREDNISOLONE 125 MG INJ IV ×3 (05:03→21:36)
[2017-09-30 05:20] LABS: ANION GAP 15 (8-16); BLOOD UREA NITROGEN 70 mg/dl (7-20); CALCIUM 8.7 mg/dl (8.4-10.2); CARBON DIOXIDE 36 mmol/L (21-31); CHLORIDE 101 mmol/L (97-110); CREATININE 1.52 mg/dl (0.61-1.24); GLUCOSE 177 mg/dl (70-220); MAGNESIUM 2.2 mg/dl (1.7-2.5); PHOSPHORUS 4.5 mg/dl (2.5-4.9); POTASSIUM 3.5 mmol/L (3.5-5.1); SODIUM 148 mmol/L (135-144)
[2017-09-30] MEDS: IPRATROPIUM (HFA) 12.9 GM INHALER INH ×3 (07:34→19:28)
[2017-09-30] MEDS: POTASSIUM CHLORIDE (SR) 20 MEQ TAB PO (08:27)
[2017-09-30 09:06] LABS: AADO2 Arterial 559.1 mmHg (7.0-24.0); Allen Test ACCEPTAB; Arterial Base Excess 5.5 mmol/L (-3.0-3); Arterial Blood Gas Oxygen Sat 96.2 mmHG (95.0-100.0); Arterial COHb 0 % (0.0-3.0); Arterial HCO3 33.1 mmol/L (22.0-26.0); Arterial MetHb 0.2 % (0.0-1.5); Arterial Total Hemglobin 12.2 g/dl (12.0-18.0); Arterial pCO2 63.8 mmhg (35-45); MODE VENT - AC; Site Right Radial
[2017-09-30] MEDS: FAMOTIDINE 20 MG TAB NGT (10:15)
[2017-09-30] MEDS: POTASSIUM CHLORIDE 20 MEQ POWDER FOR ORAL SOLN GTB (10:15)
[2017-09-30] MEDS: ACETAZOLAMIDE 500 MG INJ IV (10:16)
[2017-09-30] MEDS: FUROSEMIDE 20 MG INJ IV (10:16)
[2017-09-30] MEDS: FLUCONAZOLE 100 MG TAB PO (10:16)
[2017-09-30] MEDS: EPOETIN 10000 UNITS/1 ML INJ (ESRD) SC (10:19)
[2017-09-30] MEDS: CEFTAZIDIME 1GM/50 ML (PMX) 50 ML IVPB ×2 (10:19→21:19)
[2017-09-30] MEDS: ENOXAPARIN 80 MG/0.8 ML SYG SC (10:22)
[2017-09-30 11:29] LABS: ASPARTATE AMINO TRANSFERASE 22 IU/L (15-46)
[2017-09-30] MEDS: BALSAM PERU/CASTOR OIL 60 GM TUBE TOP ×2 (12:27→21:19)
[2017-09-30] MEDS: DEXTROSE 5% 1,000 ML IV (13:17)
[2017-09-30 14:00] LABS: IRON 39 ug/dl (35-150)
[2017-09-30 14:10] LABS: % IRON SATURATION 21 % SAT (22-52); TOTAL IRON BINDING CAPACITY 185 ug/dl (241-421)
[2017-09-30] MEDS ORDERED: GLUCAGON 1 MG INJ IM (16:30)
[2017-09-30] MEDS ORDERED: GLUCOSE GEL 15 GRAM TUBE PO ×2 (16:30)
[2017-09-30] MEDS ORDERED: GLUCOSE GEL 15 GRAM TUBE BUCCAL (16:30)
[2017-09-30] MEDS ORDERED: DEXTROSE 50% 50 ML SYRINGE IV ×2 (16:30)
[2017-10-01] MEDS: PROPOFOL 100 ML IV ×5 (00:12→20:58)
[2017-10-01] MEDS: INSULIN ASPART [NOVOLOG] 3 ML PEN SC ×6 (01:05→20:44)
[2017-10-01] MEDS: ALBUTEROL HFA 8 GM INHALER INH ×4 (01:20→19:11)
[2017-10-01] MEDS: ACETYLCYSTEINE 20% 4 ML VIAL NEB ×4 (01:20→19:11)
[2017-10-01] MEDS: IPRATROPIUM (HFA) 12.9 GM INHALER INH ×4 (01:20→19:11)
[2017-10-01] MEDS: ACCU-CHEK XX (01:45)
[2017-10-01] MEDS: METHYLPREDNISOLONE 125 MG INJ IV ×2 (04:54→09:30)
[2017-10-01 06:35] LABS: ANION GAP 14 (8-16); BLOOD UREA NITROGEN 72 mg/dl (7-20); CALCIUM 8.7 mg/dl (8.4-10.2); CARBON DIOXIDE 36 mmol/L (21-31); CHLORIDE 104 mmol/L (97-110); CREATININE 1.53 mg/dl (0.61-1.24); GLUCOSE 203 mg/dl (70-220); MAGNESIUM 2.5 mg/dl (1.7-2.5); PHOSPHORUS 4.9 mg/dl (2.5-4.9); POTASSIUM 3.3 mmol/L (3.5-5.1); SODIUM 151 mmol/L (135-144)
[2017-10-01 08:37] LABS: AADO2 Arterial 406.8 mmHg (7.0-24.0); Allen Test ACCEPTAB; Arterial Base Excess 7.9 mmol/L (-3.0-3); Arterial COHb 0.3 % (0.0-3.0); Arterial Fraction of Oxyhgb 95.6 % (93.0-99.0); Arterial HCO3 36.1 mmol/L (22.0-26.0); Arterial MetHb 0.1 % (0.0-1.5); Arterial Total Hemglobin 10.5 g/dl (12.0-18.0); Arterial pCO2 73.1 mmhg (35-45); MODE VENT - AC; Site Right Radial
[2017-10-01] MEDS: POTASSIUM CHLORIDE 20 MEQ POWDER FOR ORAL SOLN GTB (09:29)
[2017-10-01] MEDS: FUROSEMIDE 20 MG INJ IV (09:30)
[2017-10-01] MEDS: BALSAM PERU/CASTOR OIL 60 GM TUBE TOP ×2 (09:31→20:38)
[2017-10-01] MEDS: FAMOTIDINE 20 MG TAB NGT (09:31)
[2017-10-01] MEDS: FLUCONAZOLE 100 MG TAB PO (09:31)
[2017-10-01] MEDS: ACETAZOLAMIDE 500 MG INJ IV (09:31)
[2017-10-01] MEDS: ENOXAPARIN 80 MG/0.8 ML SYG SC (09:33)
[2017-10-01] MEDS: CEFTAZIDIME 1GM/50 ML (PMX) 50 ML IVPB ×2 (10:18→20:37)
[2017-10-01] MEDS: FUROSEMIDE 40 MG INJ IV (11:00)
[2017-10-01] MEDS: DEXTROSE 5% 1,000 ML IV (12:00)
[2017-10-01 15:20] LABS: ANION GAP 16 (8-16); BLOOD UREA NITROGEN 75 mg/dl (7-20); CALCIUM 8.7 mg/dl (8.4-10.2); CARBON DIOXIDE 36 mmol/L (21-31); CHLORIDE 103 mmol/L (97-110); CREATININE 1.48 mg/dl (0.61-1.24); GLUCOSE 208 mg/dl (70-220); POTASSIUM 3.7 mmol/L (3.5-5.1); SODIUM 151 mmol/L (135-144)
[2017-10-01] MEDS: METHYLPREDNISOLONE 40 MG INJ IV ×2 (15:30→22:11)
[2017-10-01] MEDS: POTASSIUM CHLORIDE (SR) 20 MEQ TAB PO (20:38)
[2017-10-01] MEDS: POTASSIUM CHLORIDE 20 MEQ POWDER FOR ORAL SOLN NGT (20:56)
[2017-10-02] MEDS: ACCU-CHEK XX (00:59)
[2017-10-02] MEDS: IPRATROPIUM (HFA) 12.9 GM INHALER INH ×4 (01:00→19:29)
[2017-10-02] MEDS: ALBUTEROL HFA 8 GM INHALER INH ×4 (01:00→19:30)
[2017-10-02] MEDS: ACETYLCYSTEINE 20% 4 ML VIAL NEB ×2 (01:01→08:22)
[2017-10-02] MEDS: INSULIN ASPART [NOVOLOG] 3 ML PEN SC ×6 (01:16→21:17)
[2017-10-02] MEDS: PROPOFOL 100 ML IV ×6 (01:17→22:35)
[2017-10-02] MEDS: METHYLPREDNISOLONE 40 MG INJ IV ×3 (05:50→21:52)
[2017-10-02 06:24] LABS: ABNORMAL IP MESSAGE 1; HEMOGLOBIN 9.5 g/dl (14.0-18.0); MEAN CORPUSCULAR HEMOGLOBIN 29.1 pg (29.0-33.0); MEAN CORPUSCULAR HGB CONC 29.7 g/dl (32.0-37.0); MEAN CORPUSCULAR VOLUME 97.9 fl (82.0-101.0); MEAN PLATELET VOLUME 10.4 fl (7.4-10.4); PLATELET COUNT 325 10^3/UL (140-415); POSITIVE DIFF @See below; RED BLOOD COUNT 3.27 10^6/ul (4.70-6.10); RED CELL DISTRIBUTION WIDTH 14.3 % (11.5-14.5)
[2017-10-02 06:25] LABS: ADD MAN DIFF? YES
[2017-10-02 07:18] LABS: MAGNESIUM 2.6 mg/dl (1.7-2.5)
[2017-10-02 07:18] LABS: PHOSPHORUS 4.5 mg/dl (2.5-4.9)
[2017-10-02 07:34] LABS: ANISOCYTOSIS 1+ (0-0); BAND NEUTROPHILS #M 0.5 10^3/ul (0.0-0.6); BAND NEUTROPHILS % (M) 3 % (0-4); EOSINOPHILS % (M) 1 % (0-7); LYMPHOCYTES #M 0.5 10^3/ul (0.8-2.9); LYMPHOCYTES % (M) 3 % (15-51); MICROCYTOSIS 1+ (0-0); MONOCYTE #M 0.3 10^3/ul (0.3-0.9); MONOCYTES % (M) 2 % (0-11); MYELOCYTES #M 0.1 10^3/ul (0.0-0.0); MYELOCYTES % (M) 1 % (0-0); PLATELET ESTIMATE NORMAL; SEG NEUT #M 17.2 10^3/ul (1.7-7.5); SEGMENTED NEUTROPHILS (M) % 90 % (39-77)
[2017-10-02 07:51] LABS: AADO2 Arterial 414.3 mmHg (7.0-24.0); Allen Test ACCEPTAB; Arterial Base Excess 5.4 mmol/L (-3.0-3); Arterial COHb 0.3 % (0.0-3.0); Arterial Fraction of Oxyhgb 95.5 % (93.0-99.0); Arterial HCO3 33.3 mmol/L (22.0-26.0); Arterial MetHb 0.2 % (0.0-1.5); Arterial Total Hemglobin 10.7 g/dl (12.0-18.0); Arterial pCO2 68.2 mmhg (35-45); MODE VENT - AC; Site Right Radial
[2017-10-02] MEDS: DEXTROSE 5% 1,000 ML IV (08:00)
[2017-10-02] MEDS ORDERED: METOLAZONE 5 MG TAB PO (08:00)
[2017-10-02] MEDS ORDERED: DILTIAZEM 30 MG TAB GTB (08:30)
[2017-10-02] MEDS: BALSAM PERU/CASTOR OIL 60 GM TUBE TOP ×3 (09:00→21:10)
[2017-10-02 09:31] LABS: ANION GAP 16 (8-16); BLOOD UREA NITROGEN 78 mg/dl (7-20); CALCIUM 8.8 mg/dl (8.4-10.2); CARBON DIOXIDE 33 mmol/L (21-31); CHLORIDE 106 mmol/L (97-110); CREATININE 1.44 mg/dl (0.61-1.24); GLUCOSE 177 mg/dl (70-220); POTASSIUM 4.5 mmol/L (3.5-5.1); SODIUM 150 mmol/L (135-144)
[2017-10-02] MEDS: FUROSEMIDE 40 MG INJ IV (09:47)
[2017-10-02] MEDS: ENOXAPARIN 80 MG/0.8 ML SYG SC (09:55)
[2017-10-02] MEDS: CEFTAZIDIME 1GM/50 ML (PMX) 50 ML IVPB ×2 (09:58→21:05)
[2017-10-02] MEDS: ACETAZOLAMIDE 500 MG INJ IV (09:58)
[2017-10-02] MEDS: FAMOTIDINE 20 MG TAB NGT (10:03)
[2017-10-02] MEDS: FLUCONAZOLE 100 MG TAB PO (10:03)
[2017-10-02 10:06] LABS: AADO2 Arterial 475.1 mmHg (7.0-24.0); Allen Test ACCEPTAB; Arterial Base Excess 8.6 mmol/L (-3.0-3); Arterial Blood Gas Oxygen Sat 98.8 mmHG (95.0-100.0); Arterial COHb 0.3 % (0.0-3.0); Arterial Fraction of Oxyhgb 98.5 % (93.0-99.0); Arterial HCO3 36.8 mmol/L (22.0-26.0); Arterial MetHb 0 % (0.0-1.5); Arterial Total Hemglobin 10.5 g/dl (12.0-18.0); Arterial pCO2 73.4 mmhg (35-45); MODE VENT - AC; Site Right Radial
[2017-10-02] MEDS: DILTIAZEM 30 MG TAB PO ×2 (14:13→21:10)
[2017-10-02] MEDS: ACETAMINOPHEN 325 MG TAB PO (18:11)
[2017-10-03] MEDS: INSULIN ASPART [NOVOLOG] 3 ML PEN SC ×6 (00:56→21:50)
[2017-10-03] MEDS: DEXTROSE 5% 1,000 ML IV (00:58)
[2017-10-03] MEDS: ACCU-CHEK XX (00:58)
[2017-10-03] MEDS: IPRATROPIUM (HFA) 12.9 GM INHALER INH ×2 (01:33→19:29)
[2017-10-03] MEDS: ALBUTEROL HFA 8 GM INHALER INH ×4 (01:33→19:30)
[2017-10-03] MEDS: PROPOFOL 100 ML IV ×5 (03:06→20:06)
[2017-10-03 05:03] LABS: ABNORMAL IP MESSAGE 1; HEMATOCRIT 29.2 % (42.0-52.0); HEMOGLOBIN 8.9 g/dl (14.0-18.0); MEAN CORPUSCULAR HEMOGLOBIN 29.6 pg (29.0-33.0); MEAN CORPUSCULAR HGB CONC 30.5 g/dl (32.0-37.0); MEAN PLATELET VOLUME 10.3 fl (7.4-10.4); PLATELET COUNT 311 10^3/UL (140-415); POSITIVE DIFF @See below; RED BLOOD COUNT 3.01 10^6/ul (4.70-6.10); RED CELL DISTRIBUTION WIDTH 14.6 % (11.5-14.5)
[2017-10-03 05:11] LABS: ADD MAN DIFF? YES
[2017-10-03 05:26] LABS: ANION GAP 12 (8-16); BLOOD UREA NITROGEN 82 mg/dl (7-20); CALCIUM 8.7 mg/dl (8.4-10.2); CARBON DIOXIDE 34 mmol/L (21-31); CHLORIDE 104 mmol/L (97-110); GLUCOSE 195 mg/dl (70-220); MAGNESIUM 2.4 mg/dl (1.7-2.5); PHOSPHORUS 4.3 mg/dl (2.5-4.9); POTASSIUM 3.9 mmol/L (3.5-5.1); SODIUM 146 mmol/L (135-144)
[2017-10-03] MEDS: DILTIAZEM 30 MG TAB PO ×3 (05:32→21:37)
[2017-10-03] MEDS: METHYLPREDNISOLONE 40 MG INJ IV ×3 (05:32→21:36)
[2017-10-03 07:48] LABS: BAND NEUTROPHILS #M 1.2 10^3/ul (0.0-0.6); BAND NEUTROPHILS % (M) 3 % (0-4); MYELOCYTES #M 0.4 10^3/ul (0.0-0.0); MYELOCYTES % (M) 1 % (0-0); PLATELET ESTIMATE NORMAL; POLYCHROMASIA 2+ (0-0); REACTIVE LYMPHOCYTES #M 0.4 10^3/ul (0.0-0.0); REACTIVE LYMPHOCYTES% (M) 1 % (0-0)
[2017-10-03 08:21] LABS: LYMPHOCYTES #M 1.2 10^3/ul (0.8-2.9); LYMPHOCYTES % (M) 3 % (15-51); MONOCYTE #M 0.8 10^3/ul (0.3-0.9); MONOCYTES % (M) 2 % (0-11); SEG NEUT #M 37.8 10^3/ul (1.7-7.5); SEGMENTED NEUTROPHILS (M) % 91 % (39-77); SMUDGE%M 10 % (0-0)
[2017-10-03] MEDS: CEFAZOLIN 2 GM in SOD CHLORIDE 0.9% 50 ML IVPB (09:30)
[2017-10-03] MEDS: POTASSIUM CHLORIDE 20 MEQ POWDER FOR ORAL SOLN NGT (09:48)
[2017-10-03] MEDS: FLUCONAZOLE 100 MG TAB PO (09:48)
[2017-10-03] MEDS: FAMOTIDINE 20 MG TAB NGT (09:48)
[2017-10-03] MEDS: CEFTAZIDIME 1GM/50 ML (PMX) 50 ML IVPB ×2 (09:48→21:34)
[2017-10-03] MEDS: FUROSEMIDE 40 MG INJ IV (09:49)
[2017-10-03] MEDS: BALSAM PERU/CASTOR OIL 60 GM TUBE TOP ×2 (09:50→21:37)
[2017-10-03 10:00] LABS: ALBUMIN 2.8 g/dl (3.3-4.9)
[2017-10-03] MEDS: ENOXAPARIN 80 MG/0.8 ML SYG SC (10:10)
[2017-10-03] MEDS: ACETAZOLAMIDE 500 MG INJ IV (10:52)
[2017-10-03] MEDS: CASPOFUNGIN 70 MG in NS 250 ML IVPB (12:14)
[2017-10-03] MEDS: metroNIDAZOLE 500 MG TAB PO ×2 (13:40→21:37)
[2017-10-04] MEDS: DEXTROSE 5% 1,000 ML IV ×3 (00:18→23:09)
[2017-10-04] MEDS: INSULIN ASPART [NOVOLOG] 3 ML PEN SC ×6 (01:09→21:04)
[2017-10-04] MEDS: ACCU-CHEK XX (01:10)
[2017-10-04] MEDS: IPRATROPIUM (HFA) 12.9 GM INHALER INH ×2 (01:18→19:58)
[2017-10-04] MEDS: ALBUTEROL HFA 8 GM INHALER INH ×4 (01:18→19:58)
[2017-10-04] MEDS: PROPOFOL 100 ML IV ×5 (01:29→22:50)
[2017-10-04 05:25] LABS: ADD MAN DIFF? NO
[2017-10-04 05:33] LABS: ABNORMAL IP MESSAGE 1; BASOPHILS % 0.1 % (0.0-2.0); HEMATOCRIT 26.5 % (42.0-52.0); LYMPHOCYTES # 0.4 10^3/ul (0.8-2.9); MEAN CORPUSCULAR HEMOGLOBIN 29.3 pg (29.0-33.0); MEAN CORPUSCULAR HGB CONC 30.2 g/dl (32.0-37.0); MEAN CORPUSCULAR VOLUME 97.1 fl (82.0-101.0); MEAN PLATELET VOLUME 10.5 fl (7.4-10.4); MONOCYTE # 0.3 10^3/ul (0.3-0.9); MONOCYTES % 1.6 % (0.0-11.0); NEUTROPHIL # 18.4 10^3/ul (1.6-7.5); NEUTROPHILS % 92.2 % (39.0-77.0); PLATELET COUNT 278 10^3/UL (140-415); POSITIVE DIFF @See below; RED BLOOD COUNT 2.73 10^6/ul (4.70-6.10); RED CELL DISTRIBUTION WIDTH 14.6 % (11.5-14.5)
[2017-10-04] MEDS: metroNIDAZOLE 500 MG TAB PO ×3 (05:40→21:02)
[2017-10-04] MEDS: DILTIAZEM 30 MG TAB PO ×3 (05:40→21:02)
[2017-10-04] MEDS: METHYLPREDNISOLONE 40 MG INJ IV ×3 (05:40→21:02)
[2017-10-04 06:21] LABS: ANION GAP 15 (8-16); BLOOD UREA NITROGEN 79 mg/dl (7-20); CALCIUM 8.8 mg/dl (8.4-10.2); CARBON DIOXIDE 33 mmol/L (21-31); CHLORIDE 105 mmol/L (97-110); CREATININE 1.27 mg/dl (0.61-1.24); GLUCOSE 186 mg/dl (70-220); MAGNESIUM 2.4 mg/dl (1.7-2.5); PHOSPHORUS 5.5 mg/dl (2.5-4.9); POTASSIUM 4.7 mmol/L (3.5-5.1); SODIUM 148 mmol/L (135-144)
[2017-10-04 08:54] LABS: ALANINE AMINOTRANSFERASE 28 IU/L (13-69); ALBUMIN 2.4 g/dl (3.3-4.9); ALKALINE PHOSPHATASE 195 IU/L (42-121); ASPARTATE AMINO TRANSFERASE 22 IU/L (15-46); TOTAL PROTEIN 5.5 g/dl (6.1-8.1)
[2017-10-04 08:54] LABS: AMYLASE 102 U/L (11-123)
[2017-10-04] MEDS: ENOXAPARIN 80 MG/0.8 ML SYG SC (09:00)
[2017-10-04] MEDS: BALSAM PERU/CASTOR OIL 60 GM TUBE TOP ×2 (09:00→21:01)
[2017-10-04] MEDS: CEFTAZIDIME 1GM/50 ML (PMX) 50 ML IVPB ×2 (09:20→20:44)
[2017-10-04] MEDS: FUROSEMIDE 40 MG INJ IV (09:20)
[2017-10-04] MEDS: FAMOTIDINE 20 MG TAB NGT (09:20)
[2017-10-04 10:02] LABS: AADO2 Arterial 328.3 mmHg (7.0-24.0); Arterial Base Excess 6.7 mmol/L (-3.0-3); Arterial Blood Gas Oxygen Sat 91.3 mmHG (95.0-100.0); Arterial COHb 0.3 % (0.0-3.0); Arterial Fraction of Oxyhgb 90.9 % (93.0-99.0); Arterial HCO3 34.1 mmol/L (22.0-26.0); Arterial MetHb 0.1 % (0.0-1.5); Arterial Total Hemglobin 10.4 g/dl (12.0-18.0); Arterial pCO2 65.9 mmhg (35-45); MODE VENT - AC; Site Right Brachial
[2017-10-04] MEDS: ACETAZOLAMIDE 500 MG INJ IV (11:17)
[2017-10-04] MEDS: EPOETIN 10000 UNITS/1 ML INJ (ESRD) SC (11:21)
[2017-10-04 13:23] LABS: OCCULT BLOOD STOOL POSITIVE (NEGATIVE)
[2017-10-04] MEDS: CASPOFUNGIN 50 MG in SOD CHLORIDE 0.9% 250 ML IVPB (13:25)
[2017-10-04] MEDS: PROPOFOL 20 ML (17:03)
[2017-10-04] MEDS: CEFAZOLIN 2 GM in SOD CHLORIDE 0.9% 50 ML IVPB (18:45)
[2017-10-04] MEDS: LITHIUM CARBONATE 300 MG CAP PO (20:44)
[2017-10-04] MEDS: AMANTADINE 100 MG CAP PO (20:44)
[2017-10-05] MEDS: INSULIN ASPART [NOVOLOG] 3 ML PEN SC ×6 (00:57→20:55)
[2017-10-05] MEDS: ACCU-CHEK XX (02:00)
[2017-10-05] MEDS: IPRATROPIUM (HFA) 12.9 GM INHALER INH ×4 (02:11→19:30)
[2017-10-05] MEDS: ALBUTEROL HFA 8 GM INHALER INH ×4 (02:11→19:30)
[2017-10-05] MEDS: PROPOFOL 100 ML IV ×3 (04:35→19:34)
[2017-10-05] MEDS: DILTIAZEM 30 MG TAB PO ×3 (05:01→22:25)
[2017-10-05] MEDS: METHYLPREDNISOLONE 40 MG INJ IV ×3 (05:01→22:26)
[2017-10-05] MEDS: metroNIDAZOLE 500 MG TAB PO (05:01)
[2017-10-05 05:46] LABS: ADD MAN DIFF? NO
[2017-10-05 06:07] LABS: WHITE BLOOD COUNT 15.1 10^3/ul (4.8-10.8)
[2017-10-05 06:07] LABS: ABNORMAL IP MESSAGE 1; BASOPHILS % 0.1 % (0.0-2.0); HEMATOCRIT 27.3 % (42.0-52.0); HEMOGLOBIN 8.3 g/dl (14.0-18.0); LYMPHOCYTES # 0.6 10^3/ul (0.8-2.9); LYMPHOCYTES % 3.8 % (15.0-51.0); MEAN CORPUSCULAR HEMOGLOBIN 28.9 pg (29.0-33.0); MEAN CORPUSCULAR HGB CONC 30.4 g/dl (32.0-37.0); MEAN CORPUSCULAR VOLUME 95.1 fl (82.0-101.0); MEAN PLATELET VOLUME 10.3 fl (7.4-10.4); MONOCYTE # 0.5 10^3/ul (0.3-0.9); MONOCYTES % 3.1 % (0.0-11.0); NEUTROPHIL # 13.2 10^3/ul (1.6-7.5); NEUTROPHILS % 87.4 % (39.0-77.0); NUCLEATED RED BLOOD CELLS% 0.1 /100WBC (0.0-0.0); PLATELET COUNT 290 10^3/UL (140-415); POSITIVE DIFF @See below; RED BLOOD COUNT 2.87 10^6/ul (4.70-6.10); RED CELL DISTRIBUTION WIDTH 14.3 % (11.5-14.5)
[2017-10-05 06:34] LABS: ANION GAP 13 (8-16); BLOOD UREA NITROGEN 72 mg/dl (7-20); CALCIUM 8.6 mg/dl (8.4-10.2); CARBON DIOXIDE 34 mmol/L (21-31); CHLORIDE 102 mmol/L (97-110); CREATININE 1.27 mg/dl (0.61-1.24); GLUCOSE 170 mg/dl (70-220); MAGNESIUM 2.3 mg/dl (1.7-2.5); PHOSPHORUS 5.4 mg/dl (2.5-4.9); POTASSIUM 3.7 mmol/L (3.5-5.1); SODIUM 145 mmol/L (135-144)
[2017-10-05] MEDS: FUROSEMIDE 40 MG INJ IV ×2 (08:47→20:30)
[2017-10-05] MEDS: FAMOTIDINE 20 MG TAB NGT (08:48)
[2017-10-05] MEDS: CEFTAZIDIME 1GM/50 ML (PMX) 50 ML IVPB ×2 (08:48→20:40)
[2017-10-05] MEDS: ENOXAPARIN 80 MG/0.8 ML SYG SC (09:05)
[2017-10-05] MEDS: BALSAM PERU/CASTOR OIL 60 GM TUBE TOP ×2 (09:30→20:48)
[2017-10-05] MEDS: CASPOFUNGIN 50 MG in SOD CHLORIDE 0.9% 250 ML IVPB (13:53)
[2017-10-06] MEDS: IPRATROPIUM (HFA) 12.9 GM INHALER INH ×3 (01:09→13:16)
[2017-10-06] MEDS: ALBUTEROL HFA 8 GM INHALER INH ×4 (01:09→19:23)
[2017-10-06] MEDS: INSULIN ASPART [NOVOLOG] 3 ML PEN SC ×6 (01:22→20:34)
[2017-10-06] MEDS: ACCU-CHEK XX (01:23)
[2017-10-06] MEDS: PROPOFOL 100 ML IV ×5 (02:20→20:23)
[2017-10-06 05:23] LABS: ADD MAN DIFF? NO
[2017-10-06 05:27] LABS: WHITE BLOOD COUNT 15.7 10^3/ul (4.8-10.8)
[2017-10-06 05:27] LABS: ABNORMAL IP MESSAGE 1; BASOPHILS % 0.1 % (0.0-2.0); HEMATOCRIT 27.1 % (42.0-52.0); HEMOGLOBIN 8.4 g/dl (14.0-18.0); LYMPHOCYTES # 0.3 10^3/ul (0.8-2.9); LYMPHOCYTES % 2.1 % (15.0-51.0); MEAN CORPUSCULAR HEMOGLOBIN 29.3 pg (29.0-33.0); MEAN CORPUSCULAR VOLUME 94.4 fl (82.0-101.0); MEAN PLATELET VOLUME 10.6 fl (7.4-10.4); MONOCYTE # 0.4 10^3/ul (0.3-0.9); MONOCYTES % 2.6 % (0.0-11.0); NEUTROPHIL # 14.5 10^3/ul (1.6-7.5); NEUTROPHILS % 92.3 % (39.0-77.0); NUCLEATED RED BLOOD CELLS% 0.1 /100WBC (0.0-0.0); PLATELET COUNT 272 10^3/UL (140-415); POSITIVE DIFF @See below; RED BLOOD COUNT 2.87 10^6/ul (4.70-6.10); RED CELL DISTRIBUTION WIDTH 14.6 % (11.5-14.5)
[2017-10-06 05:43] LABS: ANION GAP 13 (8-16); BLOOD UREA NITROGEN 72 mg/dl (7-20); CALCIUM 8.3 mg/dl (8.4-10.2); CARBON DIOXIDE 32 mmol/L (21-31); CHLORIDE 101 mmol/L (97-110); CREATININE 1.19 mg/dl (0.61-1.24); GLUCOSE 159 mg/dl (70-220); MAGNESIUM 2.1 mg/dl (1.7-2.5); PHOSPHORUS 5.2 mg/dl (2.5-4.9); POTASSIUM 3.9 mmol/L (3.5-5.1); SODIUM 142 mmol/L (135-144)
[2017-10-06] MEDS: DILTIAZEM 30 MG TAB PO ×3 (05:54→21:45)
[2017-10-06] MEDS: METHYLPREDNISOLONE 40 MG INJ IV ×3 (05:54→21:44)
[2017-10-06 08:35] LABS: AADO2 Arterial 398.5 mmHg (7.0-24.0); Allen Test ACCEPTAB; Arterial Base Excess 5.6 mmol/L (-3.0-3); Arterial Blood Gas Oxygen Sat 92.8 mmHG (95.0-100.0); Arterial COHb 0.3 % (0.0-3.0); Arterial Fraction of Oxyhgb 92.2 % (93.0-99.0); Arterial HCO3 32.8 mmol/L (22.0-26.0); Arterial MetHb 0.3 % (0.0-1.5); Arterial Total Hemglobin 10.1 g/dl (12.0-18.0); Arterial pCO2 62.7 mmhg (35-45); MODE VENT - AC; Site Right Radial
[2017-10-06] MEDS: BALSAM PERU/CASTOR OIL 60 GM TUBE TOP ×2 (09:00→20:22)
[2017-10-06] MEDS: FUROSEMIDE 40 MG INJ IV ×2 (09:02→20:20)
[2017-10-06] MEDS: FAMOTIDINE 20 MG TAB NGT (09:02)
[2017-10-06] MEDS: ENOXAPARIN 80 MG/0.8 ML SYG SC (09:44)
[2017-10-06] MEDS: CASPOFUNGIN 50 MG in SOD CHLORIDE 0.9% 250 ML IVPB (12:33)
[2017-10-07] MEDS: ALBUTEROL HFA 8 GM INHALER INH ×4 (01:15→19:40)
[2017-10-07] MEDS: PROPOFOL 100 ML IV ×6 (01:21→21:17)
[2017-10-07] MEDS: INSULIN ASPART [NOVOLOG] 3 ML PEN SC ×6 (01:25→20:44)
[2017-10-07] MEDS: ACCU-CHEK XX (01:26)
[2017-10-07 05:21] LABS: ANION GAP 12 (8-16); BLOOD UREA NITROGEN 69 mg/dl (7-20); CALCIUM 8.7 mg/dl (8.4-10.2); CARBON DIOXIDE 34 mmol/L (21-31); CHLORIDE 99 mmol/L (97-110); GLUCOSE 162 mg/dl (70-220); MAGNESIUM 2.1 mg/dl (1.7-2.5); POTASSIUM 3.8 mmol/L (3.5-5.1); SODIUM 141 mmol/L (135-144)
[2017-10-07] MEDS: DILTIAZEM 30 MG TAB PO (05:36)
[2017-10-07] MEDS: METHYLPREDNISOLONE 40 MG INJ IV ×3 (05:36→20:34)
[2017-10-07] MEDS: IPRATROPIUM (HFA) 12.9 GM INHALER INH ×2 (07:25→13:35)
[2017-10-07] MEDS: BALSAM PERU/CASTOR OIL 60 GM TUBE TOP ×2 (08:55→20:45)
[2017-10-07] MEDS: FAMOTIDINE 20 MG TAB NGT (08:58)
[2017-10-07] MEDS: POTASSIUM CHLORIDE 20 MEQ POWDER FOR ORAL SOLN NGT (08:58)
[2017-10-07] MEDS: FUROSEMIDE 40 MG INJ IV ×2 (08:58→20:34)
[2017-10-07] MEDS: ENOXAPARIN 80 MG/0.8 ML SYG SC (09:00)
[2017-10-07 09:43] LABS: AADO2 Arterial 370.9 mmHg (7.0-24.0); Allen Test ACCEPTAB; Arterial Base Excess 6.5 mmol/L (-3.0-3); Arterial Blood Gas Oxygen Sat 89.5 mmHG (95.0-100.0); Arterial COHb 0.3 % (0.0-3.0); Arterial Fraction of Oxyhgb 89.1 % (93.0-99.0); Arterial HCO3 33.9 mmol/L (22.0-26.0); Arterial MetHb 0.2 % (0.0-1.5); Arterial Total Hemglobin 11.4 g/dl (12.0-18.0); Arterial pCO2 64.2 mmhg (35-45); MODE VENT - AC; Site Right Radial
[2017-10-07] MEDS: morphine 2 MG INJ IV (10:19)
[2017-10-07] MEDS: LORAZEPAM 2 MG INJ IV (10:35)
[2017-10-07] MEDS: CASPOFUNGIN 50 MG in SOD CHLORIDE 0.9% 250 ML IVPB (12:13)
[2017-10-07] MEDS: DILTIAZEM 60 MG TAB GTB ×2 (14:22→22:06)
[2017-10-08] MEDS: INSULIN ASPART [NOVOLOG] 3 ML PEN SC ×6 (01:22→20:47)
[2017-10-08] MEDS: ACCU-CHEK XX (01:23)
[2017-10-08] MEDS: ALBUTEROL HFA 8 GM INHALER INH ×4 (02:05→19:30)
[2017-10-08] MEDS: PROPOFOL 100 ML IV ×6 (03:15→23:13)
[2017-10-08] MEDS: DILTIAZEM 60 MG TAB GTB ×3 (05:24→21:57)
[2017-10-08 06:25] LABS: ANION GAP 13 (8-16); BLOOD UREA NITROGEN 68 mg/dl (7-20); CALCIUM 8.9 mg/dl (8.4-10.2); CARBON DIOXIDE 34 mmol/L (21-31); CHLORIDE 101 mmol/L (97-110); CREATININE 1.15 mg/dl (0.61-1.24); GLUCOSE 167 mg/dl (70-220); POTASSIUM 4.4 mmol/L (3.5-5.1); SODIUM 144 mmol/L (135-144)
[2017-10-08 06:27] LABS: MAGNESIUM 2.1 mg/dl (1.7-2.5)
[2017-10-08] MEDS: IPRATROPIUM (HFA) 12.9 GM INHALER INH ×3 (08:18→19:30)
[2017-10-08] MEDS: FUROSEMIDE 40 MG INJ IV (08:40)
[2017-10-08] MEDS: POTASSIUM CHLORIDE 20 MEQ POWDER FOR ORAL SOLN NGT (08:40)
[2017-10-08] MEDS: METHYLPREDNISOLONE 40 MG INJ IV ×2 (08:40→20:42)
[2017-10-08] MEDS: ENOXAPARIN 80 MG/0.8 ML SYG SC (08:43)
[2017-10-08] MEDS: BALSAM PERU/CASTOR OIL 60 GM TUBE TOP ×2 (08:44→20:58)
[2017-10-08] MEDS: FAMOTIDINE 20 MG TAB NGT (08:45)
[2017-10-08] MEDS: CASPOFUNGIN 50 MG in SOD CHLORIDE 0.9% 250 ML IVPB (11:40)
[2017-10-08] MEDS: BUMETANIDE 25 MG in DEXTROSE 5% 150 ML IV (12:45)
[2017-10-08 12:58] LABS: ADD MAN DIFF? NO
[2017-10-08 13:02] LABS: WHITE BLOOD COUNT 21.1 10^3/ul (4.8-10.8)
[2017-10-08 13:02] LABS: ABNORMAL IP MESSAGE 1; BASOPHILS % 0.1 % (0.0-2.0); HEMOGLOBIN 9.1 g/dl (14.0-18.0); LYMPHOCYTES # 0.7 10^3/ul (0.8-2.9); LYMPHOCYTES % 3.4 % (15.0-51.0); MEAN CORPUSCULAR HEMOGLOBIN 28.7 pg (29.0-33.0); MEAN CORPUSCULAR HGB CONC 29.4 g/dl (32.0-37.0); MEAN CORPUSCULAR VOLUME 97.8 fl (82.0-101.0); MEAN PLATELET VOLUME 10.7 fl (7.4-10.4); MONOCYTE # 1.1 10^3/ul (0.3-0.9); MONOCYTES % 5.1 % (0.0-11.0); NEUTROPHIL # 18.2 10^3/ul (1.6-7.5); NEUTROPHILS % 86.2 % (39.0-77.0); NUCLEATED RED BLOOD CELLS # 0.1 10^3/ul (0.0-0.0); NUCLEATED RED BLOOD CELLS% 0.2 /100WBC (0.0-0.0); PLATELET COUNT 260 10^3/UL (140-415); POSITIVE DIFF @See below; RED BLOOD COUNT 3.17 10^6/ul (4.70-6.10); RED CELL DISTRIBUTION WIDTH 14.8 % (11.5-14.5)
[2017-10-08 13:13] LABS: ASPARTATE AMINO TRANSFERASE 29 IU/L (15-46)
[2017-10-08 13:13] LABS: ALBUMIN 2.8 g/dl (3.3-4.9)
[2017-10-08 13:27] LABS: CK-MB 0.56 ng/ml (0.0-2.4)
[2017-10-08] MEDS: POTASSIUM CHLORIDE (SR) 20 MEQ TAB PO (20:42)
[2017-10-09] MEDS: ALBUTEROL HFA 8 GM INHALER INH ×4 (01:23→19:41)
[2017-10-09] MEDS: IPRATROPIUM (HFA) 12.9 GM INHALER INH ×4 (01:23→19:41)
[2017-10-09] MEDS: INSULIN ASPART [NOVOLOG] 3 ML PEN SC ×6 (01:44→21:00)
[2017-10-09] MEDS: ACCU-CHEK XX (01:44)
[2017-10-09 02:16] LABS: ANION GAP 15 (8-16); BLOOD UREA NITROGEN 73 mg/dl (7-20); CALCIUM 8.9 mg/dl (8.4-10.2); CARBON DIOXIDE 34 mmol/L (21-31); CHLORIDE 99 mmol/L (97-110); CREATININE 1.27 mg/dl (0.61-1.24); GLUCOSE 212 mg/dl (70-220); MAGNESIUM 1.8 mg/dl (1.7-2.5); POTASSIUM 4.9 mmol/L (3.5-5.1); SODIUM 143 mmol/L (135-144)
[2017-10-09] MEDS: PROPOFOL 100 ML IV ×4 (03:36→22:56)
[2017-10-09 04:41] LABS: AADO2 Arterial 594.1 mmHg (7.0-24.0); Allen Test ACCEPTAB; Arterial Base Excess 5.1 mmol/L (-3.0-3); Arterial Blood Gas Oxygen Sat 89.5 mmHG (95.0-100.0); Arterial COHb 0.3 % (0.0-3.0); Arterial Fraction of Oxyhgb 88.9 % (93.0-99.0); Arterial HCO3 32.2 mmol/L (22.0-26.0); Arterial MetHb 0.4 % (0.0-1.5); Arterial Total Hemglobin 11.3 g/dl (12.0-18.0); Arterial pCO2 60.6 mmhg (35-45); MODE VENT - VC+; Site Right Radial
[2017-10-09] MEDS: SOD CHLORIDE 0.9% 500 ML IV (05:32)
[2017-10-09] MEDS: DILTIAZEM 60 MG TAB GTB (05:35)
[2017-10-09 06:24] LABS: WHITE BLOOD COUNT 64.6 10^3/ul (4.8-10.8)
[2017-10-09 06:24] LABS: ABNORMAL IP MESSAGE 1; HEMATOCRIT 31.8 % (42.0-52.0); MEAN CORPUSCULAR HEMOGLOBIN 29.9 pg (29.0-33.0); MEAN CORPUSCULAR HGB CONC 31.4 g/dl (32.0-37.0); MEAN CORPUSCULAR VOLUME 94.9 fl (82.0-101.0); MEAN PLATELET VOLUME 10.9 fl (7.4-10.4); NUCLEATED RED BLOOD CELLS% 0.1 /100WBC (0.0-0.0); PLATELET COUNT 265 10^3/UL (140-415); POSITIVE DIFF @See below; RED BLOOD COUNT 3.35 10^6/ul (4.70-6.10); RED CELL DISTRIBUTION WIDTH 15.4 % (11.5-14.5)
[2017-10-09 06:50] LABS: TROPONIN-I 0.072 ng/ml (0.00-0.12)
[2017-10-09 06:50] LABS: ADD MAN DIFF? YES
[2017-10-09] MEDS: POTASSIUM CHLORIDE 20 MEQ POWDER FOR ORAL SOLN PO ×2 (08:06→21:03)
[2017-10-09] MEDS: SOD CHLORIDE 0.9% 1,000 ML IV ×2 (08:06→15:41)
[2017-10-09] MEDS: FAMOTIDINE 20 MG TAB NGT (08:06)
[2017-10-09] MEDS: METHYLPREDNISOLONE 40 MG INJ IV ×2 (08:06→21:03)
[2017-10-09] MEDS: ENOXAPARIN 80 MG/0.8 ML SYG SC (08:07)
[2017-10-09] MEDS: BALSAM PERU/CASTOR OIL 60 GM TUBE TOP ×2 (08:08→21:03)
[2017-10-09 08:12] LABS: ANISOCYTOSIS 2+ (0-0); BAND NEUTROPHILS #M 5.8 10^3/ul (0.0-0.6); BAND NEUTROPHILS % (M) 9 % (0-4); LYMPHOCYTES #M 0.6 10^3/ul (0.8-2.9); LYMPHOCYTES % (M) 1 % (15-51); MICROCYTOSIS 2+ (0-0); MONOCYTE #M 2.5 10^3/ul (0.3-0.9); MONOCYTES % (M) 4 % (0-11); MYELOCYTES #M 0.6 10^3/ul (0.0-0.0); MYELOCYTES % (M) 1 % (0-0); PLATELET ESTIMATE NORMAL; POLYCHROMASIA 3+ (0-0); PROMYELOCYTES #M 0.6 10^3/ul (0-0); PROMYELOCYTES % (M) 1 % (0-0); SEGMENTED NEUTROPHILS (M) % 84 % (39-77); SMUDGE%M 3 % (0-0)
[2017-10-09] MEDS: CEFTAZIDIME 1GM/50 ML (PMX) 50 ML IVPB ×2 (09:10→22:07)
[2017-10-09] MEDS: VANCOMYCIN 1 GM (PMX) 250 ML IVPB (09:51)
[2017-10-09] MEDS: TOBRAMYCIN IV PER PHARMACY XX (10:00)
[2017-10-09] MEDS: CASPOFUNGIN 50 MG in SOD CHLORIDE 0.9% 250 ML IVPB (11:59)
[2017-10-09] MEDS: DEXTROSE 5% IVPB (12:13)
[2017-10-09] MEDS: TOBRAMYCIN IVPB (12:13)
[2017-10-09] MEDS: LORAZEPAM 2 MG INJ IV (12:19)
[2017-10-09 13:52] LABS: TROPONIN-I 0.107 ng/ml (0.00-0.12)
[2017-10-09] MEDS: LINEZOLID 600 MG/D5W (PMX) 300 ML IVPB (21:03)
[2017-10-10] MEDS: INSULIN ASPART [NOVOLOG] 3 ML PEN SC ×6 (01:10→20:59)
[2017-10-10] MEDS: ACCU-CHEK XX (01:12)
[2017-10-10] MEDS: ALBUTEROL HFA 8 GM INHALER INH ×4 (01:20→19:28)
[2017-10-10] MEDS: IPRATROPIUM (HFA) 12.9 GM INHALER INH ×4 (01:20→19:28)
[2017-10-10] MEDS: PROPOFOL 100 ML IV ×4 (03:32→21:49)
[2017-10-10] MEDS: SOD CHLORIDE 0.9% 1,000 ML IV (05:48)
[2017-10-10] MEDS ORDERED: LORAZEPAM 2 MG INJ IV (07:00)
[2017-10-10 07:08] LABS: ABNORMAL IP MESSAGE 1; HEMATOCRIT 25.9 % (42.0-52.0); HEMOGLOBIN 7.9 g/dl (14.0-18.0); MEAN CORPUSCULAR HEMOGLOBIN 29.6 pg (29.0-33.0); MEAN CORPUSCULAR HGB CONC 30.5 g/dl (32.0-37.0); PLATELET COUNT 163 10^3/UL (140-415); POSITIVE DIFF @See below; RED BLOOD COUNT 2.67 10^6/ul (4.70-6.10); RED CELL DISTRIBUTION WIDTH 15.5 % (11.5-14.5)
[2017-10-10 07:08] LABS: WHITE BLOOD COUNT 30.4 10^3/ul (4.8-10.8)
[2017-10-10 07:12] LABS: ADD MAN DIFF? YES
[2017-10-10 09:21] LABS: ANION GAP 16 (8-16); BLOOD UREA NITROGEN 89 mg/dl (7-20); CALCIUM 8.3 mg/dl (8.4-10.2); CARBON DIOXIDE 30 mmol/L (21-31); CHLORIDE 103 mmol/L (97-110); CREATININE 1.96 mg/dl (0.61-1.24); GLUCOSE 120 mg/dl (70-220); PHOSPHORUS 5.1 mg/dl (2.5-4.9); SODIUM 142 mmol/L (135-144)
[2017-10-10 09:23] LABS: POTASSIUM 6.9 mmol/L (3.5-5.1)
[2017-10-10] MEDS: METHYLPREDNISOLONE 40 MG INJ IV ×2 (09:31→20:44)
[2017-10-10] MEDS: CEFTAZIDIME 1GM/50 ML (PMX) 50 ML IVPB ×2 (09:31→20:44)
[2017-10-10] MEDS: FAMOTIDINE 20 MG INJ IV (09:33)
[2017-10-10] MEDS: EPOETIN 10000 UNITS/1 ML INJ (ESRD) SC (09:33)
[2017-10-10] MEDS: BALSAM PERU/CASTOR OIL 60 GM TUBE TOP ×2 (09:33→20:48)
[2017-10-10] MEDS: ENOXAPARIN 80 MG/0.8 ML SYG SC (09:34)
[2017-10-10 09:58] LABS: ANISOCYTOSIS 1+ (0-0); BAND NEUTROPHILS #M 2.7 10^3/ul (0.0-0.6); BAND NEUTROPHILS % (M) 9 % (0-4); EOSINOPHILS % (M) 2 % (0-7); HYPOCHROMASIA 1+ (0-0); LYMPHOCYTES #M 0.9 10^3/ul (0.8-2.9); LYMPHOCYTES % (M) 3 % (15-51); PLATELET ESTIMATE NORMAL; POLYCHROMASIA 1+ (0-0); SEGMENTED NEUTROPHILS (M) % 86 % (39-77); SMUDGE%M 1 % (0-0)
[2017-10-10] MEDS: FUROSEMIDE 40 MG INJ IV (09:58)
[2017-10-10] MEDS: CASPOFUNGIN 50 MG in SOD CHLORIDE 0.9% 250 ML IVPB (11:55)
[2017-10-10] MEDS: LORAZEPAM 2 MG INJ IV ×2 (13:19→23:18)
[2017-10-10 14:44] LABS: ALANINE AMINOTRANSFERASE 35 IU/L (13-69); ALBUMIN 2.7 g/dl (3.3-4.9); ALBUMIN/GLOBULIN RATIO 0.81; ALKALINE PHOSPHATASE 150 IU/L (42-121); ANION GAP 16 (8-16); ASPARTATE AMINO TRANSFERASE 37 IU/L (15-46); BILIRUBIN,INDIRECT 0.1 mg/dl (0-1.1); BILIRUBIN,TOTAL 0.1 mg/dl (0.2-1.3); BLOOD UREA NITROGEN 93 mg/dl (7-20); CALCIUM 8.5 mg/dl (8.4-10.2); CARBON DIOXIDE 27 mmol/L (21-31); CHLORIDE 104 mmol/L (97-110); CREATININE 1.96 mg/dl (0.61-1.24); GLUCOSE 159 mg/dl (70-220); SODIUM 141 mmol/L (135-144)
[2017-10-10 14:47] LABS: POTASSIUM 6.4 mmol/L (3.5-5.1)
[2017-10-10] MEDS ORDERED: NA POLYST SULFON 15 GM/60 ML BTL PO (15:30)
[2017-10-10] MEDS ORDERED: SORBITOL 70% 30ML CUP PO (15:30)
[2017-10-10] MEDS: NA POLYST SULFON 15 GM/60 ML BTL GTB ×2 (15:41→21:01)
[2017-10-10] MEDS: SORBITOL 70% 30ML CUP GTB (15:43)
[2017-10-10 18:35] LABS: ANION GAP 20 (8-16); BLOOD UREA NITROGEN 91 mg/dl (7-20); CALCIUM 8.2 mg/dl (8.4-10.2); CARBON DIOXIDE 25 mmol/L (21-31); CHLORIDE 105 mmol/L (97-110); CREATININE 1.99 mg/dl (0.61-1.24); GLUCOSE 173 mg/dl (70-220); SODIUM 144 mmol/L (135-144)
[2017-10-10 18:40] LABS: POTASSIUM 6.4 mmol/L (3.5-5.1)
[2017-10-10 19:41] LABS: Allen Test ACCEPTAB; Arterial Base Excess -2.4 mmol/L (-3.0-3); Arterial Blood Gas Oxygen Sat 86.7 mmHG (95.0-100.0); Arterial COHb 0.3 % (0.0-3.0); Arterial Fraction of Oxyhgb 86.2 % (93.0-99.0); Arterial HCO3 25.9 mmol/L (22.0-26.0); Arterial MetHb 0.3 % (0.0-1.5); Arterial Total Hemglobin 10.2 g/dl (12.0-18.0); Arterial pCO2 64.3 mmhg (35-45); MODE VENT - VC+; Site Right Radial
[2017-10-11] MEDS: INSULIN ASPART [NOVOLOG] 3 ML PEN SC ×6 (01:10→21:00)
[2017-10-11] MEDS: ACCU-CHEK XX (01:12)
[2017-10-11] MEDS: ALBUTEROL HFA 8 GM INHALER INH ×4 (01:26→19:48)
[2017-10-11] MEDS: IPRATROPIUM (HFA) 12.9 GM INHALER INH ×3 (01:27→19:47)
[2017-10-11] MEDS: PROPOFOL 100 ML IV ×4 (02:21→21:24)
[2017-10-11 05:48] LABS: ADD MAN DIFF? NO
[2017-10-11 06:10] LABS: ABNORMAL IP MESSAGE 1; BASOPHILS % 0.1 % (0.0-2.0); HEMATOCRIT 23.4 % (42.0-52.0); HEMOGLOBIN 7.1 g/dl (14.0-18.0); LYMPHOCYTES # 0.4 10^3/ul (0.8-2.9); MEAN CORPUSCULAR HEMOGLOBIN 29.6 pg (29.0-33.0); MEAN CORPUSCULAR HGB CONC 30.3 g/dl (32.0-37.0); MEAN CORPUSCULAR VOLUME 97.5 fl (82.0-101.0); MEAN PLATELET VOLUME 11.1 fl (7.4-10.4); MONOCYTE # 0.3 10^3/ul (0.3-0.9); MONOCYTES % 1.3 % (0.0-11.0); NEUTROPHIL # 19.3 10^3/ul (1.6-7.5); NEUTROPHILS % 95.5 % (39.0-77.0); NUCLEATED RED BLOOD CELLS% 0.1 /100WBC (0.0-0.0); PLATELET COUNT 139 10^3/UL (140-415); POSITIVE DIFF @See below; RED CELL DISTRIBUTION WIDTH 15.9 % (11.5-14.5)
[2017-10-11 06:10] LABS: WHITE BLOOD COUNT 20.2 10^3/ul (4.8-10.8)
[2017-10-11 06:14] LABS: ALANINE AMINOTRANSFERASE 35 IU/L (13-69); ALBUMIN 2.7 g/dl (3.3-4.9); ALKALINE PHOSPHATASE 134 IU/L (42-121); ANION GAP 18 (8-16); BLOOD UREA NITROGEN 97 mg/dl (7-20); CALCIUM 8.1 mg/dl (8.4-10.2); CARBON DIOXIDE 27 mmol/L (21-31); CHLORIDE 108 mmol/L (97-110); GLUCOSE 139 mg/dl (70-220); POTASSIUM 5.3 mmol/L (3.5-5.1); SODIUM 148 mmol/L (135-144); TOTAL PROTEIN 5.7 g/dl (6.1-8.1)
[2017-10-11 06:19] LABS: PHOSPHORUS 6.3 mg/dl (2.5-4.9)
[2017-10-11 06:19] LABS: ASPARTATE AMINO TRANSFERASE 28 IU/L (15-46); MAGNESIUM 2.2 mg/dl (1.7-2.5)
[2017-10-11 06:25] LABS: CREATININE 2.36 mg/dl (0.61-1.24)
[2017-10-11 08:36] LABS: AADO2 Arterial 564.6 mmHg (7.0-24.0); Allen Test ACCEPTAB; Arterial Base Excess -0.5 mmol/L (-3.0-3); Arterial COHb 0.3 % (0.0-3.0); Arterial Fraction of Oxyhgb 95.3 % (93.0-99.0); Arterial HCO3 26.5 mmol/L (22.0-26.0); Arterial MetHb 0.4 % (0.0-1.5); Arterial Total Hemglobin 8.3 g/dl (12.0-18.0); Arterial pCO2 57.2 mmhg (35-45); MODE VENT - AC; Site Right Radial
[2017-10-11] MEDS: METHYLPREDNISOLONE 40 MG INJ IV ×2 (08:40→21:04)
[2017-10-11] MEDS: FAMOTIDINE 20 MG INJ IV (08:40)
[2017-10-11] MEDS: ALBUMIN HUMAN 25% 100 ML IV ×4 (08:47→23:01)
[2017-10-11] MEDS: ENOXAPARIN 80 MG/0.8 ML SYG SC (08:51)
[2017-10-11] MEDS: BALSAM PERU/CASTOR OIL 60 GM TUBE TOP ×2 (08:53→21:10)
[2017-10-11] MEDS: CEFTAZIDIME 1GM/50 ML (PMX) 50 ML IVPB (09:48)
[2017-10-11] MEDS: DIGOXIN 500 MCG INJ IV (10:13)
[2017-10-11] MEDS: AMIODARONE 150MG/D5W BOLUS 100 ML IV (10:52)
[2017-10-11] MEDS: AMIODARONE 900 MG in DEXTROSE 5% 482 ML IV (11:58)
[2017-10-11] MEDS: CASPOFUNGIN 50 MG in SOD CHLORIDE 0.9% 250 ML IVPB (12:03)
[2017-10-11] MEDS: ACETAMINOPHEN 325 MG TAB PO (12:19)
[2017-10-11] MEDS ORDERED: AMIKACIN IV PER PHARMACY XX (14:30)
[2017-10-11 14:37] LABS: ANION GAP 20 (8-16); BLOOD UREA NITROGEN 103 mg/dl (7-20); CALCIUM 8.3 mg/dl (8.4-10.2); CARBON DIOXIDE 25 mmol/L (21-31); CHLORIDE 107 mmol/L (97-110); CREATININE 2.72 mg/dl (0.61-1.24); GLUCOSE 172 mg/dl (70-220); SODIUM 147 mmol/L (135-144)
[2017-10-11] MEDS: AMIKACIN 500 MG in SOD CHLORIDE 0.9% 100 ML IVPB (16:38)
[2017-10-11 17:28] LABS: ADD UMIC YES; UR ASCORBIC ACID NEGATIVE (NEGATIVE); UR BILIRUBIN (Dip) NEGATIVE (NEGATIVE); UR BLOOD (Dip) 2+ mg/dL (NEGATIVE); UR CLARITY CLOUDY (CLEAR); UR COLOR YELLOW (YELLOW); UR GLUCOSE (Dip) NEGATIVE (NEGATIVE); UR KETONES (Dip) NEGATIVE (NEGATIVE); UR LEUKOCYTE ESTERASE (Dip) NEGATIVE Leu/ul (NEGATIVE); UR NITRITE (Dip) NEGATIVE (NEGATIVE); UR RBC 10 /HPF (0-5); UR SPECIFIC GRAVITY (Dip) 1.018 (1.003-1.030); UR TOTAL PROTEIN (Dip) 2+ mg/dl (NEGATIVE); UR UROBILINOGEN (Dip) NEGATIVE (NEGATIVE); UR WBC 0 /HPF (0-5)
[2017-10-11 17:52] LABS: SODIUM,URINE RANDOM 55 mmol/L (30-90)
[2017-10-11 17:52] LABS: CREATININE,URINE RANDOM 58.75 mg/dl (20-370)
[2017-10-12] MEDS: INSULIN ASPART [NOVOLOG] 3 ML PEN SC ×6 (00:41→20:44)
[2017-10-12] MEDS: IPRATROPIUM (HFA) 12.9 GM INHALER INH ×3 (01:33→20:36)
[2017-10-12] MEDS: ALBUTEROL HFA 8 GM INHALER INH ×4 (01:33→20:36)
[2017-10-12] MEDS: ACCU-CHEK XX (02:00)
[2017-10-12] MEDS: PROPOFOL 100 ML IV ×4 (04:13→20:00)
[2017-10-12 06:43] LABS: Allen Test ACCEPTAB; Arterial Base Excess -2.6 mmol/L (-3.0-3); Arterial Blood Gas Oxygen Sat 77.8 mmHG (95.0-100.0); Arterial COHb 0.3 % (0.0-3.0); Arterial Fraction of Oxyhgb 77.1 % (93.0-99.0); Arterial HCO3 24.8 mmol/L (22.0-26.0); Arterial MetHb 0.6 % (0.0-1.5); Arterial Total Hemglobin 6.9 g/dl (12.0-18.0); Arterial pCO2 59.5 mmhg (35-45); MODE AMBU BAG; Site Left Radial
[2017-10-12 08:04] LABS: ABNORMAL IP MESSAGE 1; MEAN CORPUSCULAR HEMOGLOBIN 29.9 pg (29.0-33.0); MEAN CORPUSCULAR HGB CONC 30.5 g/dl (32.0-37.0); MEAN CORPUSCULAR VOLUME 97.9 fl (82.0-101.0); MEAN PLATELET VOLUME 11.5 fl (7.4-10.4); NUCLEATED RED BLOOD CELLS% 0.3 /100WBC (0.0-0.0); PLATELET COUNT 119 10^3/UL (140-415); POSITIVE DIFF @See below; RED BLOOD COUNT 1.94 10^6/ul (4.70-6.10); RED CELL DISTRIBUTION WIDTH 16.4 % (11.5-14.5)
[2017-10-12 08:12] LABS: ANION GAP 20 (8-16); BLOOD UREA NITROGEN 114 mg/dl (7-20); CALCIUM 8.4 mg/dl (8.4-10.2); CARBON DIOXIDE 25 mmol/L (21-31); CHLORIDE 105 mmol/L (97-110); CREATININE 2.72 mg/dl (0.61-1.24); GLUCOSE 135 mg/dl (70-220); MAGNESIUM 2.1 mg/dl (1.7-2.5); PHOSPHORUS 6.9 mg/dl (2.5-4.9); POTASSIUM 4.4 mmol/L (3.5-5.1); SODIUM 146 mmol/L (135-144)
[2017-10-12 08:23] LABS: ADD MAN DIFF? YES; HEMOGLOBIN 5.8 g/dl (14.0-18.0)
[2017-10-12] MEDS: BALSAM PERU/CASTOR OIL 60 GM TUBE TOP ×2 (09:00→20:41)
[2017-10-12] MEDS: FAMOTIDINE 20 MG INJ IV (10:10)
[2017-10-12] MEDS: METHYLPREDNISOLONE 40 MG INJ IV ×2 (10:10→20:41)
[2017-10-12 10:40] LABS: INR 1.48; PROTIME 18.2 Sec (11.9-14.9); PT RATIO 1.4
[2017-10-12 10:41] LABS: PARTIAL THROMBOPLASTIN TIME 39.9 Sec (25.0-35.0)
[2017-10-12 10:50] LABS: AADO2 Arterial 564.6 mmHg (7.0-24.0); Allen Test ACCEPTAB; Arterial Base Excess -4.8 mmol/L (-3.0-3); Arterial Blood Gas Oxygen Sat 92.4 mmHG (95.0-100.0); Arterial COHb 0.3 % (0.0-3.0); Arterial Fraction of Oxyhgb 91.7 % (93.0-99.0); Arterial HCO3 24.3 mmol/L (22.0-26.0); Arterial MetHb 0.5 % (0.0-1.5); Arterial Total Hemglobin 8.4 g/dl (12.0-18.0); Arterial pCO2 71.1 mmhg (35-45); MODE VENT - PC; Site Right Radial
[2017-10-12 11:53] LABS: IMMEDIATE SPIN CROSSMATCH 1 5
[2017-10-12] MEDS: CASPOFUNGIN 50 MG in SOD CHLORIDE 0.9% 250 ML IVPB (13:07)
[2017-10-12] MEDS: AMIODARONE 200 MG TAB PO ×2 (13:14→20:42)
[2017-10-12 20:43] LABS: HEMATOCRIT 25.4 % (42.0-52.0); HEMOGLOBIN 8.2 g/dl (14.0-18.0)
[2017-10-13] MEDS: PROPOFOL 100 ML IV ×4 (00:16→16:46)
[2017-10-13] MEDS: INSULIN ASPART [NOVOLOG] 3 ML PEN SC ×6 (00:42→21:26)
[2017-10-13] MEDS: ACCU-CHEK XX (02:00)
[2017-10-13] MEDS: IPRATROPIUM (HFA) 12.9 GM INHALER INH ×4 (02:03→20:37)
[2017-10-13] MEDS: ALBUTEROL HFA 8 GM INHALER INH ×4 (02:03→20:38)
[2017-10-13 05:45] LABS: WHITE BLOOD COUNT 14.1 10^3/ul (4.8-10.8)
[2017-10-13 05:45] LABS: ABNORMAL IP MESSAGE 1; HEMATOCRIT 24.1 % (42.0-52.0); HEMOGLOBIN 7.7 g/dl (14.0-18.0); MEAN CORPUSCULAR HEMOGLOBIN 29.1 pg (29.0-33.0); MEAN CORPUSCULAR VOLUME 90.9 fl (82.0-101.0); MEAN PLATELET VOLUME 11.5 fl (7.4-10.4); NUCLEATED RED BLOOD CELLS% 0.3 /100WBC (0.0-0.0); PLATELET COUNT 117 10^3/UL (140-415); POSITIVE DIFF @See below; RED BLOOD COUNT 2.65 10^6/ul (4.70-6.10); RED CELL DISTRIBUTION WIDTH 17.2 % (11.5-14.5)
[2017-10-13 06:01] LABS: ADD MAN DIFF? YES
[2017-10-13 06:37] LABS: ALANINE AMINOTRANSFERASE 37 IU/L (13-69); ALBUMIN/GLOBULIN RATIO 1.11; ALKALINE PHOSPHATASE 135 IU/L (42-121); ANION GAP 23 (8-16); ASPARTATE AMINO TRANSFERASE 29 IU/L (15-46); BLOOD UREA NITROGEN 119 mg/dl (7-20); CALCIUM 8.2 mg/dl (8.4-10.2); CARBON DIOXIDE 22 mmol/L (21-31); CHLORIDE 104 mmol/L (97-110); GLUCOSE 121 mg/dl (70-220); POTASSIUM 4.3 mmol/L (3.5-5.1); SODIUM 145 mmol/L (135-144); TOTAL PROTEIN 5.7 g/dl (6.1-8.1)
[2017-10-13 06:43] LABS: CREATININE 3.07 mg/dl (0.61-1.24)
[2017-10-13 07:34] LABS: ANISOCYTOSIS 1+ (0-0); BAND NEUTROPHILS #M 1.5 10^3/ul (0.0-0.6); BAND NEUTROPHILS % (M) 11 % (0-4); EOSINOPHILS % (M) 2 % (0-7); LYMPHOCYTES #M 0.1 10^3/ul (0.8-2.9); LYMPHOCYTES % (M) 1 % (15-51); MONOCYTE #M 0.1 10^3/ul (0.3-0.9); MONOCYTES % (M) 1 % (0-11); MYELOCYTES #M 0.1 10^3/ul (0.0-0.0); MYELOCYTES % (M) 1 % (0-0); PLATELET ESTIMATE DECREASED; POLYCHROMASIA 1+ (0-0); SEG NEUT #M 12.1 10^3/ul (1.7-7.5); SEGMENTED NEUTROPHILS (M) % 84 % (39-77); SMUDGE%M 4 % (0-0)
[2017-10-13 08:15] LABS: AADO2 Arterial 559.3 mmHg (7.0-24.0); Allen Test ACCEPTAB; Arterial Base Excess -5.2 mmol/L (-3.0-3); Arterial Blood Gas Oxygen Sat 97.1 mmHG (95.0-100.0); Arterial COHb 0 % (0.0-3.0); Arterial Fraction of Oxyhgb 96.7 % (93.0-99.0); Arterial HCO3 21.4 mmol/L (22.0-26.0); Arterial MetHb 0.4 % (0.0-1.5); Arterial Total Hemglobin 8.5 g/dl (12.0-18.0); Arterial pCO2 47.3 mmhg (35-45); MODE VENT - PC; Site Right Radial
[2017-10-13] MEDS: BALSAM PERU/CASTOR OIL 60 GM TUBE TOP ×2 (09:00→21:09)
[2017-10-13] MEDS: METHYLPREDNISOLONE 40 MG INJ IV ×2 (09:50→21:09)
[2017-10-13] MEDS: FAMOTIDINE 20 MG INJ IV (09:50)
[2017-10-13] MEDS: AMIODARONE 200 MG TAB PO ×2 (09:51→21:09)
[2017-10-13] MEDS: FUROSEMIDE 40 MG INJ IV ×2 (11:46→19:25)
[2017-10-13] MEDS: CASPOFUNGIN 50 MG in SOD CHLORIDE 0.9% 250 ML IVPB (12:28)
[2017-10-13 13:52] LABS: CREATININE, RANDOM URINE 69 mg/dL (20-370); MICROALBUMIN 13.5 mg/dL; MICROALBUMIN/CREATININE RATIO 196 (<30)
[2017-10-13] MEDS: COLLAGENASE 30 GM TUBE TOP (18:30)
[2017-10-13 21:12] LABS: AMIKACIN RANDOM 11.7 mg/L
[2017-10-14] MEDS: INSULIN ASPART [NOVOLOG] 3 ML PEN SC ×6 (01:12→20:44)
[2017-10-14] MEDS: ACCU-CHEK XX (01:13)
[2017-10-14] MEDS: PROPOFOL 100 ML IV ×4 (02:18→22:43)
[2017-10-14] MEDS: ALBUTEROL HFA 8 GM INHALER INH ×4 (02:59→19:26)
[2017-10-14] MEDS: IPRATROPIUM (HFA) 12.9 GM INHALER INH ×2 (02:59→19:26)
[2017-10-14 05:44] LABS: WHITE BLOOD COUNT 14.8 10^3/ul (4.8-10.8)
[2017-10-14 05:44] LABS: ABNORMAL IP MESSAGE 1; HEMATOCRIT 28.6 % (42.0-52.0); HEMOGLOBIN 9.5 g/dl (14.0-18.0); MEAN CORPUSCULAR HEMOGLOBIN 29.4 pg (29.0-33.0); MEAN CORPUSCULAR HGB CONC 33.2 g/dl (32.0-37.0); MEAN CORPUSCULAR VOLUME 88.5 fl (82.0-101.0); MEAN PLATELET VOLUME 11.4 fl (7.4-10.4); NUCLEATED RED BLOOD CELLS% 0.6 /100WBC (0.0-0.0); PLATELET COUNT 126 10^3/UL (140-415); POSITIVE DIFF @See below; RED BLOOD COUNT 3.23 10^6/ul (4.70-6.10); RED CELL DISTRIBUTION WIDTH 16.7 % (11.5-14.5)
[2017-10-14] MEDS: FUROSEMIDE 40 MG INJ IV ×2 (06:08→17:32)
[2017-10-14 06:40] LABS: ANION GAP 24 (8-16); CALCIUM 7.9 mg/dl (8.4-10.2); CARBON DIOXIDE 18 mmol/L (21-31); CHLORIDE 103 mmol/L (97-110); GLUCOSE 145 mg/dl (70-220); POTASSIUM 4.4 mmol/L (3.5-5.1); SODIUM 141 mmol/L (135-144)
[2017-10-14 06:52] LABS: ADD MAN DIFF? YES
[2017-10-14 06:53] LABS: BLOOD UREA NITROGEN 131 mg/dl (7-20); CREATININE 3.28 mg/dl (0.61-1.24)
[2017-10-14] MEDS ORDERED: HEPARIN 1000 UNITS/ML 10 ML INJ ×2 (08:04→08:29)
[2017-10-14] MEDS ORDERED: HEPARIN (10 UNITS/ML) 5ML SYG (08:28)
[2017-10-14] MEDS: COLLAGENASE 30 GM TUBE TOP (09:00)
[2017-10-14] MEDS: BALSAM PERU/CASTOR OIL 60 GM TUBE TOP ×2 (09:00→20:49)
[2017-10-14 09:22] LABS: AADO2 Arterial 513.4 mmHg (7.0-24.0); Allen Test ACCEPTAB; Arterial Base Excess -7.9 mmol/L (-3.0-3); Arterial Blood Gas Oxygen Sat 94.8 mmHG (95.0-100.0); Arterial COHb 0.3 % (0.0-3.0); Arterial Fraction of Oxyhgb 94.3 % (93.0-99.0); Arterial HCO3 18.9 mmol/L (22.0-26.0); Arterial MetHb 0.2 % (0.0-1.5); Arterial Total Hemglobin 10.1 g/dl (12.0-18.0); MODE VENT - AC; Site Right Radial
[2017-10-14] MEDS: FAMOTIDINE 20 MG INJ IV (09:39)
[2017-10-14] MEDS: AMIODARONE 200 MG TAB PO ×2 (09:45→20:43)
[2017-10-14] MEDS: METHYLPREDNISOLONE 40 MG INJ IV ×2 (09:45→20:43)
[2017-10-14 10:44] LABS: ANISOCYTOSIS 1+ (0-0); BURR CELLS 1+ (0-0); ERYTHROBLAST% (NRBC) (M) 1 % (0-0); LYMPHOCYTES #M 0.2 10^3/ul (0.8-2.9); LYMPHOCYTES % (M) 2 % (15-51); MONOCYTE #M 0.1 10^3/ul (0.3-0.9); MONOCYTES % (M) 1 % (0-11); OVALOCYTES 1+ (0-0); PLATELET ESTIMATE DECREASED; POIKILOCYTOSIS 1+ (0-0); POLYCHROMASIA 1+ (0-0); SEGMENTED NEUTROPHILS (M) % 97 % (39-77); SMUDGE%M 4 % (0-0)
[2017-10-14 10:52] LABS: PHOSPHORUS 9.5 mg/dl (2.5-4.9)
[2017-10-14] MEDS: CASPOFUNGIN 50 MG in SOD CHLORIDE 0.9% 250 ML IVPB (12:14)
[2017-10-14] MEDS ORDERED: ALBUMIN HUMAN 25% 100 ML (14:45)
[2017-10-14] MEDS: AMIKACIN 500 MG in SOD CHLORIDE 0.9% 100 ML IVPB (17:30)
[2017-10-15] MEDS: INSULIN ASPART [NOVOLOG] 3 ML PEN SC ×6 (01:09→20:27)
[2017-10-15] MEDS: ACCU-CHEK XX (01:10)
[2017-10-15] MEDS: IPRATROPIUM (HFA) 12.9 GM INHALER INH ×4 (01:20→19:39)
[2017-10-15] MEDS: ALBUTEROL HFA 8 GM INHALER INH ×4 (01:20→19:39)
[2017-10-15] MEDS: PROPOFOL 100 ML IV ×3 (04:31→23:38)
[2017-10-15] MEDS: FUROSEMIDE 40 MG INJ IV ×2 (05:34→17:26)
[2017-10-15 06:41] LABS: WHITE BLOOD COUNT 10.8 10^3/ul (4.8-10.8)
[2017-10-15 06:41] LABS: ABNORMAL IP MESSAGE 1; HEMATOCRIT 26.6 % (42.0-52.0); HEMOGLOBIN 8.8 g/dl (14.0-18.0); MEAN CORPUSCULAR HEMOGLOBIN 29.4 pg (29.0-33.0); MEAN CORPUSCULAR HGB CONC 33.1 g/dl (32.0-37.0); MEAN PLATELET VOLUME 11.2 fl (7.4-10.4); NUCLEATED RED BLOOD CELLS% 0.2 /100WBC (0.0-0.0); PLATELET COUNT 113 10^3/UL (140-415); POSITIVE DIFF @See below; RED BLOOD COUNT 2.99 10^6/ul (4.70-6.10)
[2017-10-15 07:03] LABS: ANION GAP 23 (8-16); BLOOD UREA NITROGEN 95 mg/dl (7-20); CALCIUM 7.7 mg/dl (8.4-10.2); CARBON DIOXIDE 21 mmol/L (21-31); CHLORIDE 104 mmol/L (97-110); GLUCOSE 132 mg/dl (70-220); POTASSIUM 3.7 mmol/L (3.5-5.1); SODIUM 144 mmol/L (135-144)
[2017-10-15 07:10] LABS: CREATININE 2.82 mg/dl (0.61-1.24)
[2017-10-15 07:29] LABS: ADD MAN DIFF? YES
[2017-10-15] MEDS: METHYLPREDNISOLONE 40 MG INJ IV ×2 (08:18→20:24)
[2017-10-15] MEDS: FAMOTIDINE 20 MG INJ IV (08:19)
[2017-10-15] MEDS: AMIODARONE 200 MG TAB PO ×2 (08:19→20:24)
[2017-10-15 10:00] LABS: Allen Test ACCEPTAB; Arterial Base Excess -5.5 mmol/L (-3.0-3); Arterial Blood Gas Oxygen Sat 96.9 mmHG (95.0-100.0); Arterial COHb 0.3 % (0.0-3.0); Arterial Fraction of Oxyhgb 96.3 % (93.0-99.0); Arterial HCO3 22.2 mmol/L (22.0-26.0); Arterial MetHb 0.3 % (0.0-1.5); Arterial Total Hemglobin 8.9 g/dl (12.0-18.0); Arterial pCO2 55.6 mmhg (35-45); MODE VENT - PC; Site Right Radial
[2017-10-15 10:42] LABS: ANISOCYTOSIS 1+ (0-0); BAND NEUTROPHILS #M 0.8 10^3/ul (0.0-0.6); BAND NEUTROPHILS % (M) 8 % (0-4); LYMPHOCYTES #M 0.1 10^3/ul (0.8-2.9); LYMPHOCYTES % (M) 1 % (15-51); MONOCYTE #M 0.2 10^3/ul (0.3-0.9); MONOCYTES % (M) 2 % (0-11); MYELOCYTES #M 0.1 10^3/ul (0.0-0.0); MYELOCYTES % (M) 1 % (0-0); PLATELET ESTIMATE NORMAL; POLYCHROMASIA 1+ (0-0); SEG NEUT #M 9.6 10^3/ul (1.7-7.5); SEGMENTED NEUTROPHILS (M) % 88 % (39-77); SMUDGE%M 2 % (0-0)
[2017-10-15] MEDS: POTASSIUM CHLORIDE (SR) 20 MEQ TAB PO (13:24)
[2017-10-15] MEDS: MULTIVIT/CA CARB/B CMPLX/FA TAB NGT (13:24)
[2017-10-15] MEDS: CASPOFUNGIN 50 MG in SOD CHLORIDE 0.9% 250 ML IVPB (13:28)
[2017-10-15] MEDS: ALBUMIN HUMAN 25% 100 ML IV (13:32)
[2017-10-15 16:02] LABS: Allen Test ACCEPTAB; Arterial Base Excess -1.2 mmol/L (-3.0-3); Arterial Blood Gas Oxygen Sat 94.2 mmHG (95.0-100.0); Arterial COHb 0.4 % (0.0-3.0); Arterial Fraction of Oxyhgb 93.5 % (93.0-99.0); Arterial HCO3 25.7 mmol/L (22.0-26.0); Arterial MetHb 0.3 % (0.0-1.5); Arterial Total Hemglobin 10.7 g/dl (12.0-18.0); Arterial pCO2 53.8 mmhg (35-45); MODE VENT - AC; Site Right Radial
[2017-10-15] MEDS: COLLAGENASE 30 GM TUBE TOP (17:12)
[2017-10-15] MEDS: BALSAM PERU/CASTOR OIL 60 GM TUBE TOP ×2 (17:12→20:31)
[2017-10-15] MEDS: SEVELAMER 400 MG TAB PO (17:25)
[2017-10-16] MEDS: IPRATROPIUM (HFA) 12.9 GM INHALER INH ×4 (01:27→19:23)
[2017-10-16] MEDS: ALBUTEROL HFA 8 GM INHALER INH ×4 (01:27→19:23)
[2017-10-16] MEDS: INSULIN ASPART [NOVOLOG] 3 ML PEN SC ×6 (01:41→21:00)
[2017-10-16] MEDS: ACCU-CHEK XX (01:41)
[2017-10-16 05:03] LABS: ADD MAN DIFF? NO
[2017-10-16 05:11] LABS: WHITE BLOOD COUNT 8.9 10^3/ul (4.8-10.8)
[2017-10-16 05:11] LABS: ABNORMAL IP MESSAGE 1; BASOPHILS % 0.1 % (0.0-2.0); HEMATOCRIT 27.7 % (42.0-52.0); LYMPHOCYTES # 0.2 10^3/ul (0.8-2.9); MEAN CORPUSCULAR HEMOGLOBIN 29.1 pg (29.0-33.0); MEAN CORPUSCULAR HGB CONC 32.5 g/dl (32.0-37.0); MEAN CORPUSCULAR VOLUME 89.6 fl (82.0-101.0); MEAN PLATELET VOLUME 10.4 fl (7.4-10.4); MONOCYTE # 0.2 10^3/ul (0.3-0.9); MONOCYTES % 1.8 % (0.0-11.0); NEUTROPHIL # 8.3 10^3/ul (1.6-7.5); NEUTROPHILS % 93.7 % (39.0-77.0); NUCLEATED RED BLOOD CELLS% 0.3 /100WBC (0.0-0.0); PLATELET COUNT 108 10^3/UL (140-415); POSITIVE DIFF @See below; RED BLOOD COUNT 3.09 10^6/ul (4.70-6.10); RED CELL DISTRIBUTION WIDTH 16.9 % (11.5-14.5)
[2017-10-16] MEDS: PROPOFOL 100 ML IV ×3 (05:29→18:45)
[2017-10-16] MEDS: FUROSEMIDE 40 MG INJ IV (05:36)
[2017-10-16 05:45] LABS: ANION GAP 21 (8-16); BLOOD UREA NITROGEN 76 mg/dl (7-20); CALCIUM 8.3 mg/dl (8.4-10.2); CARBON DIOXIDE 23 mmol/L (21-31); CHLORIDE 106 mmol/L (97-110); GLUCOSE 183 mg/dl (70-220); POTASSIUM 4.1 mmol/L (3.5-5.1); SODIUM 146 mmol/L (135-144)
[2017-10-16] MEDS: MULTIVIT/CA CARB/B CMPLX/FA TAB NGT (08:05)
[2017-10-16] MEDS: AMIODARONE 200 MG TAB PO ×2 (08:05→21:59)
[2017-10-16] MEDS: SEVELAMER 400 MG TAB PO ×3 (08:05→16:59)
[2017-10-16] MEDS: COLLAGENASE 30 GM TUBE TOP (08:06)
[2017-10-16] MEDS: METHYLPREDNISOLONE 40 MG INJ IV (08:06)
[2017-10-16] MEDS: BALSAM PERU/CASTOR OIL 60 GM TUBE TOP ×2 (08:06→22:01)
[2017-10-16] MEDS: FAMOTIDINE 20 MG INJ IV (08:10)
[2017-10-16] MEDS: CASPOFUNGIN 50 MG in SOD CHLORIDE 0.9% 250 ML IVPB (12:00)
[2017-10-16] MEDS: AMIKACIN 350 MG in SOD CHLORIDE 0.9% 100 ML IVPB (17:01)
[2017-10-17] MEDS: INSULIN ASPART [NOVOLOG] 3 ML PEN SC ×6 (01:00→21:00)
[2017-10-17] MEDS: IPRATROPIUM (HFA) 12.9 GM INHALER INH ×4 (01:36→19:37)
[2017-10-17] MEDS: ALBUTEROL HFA 8 GM INHALER INH ×4 (01:36→19:37)
[2017-10-17] MEDS: ACCU-CHEK XX (02:00)
[2017-10-17] MEDS: PROPOFOL 100 ML IV (04:17)
[2017-10-17 04:41] LABS: Allen Test ACCEPTAB; Arterial Blood Gas Oxygen Sat 86.5 mmHG (95.0-100.0); Arterial COHb 0.6 % (0.0-3.0); Arterial Fraction of Oxyhgb 85.6 % (93.0-99.0); Arterial HCO3 25.6 mmol/L (22.0-26.0); Arterial MetHb 0.4 % (0.0-1.5); Arterial Total Hemglobin 10.7 g/dl (12.0-18.0); Arterial pCO2 51.3 mmhg (35-45); MODE VENT - PC; Site Left Radial
[2017-10-17 04:45] LABS: ADD MAN DIFF? NO
[2017-10-17 04:49] LABS: WHITE BLOOD COUNT 10.3 10^3/ul (4.8-10.8)
[2017-10-17 04:49] LABS: ABNORMAL IP MESSAGE 1; BASOPHILS % 0.1 % (0.0-2.0); EOSINOPHILS # 0.5 10^3/ul (0.0-0.5); EOSINOPHILS % 5.2 % (0.0-7.0); HEMATOCRIT 28.2 % (42.0-52.0); HEMOGLOBIN 9.3 g/dl (14.0-18.0); LYMPHOCYTES # 0.6 10^3/ul (0.8-2.9); LYMPHOCYTES % 5.4 % (15.0-51.0); MEAN CORPUSCULAR HEMOGLOBIN 29.2 pg (29.0-33.0); MEAN CORPUSCULAR VOLUME 88.4 fl (82.0-101.0); MEAN PLATELET VOLUME 10.7 fl (7.4-10.4); MONOCYTE # 0.1 10^3/ul (0.3-0.9); MONOCYTES % 1.3 % (0.0-11.0); NEUTROPHIL # 8.9 10^3/ul (1.6-7.5); NUCLEATED RED BLOOD CELLS # 0.1 10^3/ul (0.0-0.0); NUCLEATED RED BLOOD CELLS% 0.5 /100WBC (0.0-0.0); PLATELET COUNT 111 10^3/UL (140-415); POSITIVE DIFF @See below; RED BLOOD COUNT 3.19 10^6/ul (4.70-6.10); RED CELL DISTRIBUTION WIDTH 17.1 % (11.5-14.5)
[2017-10-17 05:15] LABS: ANION GAP 24 (8-16); BLOOD UREA NITROGEN 61 mg/dl (7-20); CALCIUM 8.3 mg/dl (8.4-10.2); CARBON DIOXIDE 25 mmol/L (21-31); CHLORIDE 101 mmol/L (97-110); CREATININE 2.03 mg/dl (0.61-1.24); GLUCOSE 110 mg/dl (70-220); POTASSIUM 3.6 mmol/L (3.5-5.1); SODIUM 146 mmol/L (135-144)
[2017-10-17 06:46] LABS: MAGNESIUM 2.1 mg/dl (1.7-2.5)
[2017-10-17 06:46] LABS: PHOSPHORUS 4.4 mg/dl (2.5-4.9)
[2017-10-17] MEDS: morphine 2 MG INJ IV (06:57)
[2017-10-17] MEDS ORDERED: PHENYLephrine 20MG IN 250 ML 250 ML ×2 (07:01→08:17)
[2017-10-17] MEDS: SEVELAMER 400 MG TAB PO ×3 (07:35→17:35)
[2017-10-17] MEDS: MIDAZOLAM (DRIP) 50 mg/50 mL 50 ML IV ×2 (07:42→22:15)
[2017-10-17] MEDS: ACETAMINOPHEN 325 MG TAB PO (08:08)
[2017-10-17] MEDS: BALSAM PERU/CASTOR OIL 60 GM TUBE TOP ×3 (09:00→21:29)
[2017-10-17] MEDS: COLLAGENASE 30 GM TUBE TOP ×2 (09:00)
[2017-10-17] MEDS: MULTIVIT/CA CARB/B CMPLX/FA TAB NGT (09:20)
[2017-10-17] MEDS: AMIODARONE 200 MG TAB PO ×2 (09:21→21:28)
[2017-10-17] MEDS: FAMOTIDINE 20 MG INJ IV (09:21)
[2017-10-17] MEDS: PHENYLephrine 20MG IN 250 ML 250 ML IV (09:25)
[2017-10-17] MEDS: PHENYLephrine 80 MG in DEXTROSE 5% 492 ML IV (09:36)
[2017-10-17] MEDS ORDERED: VANCOMYCIN IV PER PHARMACY XX (11:30)
[2017-10-17] MEDS: CASPOFUNGIN 50 MG in SOD CHLORIDE 0.9% 250 ML IVPB (12:23)
[2017-10-17] MEDS: NORepinephrine 32 MG in DEXTROSE 5% 218 ML IV (13:34)
[2017-10-17 13:40] LABS: ALANINE AMINOTRANSFERASE 48 IU/L (13-69); ALBUMIN 2.9 g/dl (3.3-4.9); ALKALINE PHOSPHATASE 401 IU/L (42-121); ANION GAP 21 (8-16); ASPARTATE AMINO TRANSFERASE 44 IU/L (15-46); BILIRUBIN,INDIRECT 0.1 mg/dl (0-1.1); BILIRUBIN,TOTAL 1.5 mg/dl (0.2-1.3); BLOOD UREA NITROGEN 66 mg/dl (7-20); CALCIUM 8.3 mg/dl (8.4-10.2); CARBON DIOXIDE 23 mmol/L (21-31); CHLORIDE 102 mmol/L (97-110); CREATININE 2.41 mg/dl (0.61-1.24); GLUCOSE 100 mg/dl (70-220); POTASSIUM 3.3 mmol/L (3.5-5.1); SODIUM 143 mmol/L (135-144); TOTAL PROTEIN 6.1 g/dl (6.1-8.1)
[2017-10-17] MEDS: PHENYLephrine 160 MG in DEXTROSE 5% 484 ML IV ×2 (13:52→22:56)
[2017-10-17] MEDS: metroNIDAZOLE 500 MG/NS (PMX) 100 ML IVPB ×2 (14:17→22:00)
[2017-10-17] MEDS: VANCOMYCIN 1.75 GM in SOD CHLORIDE 0.9% 500 ML IVPB (15:42)
[2017-10-17] MEDS: POTASSIUM CHLORIDE 20 MEQ POWDER FOR ORAL SOLN GTB (16:32)
[2017-10-17] MEDS: LIDOCAINE 1% (MPF) 5 ML VIAL SC (17:45)
[2017-10-17] MEDS: SOD CHLORIDE 0.9% 100 ML (18:00)
[2017-10-18] MEDS: VASOPRESSIN 60 UNIT in DEXTROSE 5% 57 ML IV (00:22)
[2017-10-18] MEDS: INSULIN ASPART [NOVOLOG] 3 ML PEN SC ×2 (01:00→05:00)
[2017-10-18] MEDS: IPRATROPIUM (HFA) 12.9 GM INHALER INH (01:27)
[2017-10-18] MEDS: ALBUTEROL HFA 8 GM INHALER INH (01:27)
[2017-10-18 01:52] LABS: AADO2 Arterial 588.3 mmHg (7.0-24.0); Allen Test ACCEPTAB; Arterial Base Excess -11.1 mmol/L (-3.0-3); Arterial Blood Gas Oxygen Sat 86.8 mmHG (95.0-100.0); Arterial COHb 0.7 % (0.0-3.0); Arterial Fraction of Oxyhgb 85.8 % (93.0-99.0); Arterial HCO3 18.8 mmol/L (22.0-26.0); Arterial MetHb 0.5 % (0.0-1.5); Arterial Total Hemglobin 11.7 g/dl (12.0-18.0); Arterial pCO2 61.3 mmhg (35-45); MODE VENT - PC; Site Right Radial
[2017-10-18] MEDS: ACCU-CHEK XX (01:52)
[2017-10-18] MEDS: DOPamine-D5W 1.6 MG/ML 250 ML IV ×2 (02:02→06:07)
[2017-10-18] MEDS: SOD CHLORIDE 0.9% 250 ML IV (02:40)
[2017-10-18] MEDS: NA BICARBONATE 8.4% 50 ML SYG IV (02:52)
[2017-10-18] MEDS: ALBUMIN HUMAN 25% 100 ML IV (02:58)
[2017-10-18] MEDS ORDERED: DOPamine 1,600 MG in DEXTROSE 5% 210 ML IV (03:00)
[2017-10-18 06:11] LABS: ABNORMAL IP MESSAGE 1; HEMOGLOBIN 9.3 g/dl (14.0-18.0); MEAN CORPUSCULAR HEMOGLOBIN 29.4 pg (29.0-33.0); MEAN CORPUSCULAR HGB CONC 32.1 g/dl (32.0-37.0); MEAN CORPUSCULAR VOLUME 91.8 fl (82.0-101.0); MEAN PLATELET VOLUME 12.2 fl (7.4-10.4); NUCLEATED RED BLOOD CELLS% 3.6 /100WBC (0.0-0.0); PLATELET COUNT 85 10^3/UL (140-415); POSITIVE DIFF @See below; RED BLOOD COUNT 3.16 10^6/ul (4.70-6.10); RED CELL DISTRIBUTION WIDTH 17.2 % (11.5-14.5)
[2017-10-18 06:11] LABS: WHITE BLOOD COUNT 9.8 10^3/ul (4.8-10.8)
[2017-10-18] MEDS: metroNIDAZOLE 500 MG/NS (PMX) 100 ML IVPB (06:14)
[2017-10-18 06:48] LABS: ADD MAN DIFF? YES; ANION GAP 27 (8-16); BLOOD UREA NITROGEN 72 mg/dl (7-20); CALCIUM 7.8 mg/dl (8.4-10.2); CARBON DIOXIDE 20 mmol/L (21-31); CHLORIDE 100 mmol/L (97-110); GLUCOSE 72 mg/dl (70-220); SODIUM 142 mmol/L (135-144)
[2017-10-18] MEDS ORDERED: NA BICARBONATE 8.4% 50 ML SYG (07:00)
[2017-10-18] MEDS ORDERED: EPINEPHrine 0.1 MG/ML SYG (07:00)
[2017-10-18] MEDS ORDERED: CA CHLORIDE 10% 10 ML SYRINGE (07:00)
[2017-10-18 07:18] LABS: CREATININE 2.75 mg/dl (0.61-1.24)
[2017-10-18 07:20] LABS: POTASSIUM 5.3 mmol/L (3.5-5.1)
[2017-10-18 09:10] LABS: ANISOCYTOSIS 1+ (0-0); BAND NEUTROPHILS #M 3.9 10^3/ul (0.0-0.6); BAND NEUTROPHILS % (M) 40 % (0-4); EOSINOPHILS % (M) 5 % (0-7); ERYTHROBLAST% (NRBC) (M) 5 % (0-0); GIANT THROMBO% (M) 1 % (0-0); LYMPHOCYTES #M 1.3 10^3/ul (0.8-2.9); LYMPHOCYTES % (M) 14 % (15-51); METAMYELOCYTES #M 0.3 10^3/ul (0.0-0.0); METAMYELOCYTES %M 4 % (0-0); MICROCYTOSIS 1+ (0-0); MONOCYTES % (M) 1 % (0-11); MYELOCYTES % (M) 1 % (0-0); PLATELET ESTIMATE DECREASED; POLYCHROMASIA 1+ (0-0); SEG NEUT #M 3.8 10^3/ul (1.7-7.5); SEGMENTED NEUTROPHILS (M) % 35 % (39-77); SMUDGE%M 2 % (0-0)
== END 2017-10-18 07:30 | disposition expired | DRG 329 ==
LOC: PP2 15:51 → ICU 09-01 → MS1 09-02 17:50 → MS4 09-04 21:25 → ICU 09-04 22:53
PROC: 0DQH0ZZ Repair Cecum, Open Approach (ICD-10-PCS; principal; 2017-09-05 02:30)
PROC: 5A1955Z Respiratory Ventilation, Greater than 96 Consecutive Hours (ICD-10-PCS; 2017-09-05 02:40)
PROC: 02HV33Z Insertion of Infusion Device into Superior Vena Cava, Percutaneous Approach (ICD-10-PCS; 2017-09-05 02:40)
PROC: 02HV33Z Insertion of Infusion Device into Superior Vena Cava, Percutaneous Approach (ICD-10-PCS; 2017-09-05 02:40)
PROC: 30233N1 Transfusion of Nonautologous Red Blood Cells into Peripheral Vein, Percutaneous Approach (ICD-10-PCS; 2017-09-05 02:40)
PROC: 0BH17EZ Insertion of Endotracheal Airway into Trachea, Via Natural or Artificial Opening (ICD-10-PCS; 2017-09-05 02:40)
PROC: 0DH63UZ Insertion of Feeding Device into Stomach, Percutaneous Approach (ICD-10-PCS; 2017-09-05 02:40)
DX: K63.1 Perforation of intestine (nontraumatic) (principal); K65.8 Other peritonitis; J69.0 Pneumonitis due to inhalation of food and vomit; J96.00 Acute respiratory failure, unspecified whether with hypoxia or hypercapnia; R65.21 Severe sepsis with septic shock; N17.0 Acute kidney failure with tubular necrosis; A41.52 Sepsis due to Pseudomonas; G92 Toxic encephalopathy; I50.33 Acute on chronic diastolic (congestive) heart failure; J15.1 Pneumonia due to Pseudomonas; J84.9 Interstitial pulmonary disease, unspecified; K56.7 Ileus, unspecified; B37.49 Other urogenital candidiasis; J80 Acute respiratory distress syndrome; J68.0 Bronchitis and pneumonitis due to chemicals, gases, fumes and vapors; E87.0 Hyperosmolality and hypernatremia; I46.9 Cardiac arrest, cause unspecified; E66.01 Morbid (severe) obesity due to excess calories; K63.89 Other specified diseases of intestine; Z95.1 Presence of aortocoronary bypass graft; J44.9 Chronic obstructive pulmonary disease, unspecified; Z66 Do not resuscitate; K31.84 Gastroparesis; E87.6 Hypokalemia; Z96.651 Presence of right artificial knee joint; Z53.31 Laparoscopic surgical procedure converted to open procedure; R56.9 Unspecified convulsions; I48.91 Unspecified atrial fibrillation; I11.0 Hypertensive heart disease with heart failure; R63.3 Feeding difficulties; K20.9 Esophagitis, unspecified; R19.7 Diarrhea, unspecified; D64.9 Anemia, unspecified
CPT/HCPCS: 31500; 36430; 36569; 36600; 70450; 71010; 71045; 74000; 74176; 76604; 76700; 76775; 76937; 80048; 80053; 80076; 80150; 80202; 81001; 81003; 82040; 82043; 82140; 82150; 82270; 82533; 82550; 82553; 82607; 82728; 82803; 82962; 83540; 83605; 83735; 83880; 84100; 84155; 84300; 84443; 84450; 84484; 84560; 85014; 85018; 85025; 85610; 85730; 86644; 86710; 86713; 86850; 86900; 86901; 86920; 87040; 87070; 87075; 87081; 87086; 87275; 87276; 87279; 87280; 89220; 90935; 92610; 92950; 93005; 93306; 93970; 94002; 94003; 94640; 94660; 94664; 94770; 95819; 97163; J1120; J1940